=== PATIENT | female | born 1960 | race Caucasian/White ===

== ENCOUNTER 2019-10-22 20:00 | Emergency (ER) | payer MEDICARE, MEDICAID, SELFPAY ==
--- NOTE | ~2019-10-22 | XR_ITS ---
XR hand RT min 3V, XR wrist RT min 3V 10/22/2019 20:39 Indication: Diffuse right hand and wrist pain with swelling. Status post hand stuck in appliance. Procedure: 3 views right hand and 4 views right wrist Comparison: No prior studies for comparison. Findings: No acute fracture, subluxation or dislocation. No significant focal soft tissue abnormality . There is mild polyarticular osteoarthritis. No foreign bodies. No erosive changes. Impression: 1: No acute fracture. Reviewed, dictated and finalized at location A. LAC POLISHER Impression: 1: No acute fracture. Impression: 1: No acute fracture.
[2019-10-22 20:19] VITALS: BP 131/94; PULSE 97; RESP 20; TEMP 36.6; O2SAT 99
[2019-10-22] MEDS: KETOROLAC (*BKC) 60 MG/2 ML VIAL IM (20:34)
--- NOTE | 2019-10-22 20:44 | ED.UPPEXIN ---
HPI - Extremity Injury (Upper) General Chief Complaint: Extremity Injury, Upper Stated Complaint: hurt hand Source: patient Mode of arrival: ambulatory Limitations: no limitations History of Present Illness HPI narrative: 59 y/o Patient presents with injury to her right hand the ulnar aspect after she got it caught in a social worker aide causing some bruising and swelling to the ulnar side of her right hand with pain and tenderness in her 4th and 5th fingers with good range of motion strong brisk radial pulse with some mild tingling in her right hand has good range of motion although decreased secondary to pain and inflammation. complaint: injury to: right Onset (ago): hour(s) Other Extremity Injury: Right: hand and wrist Other injuries: none Handedness: right Place: home Severity: moderate Severity scale (1-10): 5 Relieving factors: cold therapy and immobilization Exacerbating factors: none, immobilization and movement of extremity Context: injury Associated symptoms: denies other symptoms Related Data Home Medications Medication Instructions Recorded Confirmed albuterol sulfate 2 puff INHALATION Q4-6H PRN 10/22/19 10/22/19 duloxetine 60 mg PO BID 10/22/19 10/22/19 Allergies Allergy/AdvReac Type Severity Reaction Status Date / Time codeine Allergy Mild NAUSEA AND Verified 10/22/19 20:29 VOMITTING Sulfa (Sulfonamide Allergy Mild Nausea Verified 10/22/19 20:29 Antibiotics) Sulfonamides Allergy Intermediate Unknown Uncoded 10/22/19 20:29 [facility] Past Medical History Medical History Anxiety Fibromyalgia HTN (hypertension) Social History Social History Smoking status: Never smoker Exam Const: General: no acute distress and alert Orientation/consciousness: patient oriented x3 HENMT: Head: normal to inspection Eyes: Conjunctivae: conjunctivae normal EOM: EOMs intact bilaterally Neck: Neck: normal visual inspection Chest: Chest palpation & inspection: normal inspection of the chest Resp: Effort & Inspection: normal respiratory effort Auscultation: clear to auscultation bilaterally Cardio: Rate: regular rate Rhythm: regular rhythm GI: GI Palp: Yes Soft to palpation Back/Spine/Pelvis: Back: no CVA tenderness Skin: General skin exam: normal color Rashes: no rashes Extrem: Other: Right hand with some bruising and swelling with mild decreased range of motion secondary to pain and inflammation has a good strong brisk radial pulse Course Vital Signs Vital signs: Vital Signs Temperature 36.6 C 10/22/19 20:19 Pulse Rate 97 10/22/19 20:19 Respiratory Rate 10/22/19 20:19 Blood Pressure 131/94 H 10/22/19 20:19 Pulse Oximetry 99 10/22/19 20:19 Temperature 36.6 C 10/22/19 20:19 Pulse Rate 97 10/22/19 20:19 Respiratory Rate 10/22/19 20:19 Blood Pressure 131/94 H 10/22/19 20:19 Pulse Oximetry 99 10/22/19 20:19 Critical Care Time Critical Care Time Critical Care Time: No Discharge Plan Discharge Clinical Impression: Sprain and strain of wrist Sprain of hand, right Qualifiers: Encounter type: initial encounter Qualified Code(s): S63.91XA - Sprain of unspecified part of right wrist and hand, initial encounter Contusion Qualifiers: Encounter type: initial encounter Contusion area: hand Laterality: right Qualified Code(s): S60.221A - Contusion of right hand, initial encounter Patient Disposition: Home, Self-Care Condition: Stable Instructions: Antibiotic Form Additional Instructions: take Motrin 600 mg twice daily with meals x1 week, can take prescribed medicine as needed, and follow-up with primary care physician if symptoms persist or worsen. Prescriptions: New tramadol [Ultram] 50 mg tablet 50 mg PO Q6H PRN (Reason: pain) Qty: 20 RF: 0 No Action albuterol sulfate 90 mcg/actuation HFA aerosol inhaler
[2019-10-22 21:01] VITALS: RESP 15
== END 2019-10-22 21:02 | disposition home or self-care (01) ==
PROVIDERS: Emergency Provider Emergency Medicine; PCP Family Medicine
DX: S63.91XA Sprain of unspecified part of right wrist and hand, initial encounter (principal); S60.221A Contusion of right hand, initial encounter; W22.8XXA Striking against or struck by other objects, initial encounter
CPT/HCPCS: 73110; 73130; 96372; 99283; J1885

== ENCOUNTER 2019-10-30 11:40 | Emergency (ER) | payer MEDICARE, MEDICAID, SELFPAY ==
[2019-10-30 11:40] VITALS: BP 134/84; PULSE 64; RESP 18; TEMP 36.2; O2SAT 97
--- NOTE | 2019-10-30 12:02 | ED.GENADULT ---
HPI - General Adult General Chief complaint: Unspecified Stated complaint: Needs to have a splint/cast put on History of Present Illness HPI narrative: Vanita was referred to the emergency department by her PCP for a splint placement. She a had an injury to her right wrist on 10/23. Radiographs at that time showed no fracture. However she had continued pain and bruising to her PCP was concern for fracture and center of with a script for an ulnar gutter placement. She has no concerns other than her wrist pain. She has had no new injury to the area. She reports good sensation and movement. MD complaint: Referred to ED by PCP for ulnar gutter splint Related Data Home Medications Medication Instructions Recorded Confirmed albuterol sulfate 2 puff INHALATION Q4-6H PRN 10/22/19 10/22/19 duloxetine 60 mg PO BID 10/22/19 10/22/19 Allergies Allergy/AdvReac Type Severity Reaction Status Date / Time codeine Allergy Mild NAUSEA AND Verified 10/22/19 20:29 VOMITTING Sulfa (Sulfonamide Allergy Mild Nausea Verified 10/22/19 20:29 Antibiotics) Sulfonamides Allergy Intermediate Unknown Uncoded 10/22/19 20:29 Review of Systems Constitutional: Constitutional: Denies chills and Denies fever(s) Eyes: Eyes: Denies change in vision ENT: Denies Normal hearing present, Denies vertigo and Denies dizziness Cardiovascular: Cardiovascular: Denies chest pain with activity, Denies syncope, Denies edema and Denies dyspnea on exertion Respiratory: Respiratory: Denies cough Gastrointestinal: Gastrointestinal: Denies abdominal pain, Denies diarrhea, Denies nausea and Denies vomiting Genitourinary: Genitourinary: Denies hematuria and Denies dysuria Musculoskeletal: Musculoskeletal: Denies deformity Neurologic: Denies behavioral changes, Denies confusion, Denies vertigo, Denies dizziness, Denies syncope and Denies loss of vision Psychiatric: Psychiatric: Denies anxiety, Denies behavioral changes, Denies confusion and Denies depression Endocrine: Endocrine: Reports no additional endocrine complaints Hematologic/Lymphatic: Hematologic/Lymphatic: Reports no additional hematologic/lymphatic complaints Allergic/Immunologic: Allergic/Immunologic: Reports no additional allergic/immunologic complaints [facility] Past Medical History Medical History Anxiety Fibromyalgia HTN (hypertension) Social History Social History Smoking status: Never smoker Exam Const: General: cooperative, healthy appearing, comfortable, no acute distress, well developed, alert, awake and Physically active; No confusion Orientation/consciousness: oriented to person, oriented to place, oriented to time and No confusion HENMT: Head: normal to inspection, normocephalic and atraumatic Ears: hearing grossly normal bilaterally and external ears normal General nose exam: Normal external nose present Resp: Effort & Inspection: normal respiratory effort, able to speak in complete sentences and no respiratory distress Cardio: Jugular venous distension: no JVD Rate: regular rate Rhythm: regular rhythm Neuro: General: oriented to person, oriented to place, oriented to time and No confusion Cranial nerves: Yes Equal, round and reactive pupils present and No Normal hearing present Other: Brown colored contusion on the dorsal side of her right wrist that was tender to palpation Extrem: Other: discoloration as above. Had full range of motion in her right wrist but was tender to palpation on the lateral side of her right wrist. Decreased strength secondary to have pain Psych: Mental Status: mental status grossly normal Course Course Emergency Course: Vanita was seen and evaluated. She was neurovascularly intact and radiographs in our system showed no fracture. She was placed in a in ulnar gutter splint by her PCP and her request and to follow-up with
--- NOTE | 2019-10-30 12:57 | PC.NURSE ---
r. R. SHORT ARM [facility] SPLINT APPLYED ORDERED.FINGERS PINK STATES FELL GOOD. TO HAVE FOLLOW UP WITH HER MD NEXT WEEK.
== END 2019-10-30 12:16 | disposition home or self-care (01) ==
PROVIDERS: Emergency Provider Family Medicine; PCP Family Medicine
DX: M25.531 Pain in right wrist (principal)
CPT/HCPCS: 29125; 99282

== ENCOUNTER 2019-11-08 08:16 | Outpatient (CLI) | payer MEDICARE, MEDICAID, SELFPAY ==
--- NOTE | ~2019-11-08 | XR_ITS ---
EXAMINATION: XR chest 2V DATE: 11/08/2019 08:30 INDICATION: Cough and lung pain. TECHNIQUE: Frontal and lateral views of the chest were obtained. COMPARISON: Chest 2 views 12/27/2018, chest CT 01/04/2017 FINDINGS: There are innumerable calcified nodules in the lungs and calcified hilar lymph nodes, consi stent with old granulomatous disease. No pleural effusion or pneumothorax. The heart size is normal. IMPRESSION: 1. No acute cardiopulmonary disease. Reviewed, dictated and finalized at location A. ER RUNNER
== END 2019-11-08 08:17 | disposition home or self-care (01) ==
LOC: CHSIMG 08:18
PROVIDERS: PCP Family Medicine; Visit Provider Family Medicine
DX: R05 Cough (principal)
CPT/HCPCS: 71046

== ENCOUNTER 2019-12-06 13:30 | Outpatient (CLI) | payer MEDICARE, SELFPAY ==
[2019-12-06 14:07] LABS: Influenza Control Valid (Valid)
== END 2019-12-06 13:31 | disposition home or self-care (01) ==
PROVIDERS: PCP Family Medicine; Visit Provider Family Medicine
DX: J06.9 Acute upper respiratory infection, unspecified (principal)
CPT/HCPCS: 87804

== ENCOUNTER 2020-02-07 00:34 | Emergency (ER) | payer MEDICARE, MEDICAID, SELFPAY ==
--- NOTE | ~2020-02-07 | CT_ITS ---
EXAMINATION: CT brain wo con DATE: 02/07/2020 05:57 INDICATION: Head injury. TECHNIQUE: Computed tomography (CT) of the head was performed without intravenous contrast. The mA wa s adjusted according to patient size. Iterative reconstruction technique was employed. The dose-lengt h product was 605.33 mGy-cm. COMPARISON: None FINDINGS: There is no intracranial hemorrhage, acute infarction, or abnormal intracranial mass lesion . The ventricles are normal in size. There are likely changes of left ocular lens replacement surgery . The paranasal sinuses are clear. The mastoid air cells are normal. IMPRESSION: 1. Normal brain. Reviewed, dictated and finalized at location A. IMPRESSION: 1. Normal brain.
--- NOTE | ~2020-02-07 | CT_ITS ---
EXAMINATION: CT cervical spine wo con DATE: 02/07/2020 05:58 INDICATION: Head injury. TECHNIQUE: Computed tomography (CT) of the cervical spine was performed without intravenous contrast. Automated exposure control and iterative reconstruction technique were employed. The dose-length pro duct was 605.33 mGy-cm. COMPARISON: CT cervical spine 06/15/2019 FINDINGS: Bone alignment is normal. Vertebral body heights are normal. There is mildly decreased disc height at C4-C5 and C5-C6. Calcified pulmonary nodules are consistent with old granulomatous disease . The following disc levels are specifically discussed: C2-C3: There is mild left uncovertebral joint osteoarthritis. There is mild right and severe left fac et joint osteoarthritis. There is mild left neural foraminal stenosis. There is no central canal sten osis. C3-C4: There is moderate right and mild left uncovertebral joint osteoarthritis. There is mild right and severe left facet joint osteoarthritis. There is mild bilateral neural foraminal stenosis. There is no central canal stenosis. C4-C5: There is severe bilateral uncovertebral joint osteoarthritis. There is moderate right and jossue re left facet joint osteoarthritis. There is mild bilateral neural foraminal stenosis. There is mild central canal stenosis. C5-C6: There is moderate bilateral uncovertebral joint osteoarthritis. There is mild bilateral facet joint osteoarthritis. There is mild bilateral neural foraminal stenosis. There is no central canal st enosis. C6-C7: There is no uncovertebral joint osteoarthritis. There is no facet joint osteoarthritis. There is no neural foraminal stenosis. There is no central canal stenosis. C7-T1: There is no uncovertebral joint osteoarthritis. There is mild bilateral facet joint osteoarthr itis. There is no neural foraminal stenosis. There is no central canal stenosis. IMPRESSION: 1. No fracture. 2. Mild cervical spondylosis. Reviewed, dictated and finalized at location A.
[2020-02-07 00:35] VITALS: BP 107/52; PULSE 65; RESP 20; TEMP 36.4; O2SAT 98
--- NOTE | 2020-02-07 00:42 | ED.WOUNDLAC ---
HPI - Wound/Laceration General Chief Complaint: Wound/Laceration Stated Complaint: Head injury Source: patient Mode of arrival: ambulatory Limitations: no limitations History of Present Illness HPI narrative: patient presents some after she fell out of bed and injured her occipital scalp causing a laceration, occurred approximately half an hour ago with some no blurry vision no headaches does have some neck discomfort, no nausea vomiting. Patient has past medical history of hypertension. No focal deficits has good range of motion in her neck although mildly tender. Onset (ago): hour(s) Location: scalp Place: home Context: accidental Associated symptoms: pain Related Data Home Medications Medication Instructions Recorded Confirmed albuterol sulfate 2 puff INHALATION Q4-6H PRN 10/22/19 10/22/19 duloxetine 60 mg PO BID 10/22/19 10/22/19 metoprolol tartrate 25 mg PO BID 02/07/20 02/07/20 omeprazole 40 mg PO DAILY 02/07/20 02/07/20 sumatriptan succinate 100 mg PO 02/07/20 Allergies Allergy/AdvReac Type Severity Reaction Status Date / Time codeine Allergy Mild NAUSEA AND Verified 10/22/19 20:29 VOMITTING Sulfa (Sulfonamide Allergy Mild Nausea Verified 10/22/19 20:29 Antibiotics) Sulfonamides Allergy Intermediate Unknown Uncoded 10/22/19 20:29 Review of Systems Review of Systems: All systems reviewed & are unremarkable except as noted in HPI and below PMFSH Past Medical History Medical History Anxiety Fibromyalgia HTN (hypertension) Social History Social History Smoking status: Never smoker Gender identity (if verbalized by the patient): Female Exam Const: General: no acute distress Orientation/consciousness: patient oriented x3 HENMT: Head: normal to inspection Eyes: Conjunctivae: conjunctivae normal Pupils: Equal, round and reactive pupils present EOM: EOMs intact bilaterally Neck: Neck: normal visual inspection and no lymphadenopathy Chest: Chest palpation & inspection: normal inspection of the chest Resp: Effort & Inspection: normal respiratory effort Cardio: Rate: regular rate Rhythm: regular rhythm GI: GI Palp: Yes Soft to palpation Skin: General skin exam: normal color Rashes: no rashes Neuro: General: patient oriented x3, moves all extremities, no meningeal signs and no focal motor deficits Extrem: General: normal to inspection Other: laceration to occipital area of her scalp some mild neck discomfort with palpation. Psych: Mental Status: mental status grossly normal Affect: normal affect Attitude: cooperative Thought content: Yes Normal thought content present Procedures Laceration Laceration 1: Date: 02/07/20 Time: 00:57 Site: scalp Size (cm): 3 Description: linear ====== Skin Level ====== Skin layer closed with: [email or web address] Number of sutures: 5 ====== Subcutaneous Layer ====== ====== Muscle Layer ====== ====== Tendon Layer ====== Critical Care Time Critical Care Time Critical Care Time: No Discharge Plan Discharge Clinical Impression: Laceration Prescriptions: No Action albuterol sulfate 90 mcg/actuation HFA aerosol inhaler 2 puff INHALATION Q4-6H PRN (Reason: Shortness Of Breath) RF: 0 duloxetine 60 mg capsule,delayed release(DR/EC) 60 mg PO BID RF: 0 sumatriptan succinate 100 mg tablet 100 mg PO PRN PRN (Reason: Headache) RF: 0 omeprazole 40 mg capsule,delayed release(DR/EC) 40 mg PO DAILY RF: 0 metoprolol tartrate 25 mg tablet 25 mg PO BID RF: 0 Follow-up/Referrals: Jaylon Garnett MD [Primary Care Provider] -
[2020-02-07 01:03] VITALS: BP 136/89; PULSE 82; RESP 20; TEMP 36.6; O2SAT 98
== END 2020-02-07 01:24 | disposition home or self-care (01) ==
PROVIDERS: Emergency Provider Emergency Medicine; PCP Family Medicine
DX: S01.01XA Laceration without foreign body of scalp, initial encounter (principal); I10 Essential (primary) hypertension; W06.XXXA Fall from bed, initial encounter
CPT/HCPCS: 12002; 70450; 72125; 99282; 99284

== ENCOUNTER 2020-03-19 10:09 | Outpatient (CLI) | payer MEDICARE, MEDICAID, SELFPAY ==
--- NOTE | ~2020-03-19 | XR_ITS ---
EXAMINATION: XR hand RT min 3V EXAM DATE: 03/19/2020 10:31 INDICATION: Pain in the joints of right hand. States injury 6 months ago, 4th finger pain. TECHNIQUE: Right hand frontal, lateral and oblique projections obtained and reviewed. Comparison is m bala to prior examination from 10/22/2019. FINDINGS: Right metacarpal bones are unremarkable. No periosteal reaction to suggest subacute fract ure. There are no acute fractures or dislocations identified. There is no subcutaneous gas. The sof t tissue is unremarkable. There are no radiopaque foreign bodies. There is mild polyarticular inte rphalangeal primary osteoarthritis. IMPRESSION: Mild polyarticular right interphalangeal osteoarthritis. Reviewed, dictated and finalized at location B.
== END 2020-03-19 10:10 | disposition home or self-care (01) ==
LOC: CHSIMG 10:11
PROVIDERS: PCP Family Medicine; Visit Provider Family Medicine
DX: M25.541 Pain in joints of right hand (principal)
CPT/HCPCS: 73130

== ENCOUNTER 2020-03-24 12:35 | Outpatient (CLI) | payer MEDICARE, MEDICAID, SELFPAY ==
--- NOTE | ~2020-03-24 | MM_ITS ---
EXAMINATION: MM screening [facility] BI w kim HISTORY: Screening mammogram TECHNIQUE: Craniocaudal and mediolateral oblique 3-D tomosynthesis images were obtained and synthetic 2-D images were generated. CAD analysis was submitted and interpreted. COMPARISON: Comparison to multiple prior studies sequentially, with oldest reviewed study dated 06/14. BREAST PARENCHYMAL COMPOSITION: There are scattered areas of fibroglandular density. FINDINGS: There is no evidence of suspicious mass, calcification, or architectural distortion to sugg est malignancy in either breast. There has been no suspicious interval change. IMPRESSION: 1. No mammographic evidence of malignancy. 2. Recommend routine screening mammography in one year. BI-RADS Category 1: Negative Reviewed, dictated and finalized at location A.
== END 2020-03-24 12:36 | disposition home or self-care (01) ==
LOC: CHSIMG 12:36
PROVIDERS: PCP Family Medicine; Visit Provider Family Medicine
DX: Z12.31 Encounter for screening mammogram for malignant neoplasm of breast (principal)
CPT/HCPCS: 77063; 77067

== ENCOUNTER 2020-03-26 12:10 | Outpatient (CLI) | payer MEDICARE, MEDICAID, SELFPAY ==
--- NOTE | ~2020-03-26 | DEXA_ITS ---
BMD(1) Young-Adult(2) Age-Matched(3) Region (g/cm2) T-score Z-score WHO Classification L1 1.081 -0.5 0.0 Normal L2 1.221 0.1 0.6 Normal L3 1.264 0.4 0.9 Normal L4 1.261 0.3 0.8 Normal L1-L4 1.211 0.1 0.6 Normal Trend: L1-L4 Change vs Change vs Measured Age BMD(1) Baseline Previous Date (years) (g/cm2) (%) (%) 03/26/2020 60.1 1.211 -4.4* -4.4* 11[age]25/2016 56.7 1.267 baseline - * - Indicates significant change based on 95% confidence interval. 1 - Statistically 68% of repeat scans fall within 1SD (+- 0.010 g/cm2 for AP Spine L1-L4) 2 - [place] (Combined NHANES (ages 20-30) / Sky[employer] (ages 20-40)) AP Spine Reference Population (v112) 3 - Matched for Age, Weight (females 25-100 kg), Ethnic 11 - World Health Organization - Definition of Osteoporosis and Osteopenia for Women: Normal = T-score at or above -1.0 SD; Osteopenia = T-score between -1.0 and -2.5 SD; Osteoporosis = T-score at or below -2.5 SD; (WHO definitions only apply when a young healthy Women reference database is used to determine T-scores.) Printed: 03/26/2020 1:01:48 PM (13.60)76:3.00:50.00:12.0 0.00:9.96 0.60x1.05 27.9:%Fat=52.1% 0.00:0.00 0.00:0.00 Filename: [id number] Scan Mode: Standard;bTendocan 37.0 [employer] [id number] BMD(1) Young-Adult(2,7) Age-Matched(3) Region (g/cm2) T-score Z-score WHO Classification Neck Left 1.194 1.1 1.9 Normal Right 1.029 -0.1 0.7 Normal Mean 1.112 0.5 1.3 Normal Difference 0.164 -1.2 -1.2 - Total Left 1.103 0.8 1.2 Normal Right 0.955 -0.4 0.0 Normal Mean 1.029 0.2 0.6 Normal Difference 0.149 -1.2 -1.2 - Hip [place] Length Comparison (mm) (Right = 101.4 mm) (Mean = 108.0 mm) (Left = 101.4 mm) Trend: Total Mean Change vs Change vs Measured Age BMD(1) Baseline Previous Date (years) (g/cm2) (%) (%) 03/26/2020 60.1 1.029 baseline - 1 - Statistically 68% of repeat scans fall within 1SD (+- 0.010 g/cm2 for DualFemur Total) 2 - [place] (Combined NHANES (ages 20-30) / [employer] (ages 20-40)) Femur Reference Population (v112) 3 - Matched for Age, Weight (females 25-100 kg), Ethnic 7 - DualFemur Total T-score difference is 1.2. Asymmetry is Significant. 11 - World Health Organization - Definition of Osteoporosis and Osteopenia for Women: Normal = T-score at or above -1.0 SD; Osteopenia = T-score between -1.0 and -2.5 SD; Osteoporosis = T-score at or below -2.5 SD; (WHO definitions only apply when a young healthy Women reference database is used to determine T-scores.) Printed: 03/26/2020 1:01:49 PM (13.60); Filename: [id number]; Right Femur; 20.7:%Fat=37.4%; Neck Angle (deg)= 56; Scan Mode: Standard 37.0 uGy; Left Femur; 21.8:%Fat=38.4%; Neck Angle (deg)= 62; Scan Mode: Standard 37.0 uGy [employer] [id number] Dear Marlene Calvert, Your patient Vanita Valladares completed a BMD test on 03/26/2020 using the [employer] DXA System (analysis version: 13.60) manufactured by [employer]. The following summarizes the results of our evaluation. PATIENT BIOGRAPHICAL: Name: Vanita Valladares Date: 1960 Height: 66.0 in.
== END 2020-03-26 12:11 | disposition home or self-care (01) ==
LOC: CHSIMG 12:12
PROVIDERS: PCP Family Medicine; Visit Provider Nurse Practitioner Family
DX: Z78.0 Asymptomatic menopausal state (principal)
CPT/HCPCS: 77080

== ENCOUNTER 2020-05-22 11:53 | Outpatient (CLI) | payer MEDICARE, SELFPAY ==
[2020-05-23 14:38] LABS: SARS-CoV-2 RNA PCR Negative
== END 2020-05-22 11:54 | disposition home or self-care (01) ==
LOC: CHSLAB 11:56
PROVIDERS: PCP Family Medicine; Visit Provider Family Medicine
DX: J00 Acute nasopharyngitis [common cold] (principal); Z20.828 Contact with and (suspected) exposure to other viral communicable diseases
CPT/HCPCS: 87635; C9803; U0003

== ENCOUNTER 2021-03-25 12:43 | Outpatient (CLI) | payer MEDICARE, MEDICAID, SELFPAY ==
--- NOTE | ~2021-03-25 | MM_ITS ---
EXAMINATION: MM screening [facility] BI w kim HISTORY: Screening TECHNIQUE: Craniocaudal and mediolateral oblique 3-D tomosynthesis images were obtained and synthetic 2-D images were generated. CAD analysis was submitted and interpreted. COMPARISON: Comparison to multiple prior studies sequentially, with oldest reviewed study dated 10/25. BREAST PARENCHYMAL COMPOSITION: There are scattered areas of fibroglandular density. FINDINGS: There are developing asymmetries in the right breast. The left breast is stable without jason dence for malignancy. IMPRESSION: 1. Developing right breast asymmetries. 2. Additional mammographic views and possible breast ultrasound are recommended. BI-RADS Category 0: Incomplete: Needs additional imaging evaluation. Reviewed, dictated and finalized at location A. IMPRESSION: 1. Developing right breast asymmetries. 2. Additional mammographic views and possible breast ultrasound are recommended . BI-RADS Category 0: Incomplete: Needs additional imaging evaluation.
== END 2021-03-25 12:44 | disposition home or self-care (01) ==
LOC: CHSIMG 12:47
PROVIDERS: PCP Family Medicine; Visit Provider Family Medicine
DX: Z12.31 Encounter for screening mammogram for malignant neoplasm of breast (principal)
CPT/HCPCS: 77063; 77067

== ENCOUNTER 2021-04-01 08:37 | Outpatient (CLI) | payer MEDICARE, MEDICAID, SELFPAY ==
--- NOTE | ~2021-04-01 | MMUS_ITS ---
CORRECTED REPORT order change 04/02/21 [facility] [place] EXAMINATION: MM diagnostic mammo unilat RT, US breast RT limited HISTORY: Right breast asymmetries on screening mammogram TECHNIQUE: Additional 3-D tomosynthesis images of the right breast were performed and synthetic 2-D images were generated. CAD analysis was submitted and interpreted. High resolution limited right breast ultrasound was performed. COMPARISON: Prior mammograms dating back to 10/25/2016 FINDINGS: MAMMOGRAPHIC FINDINGS: There is a 6 mm mass in the subareolar aspect of the slightly outer breast at the 9:00 location which appears to be stable when compared to prior mammograms. An asymmetry in the posterior third of the slightly inner breast on screening mammogram disperses with spot compression. ULTRASOUND: There is a 6 mm oval, circumscribed, parallel, hypoechoic mass with no posterior features or internal vascularity at the 9:00 location near the nipple. IMPRESSION: 1. Probably benign right breast mass. 2. Recommend 6 month follow-up right diagnostic mammogram and ultrasound. BI-RADS category 3, probably benign findings. Reviewed, dictated and finalized at location A. MTDD IMPRESSION: 1. Probably benign right breast mass. 2. Recommend 6 month follow-up right diagnostic mammogram and ultrasound. BI-RADS category 3, probably benign findings.
== END 2021-04-01 08:38 | disposition home or self-care (01) ==
PROVIDERS: PCP Family Medicine; Visit Provider Family Medicine
DX: R92.8 Other abnormal and inconclusive findings on diagnostic imaging of breast (principal)
CPT/HCPCS: 76642; 77061; 77065; G0279

== ENCOUNTER 2021-05-06 10:18 | Outpatient (CLI) | payer MEDICARE, MEDICAID, SELFPAY ==
--- NOTE | ~2021-05-06 | XR_ITS ---
EXAMINATION: XR elbow LT min 3V DATE: 05/06/2021 10:38 INDICATION: Left elbow pain TECHNIQUE: Anteroposterior, two oblique and lateral views of the left elbow were obtained. COMPARISON: 06/30/2006 FINDINGS: Alignment is normal. No fracture or joint effusion. Joint spaces are normal. Soft tissues a re unremarkable. IMPRESSION: 1. No acute osseous abnormality. Reviewed, dictated and finalized at location B.
== END 2021-05-06 10:19 | disposition home or self-care (01) ==
LOC: CHSLAB 10:20
PROVIDERS: PCP Family Medicine; Visit Provider Family Medicine
DX: M25.522 Pain in left elbow (principal)
CPT/HCPCS: 73080

== ENCOUNTER 2021-05-12 09:34 | Outpatient (CLI) | payer MEDICARE, MEDICAID, SELFPAY ==
--- NOTE | ~2021-05-12 | MR_ITS ---
EXAMINATION: MR elbow LT wo con DATE: 05/12/2021 12:17 INDICATION: Left arm pain TECHNIQUE: Magnetic resonance imaging (MRI) of the left elbow was performed without intravenous contr ast. Sequences included coronal, axial, and sagittal PD-weighted FS FSE and coronal, axial, and sagit leah PD-weighted FSE. COMPARISON: None FINDINGS: Osseous/other: Normal alignment. Normal marrow signal with no marrow edema, fracture, osteochondral lesion or abnor mal marrow replacing process. Minimal osteoarthritis at the left elbow with mild nonuniform joint spa ce narrowing along the ulnar side of the ulnotrochlear articulation. Tendons: Triceps and brachialis tendons are normal. Mild tendinopathy without discrete tear at the radial inse rtion of the distal biceps brachii tendon. Moderate tendinopathy at the lateral epicondylar origin of the common extensor tendon wad without discrete tear. Minimal tendinopathy of the medial epicondylar origin of the common flexor tendon wad. Ligaments: The medial and lateral collateral ligament complexes are normal. Cubital tunnel: Cubital tunnel is unremarkable with normal signal and caliber of the ulnar nerve. Fluid: Physiologic amount of fluid the elbow joint. IMPRESSION: 1. Lateral epicondylitis with moderate tendinopathy without discrete tear at the common extensor tend on wad. 2. Mild tendinopathy without discrete tear at the distal biceps brachii tendon and minimal tendinopat hy at the origin of the common flexor tendon wad. Reviewed, dictated and finalized at location A. IMPRESSION: 1. Lateral epicondylitis with moderate tendinopathy without discrete tear at th e common extensor tendon wad. 2. Mild tendinopathy without discrete tear at the distal biceps brachii tendon and minimal tendinopathy at the origin of the common flexor tendon wad.
== END 2021-05-12 09:35 | disposition home or self-care (01) ==
LOC: CHSIMG 09:35
PROVIDERS: PCP Family Medicine; Visit Provider Family Medicine
DX: M25.522 Pain in left elbow (principal)
CPT/HCPCS: 73221

== ENCOUNTER → 2021-06-12 16:10 | Emergency (ER) | payer MEDICARE, MEDICAID, SELFPAY | END | disposition left against medical advice (07) | LOC: CHSED 16:13 | PROVIDERS: Emergency Provider Emergency Medicine; PCP Family Medicine | DX: Z53.8 Procedure and treatment not carried out for other reasons (principal) | CPT/HCPCS: 99199 ==

== ENCOUNTER 2021-09-29 12:16 | Outpatient (CLI) | payer OTHER, SELFPAY ==
--- NOTE | ~2021-09-29 | XR_ITS ---
XR shoulder RT min 2V DATE: 09/29/2021 12:49 INDICATION: Right shoulder pain TECHNIQUE: 4 views COMPARISON: 11/30/2017 right shoulder FINDINGS: Extensive calcified granulomas are noted throughout the included lung rausch. Calcified rig ht hilar nodes are noted bilaterally. Diffuse osteopenia. The no fracture or dislocation, periosteal reaction or bone destruction. There is joint space target spurring of the right acromioclavicular joint. IMPRESSION: Osteopenia Degenerative change at the right acromioclavicular joint No fracture or dislocation Reviewed, dictated and finalized at location A. SURGEON/GENERAL DERMATOLOGIST
--- NOTE | ~2021-09-29 | XR_ITS ---
XR scapula RT DATE: 09/29/2021 12:51 INDICATION: Right shoulder pain TECHNIQUE: Neer and AP views COMPARISON: None FINDINGS: There is degenerative joint space narrowing and spurring at the right, clavicular joint. Diffuse osteopenia. No fracture or dislocation, periosteal reaction or bone destruction or abnormal soft tissue calcifica tion of the right shoulder is evident. Extensive old granulomatous disease of the lungs. IMPRESSION: Degenerative change at the right acromioclavicular joint Osteopenia No fracture or dislocation of right shoulder Reviewed, dictated and finalized at location A. SSMENT COUNSELOR
--- NOTE | ~2021-09-29 | XR_ITS ---
XR toe 1st RT min 2V DATE: 09/29/2021 12:50 INDICATION: Right toe pain TECHNIQUE: 4 views of right great toe COMPARISON: None FINDINGS: There is severe osteoarthritis at the first metatarsophalangeal joint including prominent j oint space narrowing and periarticular spurring. No fracture or dislocation, periosteal reaction or bone destruction of the right great toe is evident . 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 CTOR OF RECRUITING
== END 2021-09-29 12:17 | disposition home or self-care (01) ==
LOC: CHSIMG 12:21
PROVIDERS: PCP Family Medicine; Visit Provider Family Medicine
DX: M25.511 Pain in right shoulder (principal); M79.674 Pain in right toe(s)
CPT/HCPCS: 73010; 73030; 73660

== ENCOUNTER 2021-10-04 09:58 | Outpatient (CLI) | payer OTHER, SELFPAY ==
--- NOTE | ~2021-10-04 | MMUS_ITS ---
EXAMINATION: MM diagnostic irene RT w kim, US breast RT limited HISTORY: Follow-up right breast asymmetry TECHNIQUE: Additional 3-D tomosynthesis images of the right breast were performed and synthetic 2-D i mages were generated. CAD analysis was submitted and interpreted. High resolution Limited right breas t ultrasound was performed. COMPARISON: 04/01/2021 BREAST PARENCHYMAL COMPOSITION: Breast composed of scattered areas of fibroglandular density FINDINGS: MAMMOGRAPHIC FINDINGS: There are no new masses, calcifications or architectural distortion in the right breast to suggest ma lignancy. There is a stable subareolar mass measuring 6 mm, slightly outer aspect. No architectural d istortion ULTRASOUND: Limited right breast ultrasound: At 9:00, near the nipple there is a irregular shaped hypoechoic mass measuring 4 x 4 x 3 mm with posterior shadowing and antiparallel configuration. At 9:00 near the nip ple there is an oval hypoechoic mass measuring 4 x 3 x 2 mm, likely benign. IMPRESSION: 1. Irregular shaped hypoechoic right breast mass at 9:00 near the nipple measuring 4 mm maximum dimen michael. 2. Ultrasound-guided right breast biopsy recommended. BI-RADS category 4, suspicious findings. Reviewed, dictated and finalized at location A. RETE ANALYST IMPRESSION: 1. Irregular shaped hypoechoic right breast mass at 9:00 near the nipple measur ing 4 mm maximum dimension. 2. Ultrasound-guided right breast biopsy recommended. BI-RADS category 4, suspicious findings.
== END 2021-10-04 09:59 | disposition home or self-care (01) ==
LOC: CHSIMG 10:02
PROVIDERS: PCP Family Medicine; Visit Provider Family Medicine
DX: R92.8 Other abnormal and inconclusive findings on diagnostic imaging of breast (principal)
CPT/HCPCS: 76642; 77061; 77065; G0279

== ENCOUNTER 2021-10-08 08:23 | Outpatient (CLI) | payer OTHER, SELFPAY ==
[2021-10-08 08:27] VITALS: BMI 32.3
[2021-10-08 08:47] VITALS: BP 129/75; PULSE 64; RESP 16; TEMP 36.8; O2SAT 98
[2021-10-08] MEDS: ACETAMINOPHEN 325 MG TABLET 650 MG PO (08:50)
[2021-10-08] MEDS: FAMOTIDINE 20 MG TABLET PO (08:57)
[2021-10-08] MEDS: diphenhydrAMINE HCl CAP 25 MG CAPSULE PO (08:58)
--- NOTE | 2021-10-08 08:58 | PC.NURSE ---
Patient here for IV Bamianivimab/Etesevimab infusion due to positive for Covid and meeting high risk criteria. Education on medication given. No concerns voiced. Consent signed. PO pre meds and IV Bamianivimab/Etesevimab administered SEE NOV.
[2021-10-08 10:08] VITALS: BP 118/76; PULSE 60; RESP 14; TEMP 36.6; O2SAT 99
--- NOTE | 2021-10-08 10:09 | PC.NURSE ---
Tolerated infusion well. Safe exit of hospital.
== END 2021-10-08 08:24 | disposition home or self-care (01) ==
PROVIDERS: PCP Family Medicine; Visit Provider Family Medicine
DX: U07.1 COVID-19 (principal); I10 Essential (primary) hypertension; J44.9 Chronic obstructive pulmonary disease, unspecified; F89 Unspecified disorder of psychological development
CPT/HCPCS: A9270; M0245; Q0245

== ENCOUNTER 2021-11-10 12:46 | Outpatient (CLI) | payer OTHER, SELFPAY ==
--- NOTE | ~2021-11-10 | US_ITS ---
EXAMINATION: US breast cyst asp RT DATE: 11/10/2021 13:34 DRIVER INDICATION: Abnormal mass seen on recent examination. Biopsy requested. TECHNIQUE: Survey imaging of the right breast was performed. The cyst(s) at the 9:00 position was ta rgeted for aspiration. The procedure and its risk and benefits were discussed with the patient. Risk s included but were not limited to pain, bleeding and infection. The patient verbalized understandin g and provided written consent. A time-out was performed to document the patient's name, date of , and site of procedure. The m id outer aspect of the patient's right breast was prepped and draped in usual sterile fashion. 1% li docaine was used for local anesthesia. Utilizing ultrasound guidance, a 18-gauge needle was advanced into the lesion in the right breast. Following placement of the needle the cyst disappeared. No flui d could be aspirated with complete resolution of the mass of interest. The patient tolerated procedure without immediate complication. Sterile bandages were applied over t he aspiration site(s).] FINDINGS: Complete resolution of a cyst following puncture with 18-gauge needle. No evidence for rik gnancy. IMPRESSION: 1. Complete resolution of right breast cyst at the 9:00 position following needle placement. Routine yearly screening mammogram and regular clinical breast examination are recommended. BI-RADS CATEGORY 2 - BENIGN FINDINGS Reviewed, dictated and finalized at location D. ER IMPRESSION: 1. Complete resolution of right breast cyst at the 9:00 position following nee dle placement. Routine yearly screening mammogram and regular clinical breast examination are recommended. BI-RADS CATEGORY 2 - BENIGN FINDINGS
== END 2021-11-10 12:47 | disposition home or self-care (01) ==
LOC: CHSIMG 12:48
PROVIDERS: PCP Family Medicine; Visit Provider Family Medicine
DX: R92.8 Other abnormal and inconclusive findings on diagnostic imaging of breast (principal)
CPT/HCPCS: 19000

== ENCOUNTER 2022-01-27 07:35 | Outpatient (CLI) | payer OTHER, SELFPAY ==
--- NOTE | ~2022-01-27 | XR_ITS ---
EXAMINATION:XR_CERV2-3V_CR DATE: 01/27/2022 08:06 INDICATION: Right arm pain radiating into the neck and face TECHNIQUE: AP, lateral, lateral swimmers and odontoid views of the cervical spine are provided. COMPARISON: None FINDINGS: Alignment is normal. Odontoid is intact. Normal atlantoaxial interval. Vertebral body heights are no rmal. Disc spaces are normal. Multilevel mild right-sided and moderate left-sided cervical facet oste oarthritis. Prevertebral soft tissues are normal. IMPRESSION: 1. Multilevel mild right-sided and moderate left-sided cervical facet osteoarthritis. Reviewed, dictated and finalized at location A. IMPRESSION: 1. Multilevel mild right-sided and moderate left-sided cervical facet osteoarth ritis.
--- NOTE | ~2022-01-27 | XR_ITS ---
EXAMINATION: XR humerus RT INDICATION: Right arm pain TECHNIQUE: Two views of the right humerus are obtained. COMPARISON: None available FINDINGS: There is no fracture, dislocation, or subluxation. The bones, soft tissues, and joint space s are normal. IMPRESSION: 1. No acute osseous abnormality. Reviewed, dictated and finalized at location B.
--- NOTE | ~2022-01-27 | XR_ITS ---
EXAMINATION: XR shoulder RT min 2V INDICATION: Right shoulder pain TECHNIQUE: Four views of the right shoulder are submitted. COMPARISON: None FINDINGS: Normal alignment. No fracture. There is mild osteoarthritis of the glenohumeral and acromio clavicular joints. Soft tissues are unremarkable. Innumerable tiny calcified nodules are scattered th roughout the lungs, consistent with old granulomatous disease. IMPRESSION: 1. No acute osseous abnormality. Reviewed, dictated and finalized at location B.
== END 2022-01-27 07:36 | disposition home or self-care (01) ==
LOC: CHSIMG 07:37
PROVIDERS: PCP Family Medicine; Visit Provider Family Medicine
DX: M79.601 Pain in right arm (principal)
CPT/HCPCS: 72040; 73030; 73060

== ENCOUNTER 2022-07-05 09:37 | Outpatient (CLI) | payer MEDICARE, MEDICAID, SELFPAY ==
--- NOTE | ~2022-07-05 | MR_ITS ---
EXAMINATION: MR cervical spine wo con DATE: 07/05/2022 10:14 INDICATION: Cervical radiculopathy radiating down the right arm with weakness TECHNIQUE: Magnetic resonance imaging (MRI) of the cervical spine was performed without intravenous c ontrast. Sequences included sagittal T2-weighted FSE, sagittal T2-weighted FS FSE, sagittal T1-weight ed FSE, axial MERGE and axial T2-weighted FSE. COMPARISON: None FINDINGS: Bone alignment is normal. Vertebral body heights are normal. Bone marrow signal intensity is normal . Mild disc height loss at C4-C5 and C5-C6. Cord signal intensity is normal. Cervical soft tissues ar e unremarkable. The following disc levels are specifically discussed: C2-C3: The disc does not extend beyond the endplate margin. There is mild right and moderate left unc overtebral joint osteoarthritis. There is mild right and severe left facet joint osteoarthritis. Ther e is mild left neural foraminal stenosis. There is no central canal stenosis. C3-C4: The disc does not extend beyond the endplate margin. There is moderate bilateral uncovertebral joint osteoarthritis. There is mild right and severe left facet joint osteoarthritis. There is mild right and moderate left neural foraminal stenosis. There is no central canal stenosis. C4-C5: Disc is bulging. There is severe bilateral uncovertebral joint osteoarthritis. There is modera te right and severe left facet joint osteoarthritis. There is mild bilateral neural foraminal stenosi s. There is mild central canal stenosis with mild flattening of the ventral surface of the cord. C5-C6: Disc is bulging. There is moderate bilateral uncovertebral joint osteoarthritis. There is mild right and moderate left facet joint osteoarthritis. There is mild to moderate bilateral neural nicolas inal stenosis. There is mild central canal stenosis with mild flattening of the ventral surface of th e cord. C6-C7: The disc does not extend beyond the endplate margin. There is mild bilateral uncovertebral shahram nt osteoarthritis. There is mild bilateral facet joint osteoarthritis. There is no neural foraminal s tenosis. There is no central canal stenosis. C7-T1: The disc does not extend beyond the endplate margin. There is no uncovertebral joint osteoarth ritis. There is mild bilateral facet joint osteoarthritis. There is no neural foraminal stenosis. The re is no central canal stenosis. IMPRESSION: 1. Mild cervical spondylosis. Reviewed, dictated and finalized at location B.
== END 2022-07-05 09:38 | disposition home or self-care (01) ==
LOC: CHSIMG 09:39
PROVIDERS: PCP Family Medicine; Visit Provider Family Medicine
DX: M54.12 Radiculopathy, cervical region (principal)
CPT/HCPCS: 72141

== ENCOUNTER 2022-10-11 21:19 | Emergency (ER) | payer MEDICARE, MEDICAID, SELFPAY ==
--- NOTE | ~2022-10-11 | XR_ITS ---
EXAMINATION: XR chest 2V DATE: 10/11/2022 22:53 INDICATION: Cough and shortness of breath. TECHNIQUE: Frontal and lateral views of the chest were obtained. COMPARISON: chest two views 11/08/19, chest CT 01/04/2017 FINDINGS: Calcified pulmonary nodules and calcified hilar and mediastinal lymph nodes are consistent with old granulomatous disease. No pleural effusion or pneumothorax. The heart size is normal. IMPRESSION: 1. No acute cardiopulmonary disease. Reviewed, dictated and finalized at location A. ESS SAFETY MANAGEMENT ENGINEER
[2022-10-11 21:25] VITALS: BP 141/89; PULSE 94; RESP 16; TEMP 36.8; O2SAT 99
[2022-10-11 21:32] VITALS: O2SAT 100
--- NOTE | 2022-10-11 22:07 | ED.SOB ---
HPI - SOB/Dyspnea General Chief Complaint: Shortness of Breath/Dyspnea Stated Complaint: dizzy, shouder pain, trouble breathing Time Seen by Provider: 10/11/22 22:07 Source: patient and RN notes reviewed Mode of arrival: ambulatory Limitations: no limitations History of Present Illness MD elicited complaint: shortness of breath and cough Pertinent past history: COPD Onset (ago): day(s) (1) Context: recent illness Timing: constant Severity: moderate Exacerbating factors: exertion and coughing Relieving factors: nothing Known history of: COPD Associated symptoms: cough, wheezing and sputum production (clear) Treatment prior to arrival: none Related Data Home oxygen amount: none Home Medications Medication Instructions Recorded Confirmed albuterol sulfate 90 mcg/actuation 2 puff inhalation Q4-6H PRN 10/22/19 10/11/22 aerosol inhaler Shortness Of Breath duloxetine 60 mg capsule,delayed 60 mg PO BID 10/22/19 10/11/22 release metoprolol tartrate 25 mg tablet 25 mg PO BID 02/07/20 10/11/22 omeprazole 40 mg capsule,delayed 40 mg PO DAILY 02/07/20 10/11/22 release sumatriptan succinate 100 mg tablet 100 mg PO PRN PRN Headache 02/07/20 10/11/22 Allergies Allergy/AdvReac Type Severity Reaction Status Date / Time codeine Allergy Mild NAUSEA AND Verified 10/22/19 20:29 VOMITTING Sulfa (Sulfonamide Allergy Mild Nausea Verified 10/22/19 20:29 Antibiotics) Sulfonamides Allergy Intermediate Unknown Uncoded 10/22/19 20:29 Review of Systems Review of Systems: All systems reviewed & are unremarkable except as noted in HPI and below Constitutional: Constitutional: Denies fever(s) Cardiovascular: Cardiovascular: Denies chest pain Gastrointestinal: Gastrointestinal: Reports nausea and Denies vomiting Musculoskeletal: Musculoskeletal: Reports myalgias Neurologic: Reports headache(s) [facility] Past Medical History Medical History (Updated 10/12/22 @ 00:01 by Wei Wesley) Anxiety COPD (chronic obstructive pulmonary disease) (05/13/14) Depression (05/13/14) Fibromyalgia GERD (gastroesophageal reflux disease) (05/13/14) HTN (hypertension) Hyperlipidemia (06/09/14) Idiopathic peripheral autonomic neuropathy, unspecified (05/13/14) Social History Social History Smoking status: Never smoker Gender identity (if verbalized by the patient): Female Exam Const: General: healthy appearing, no acute distress and alert Nutritional Appearance: well nourished Orientation/consciousness: patient oriented x3 Limitations: no limitations HENMT: Head: normal to inspection Ears: external ears normal Face/Nose/Sinus: Normal external nose present Face and sinus: normal facial exam Mouth: Yes moist mucous membranes Eyes: Conjunctivae: conjunctivae normal Pupils: Equal, round and reactive pupils present EOM: EOMs intact bilaterally Neck: Neck: normal visual inspection Resp: Effort & Inspection: normal respiratory effort Auscultation: clear to auscultation bilaterally Cardio: Rate: regular rate Rhythm: regular rhythm GI: GI Palp: Yes Soft to palpation and No Tenderness to palpation present (GI) Auscultation: normal bowel sounds Back/Spine/Pelvis: Cervical Spine: cervical ROM normal Thoracic/Lumbar Spine: thoraco-lumbar ROM normal Skin: General skin exam: normal color Rashes: no rashes Neuro: General: patient oriented x3, moves all extremities, no focal motor deficits and CN's II-XI intact bilaterally Speech: normal speech Gait exam (Neuro): Normal gait present Extrem: General: normal to inspection and no clubbing, cyanosis or edema Psych: Mental Status: mental status grossly normal Affect: normal affect Attitude: cooperative Course Vital Signs Vital signs: Vital Signs Temperature 36.8 C 10/11/22 21:25 Pulse Rate 94 10/11/22 21:25 Respiratory Rate 16 10/11/22 21:25 Blood Pressure 141/89 H 10/11/22 21:25 Pulse Oximetry 99 0
[2022-10-11 22:14] LABS: Influenza A QL RT-PCR Negative (Negative); Influenza B QL RT-PCR Negative (Negative); RSV RNA, RT-PCR Negative (Negative); SARS-CoV-2 RNA PCR Negative (Negative)
[2022-10-11 22:49] LABS: Basophils Absolute Auto 0.08 K/mm3 (0.00-0.10); Basophils Percent Auto 0.8 % (0.0-1.0); Eosinophils Absolute Auto 0.13 K/mm3 (0.02-0.50); Eosinophils Percent Auto 1.3 % (1.0-6.0); Hematocrit 38.2 % (35.0-49.0); Hemoglobin 12.2 g/dL (12.0-15.0); Immature Granulocyte Absolute 0.03 K/mm3 (0.00-0.00); Immature Granulocyte Percent A 0.3 % (0.0-0.0); Lymphocytes Percent Auto 21.5 % (18.0-42.0); Mean Corpuscular HGB Conc 31.9 g/dL (32.0-36.0); Mean Corpuscular Hemoglobin 27.5 pg (27.0-31.0); Mean Corpuscular Volume 86.2 fL (78.0-102.0); Mean Platelet Volume 9.3 fl (9.2-11.8); Monocytes Percent Auto 8.8 % (2.0-11.0); Neutrophils Absolute Auto 6.9 K/mm3 (1.7-7.2); Neutrophils Percent Auto 67.3 % (50.0-70.0); Platelet Count Result 303 K/mm3 (150-420); Red Blood Count 4.43 M/mm3 (4.20-5.40); Red Cell Distribution Width 13.7 % (11.6-14.4); White Blood Count 10.2 K/mm3 (4.8-10.8)
[2022-10-11] MEDS: IPRATROPIUM 0.5 MG/ALBUTEROL SULFATE 2.5 MG AMPUL.NEB 3 ML INHALATION (22:51)
[2022-10-11 22:52] VITALS: PULSE 88; RESP 20; O2SAT 99
[2022-10-11 23:00] VITALS: PULSE 86; RESP 20
[2022-10-11 23:06] LABS: Lactic Acid Reflex 1.1 mmol/L (0.4-2.0)
[2022-10-11 23:10] LABS: Alanine Aminotransferase 16 U/L (14-59); Albumin Level 3.6 g/dL (3.4-5.0); Alkaline Phosphatase 127 U/L (46-116); Anion Gap 7 mmol/L (8-16); Aspartate Amino Transferase 12 U/L (15-37); Bilirubin,Total 0.6 mg/dL (0.00-1.00); Blood Urea Nitrogen 11 mg/dL (7-18); Calcium 8.7 mg/dL (8.5-10.1); Carbon Dioxide 27 mmol/L (21-32); Chloride 101 mmol/L (98-108); Estimated CRCL calculation 64 ml/min; Estimated Glomerular Filt Rate > 60; Glucose 102 mg/dL (70-99); Osmolality Calculated 279 mOsm/kg (285-295); Potassium 3.6 mmol/L (3.5-5.1); Sodium 135 mmol/L (136-145); Total Protein 7.5 g/dL (6.4-8.2)
[2022-10-11 23:16] LABS: NT Pro B Type Natriuretic Pept 107 pg/mL (0-125)
[2022-10-11 23:17] LABS: CRP 3.2 mg/dL (0.0-0.9)
[2022-10-11] MEDS: methylPREDNISolone SOD SUCC 125 MG VIAL IM (23:34)
[2022-10-11 23:38] VITALS: BP 131/81; PULSE 69; RESP 20; TEMP 36.7; O2SAT 100
--- NOTE | 2022-10-18 12:13 | PC.NURSE ---
FINAL BLOOD CULTURE RESULTS X2: NO GROWTH AFTER 5 DAYS. NO FURTHER ACTION NEEDED.
== END 2022-10-11 23:40 | disposition home or self-care (01) ==
PROVIDERS: Emergency Provider Emergency Medicine; PCP Family Medicine
DX: J44.1 Chronic obstructive pulmonary disease with (acute) exacerbation (principal); I10 Essential (primary) hypertension; Z20.822 Contact with and (suspected) exposure to COVID-19
CPT/HCPCS: 36415; 71046; 80053; 83605; 83735; 83880; 85025; 86140; 87040; 87637; 94640; 96372; 99283; J2930

== ENCOUNTER 2022-12-05 15:36 | Outpatient (CLI) | payer MEDICARE, MEDICAID, SELFPAY ==
--- NOTE | ~2022-12-05 | XR_ITS ---
EXAMINATION: XR chest 2V DATE: 12/05/2022 16:05 INDICATION: Shortness of breath, wheezing and 2 weeks of cough TECHNIQUE: PA and lateral views of the chest were obtained. COMPARISON: Chest radiograph dated 10/11/2022 FINDINGS: Again seen are numerous tiny calcified nodules in the bilateral lower lung zones along with calcified bilateral hilar and mediastinal lymph nodes consistent with old granulomatous disease. No other airs pace opacities, pulmonary edema, pleural effusion or pneumothorax. The cardiomediastinal silhouette i s normal. Mild thoracic spondylosis. IMPRESSION: 1. No acute cardiopulmonary disease. Reviewed, dictated and finalized at location B.
[2022-12-05 16:53] LABS: Strep Group A RT-PCR NOT DETECTED (Negative)
[2022-12-05 17:04] LABS: Influenza A QL RT-PCR Negative (Negative); Influenza B QL RT-PCR Negative (Negative); SARS-CoV-2 RNA PCR Negative (Negative)
== END 2022-12-05 15:37 | disposition home or self-care (01) ==
LOC: CHSLAB 15:37
PROVIDERS: PCP Family Medicine; Visit Provider Family Medicine
DX: J06.9 Acute upper respiratory infection, unspecified (principal); Z20.822 Contact with and (suspected) exposure to COVID-19
CPT/HCPCS: 71046; 87636; 87651

== ENCOUNTER 2023-04-28 09:32 | Outpatient (CLI) | payer MEDICARE, MEDICAID, SELFPAY ==
--- NOTE | ~2023-04-28 | XR_ITS ---
EXAMINATION: XR finger 1st LT min 2V DATE: 04/28/2023 09:56 INDICATION: Left thumb injury and pain. TECHNIQUE: 3 views of left thumb were obtained. COMPARISON: Left hand radiographs 08/30/2018 FINDINGS: Bone alignment is normal. No fracture. There is mild osteoarthritis of triscaphe joint, fir st carpometacarpal joint, first metatarsophalangeal joint, and first interphalangeal joint. IMPRESSION: 1. Polyarticular osteoarthritis. Reviewed, dictated and finalized at location B.
--- NOTE | ~2023-04-28 | XR_ITS ---
Left Hand Technique: PA, oblique, and lateral views were obtained. Clinical History: Pain Findings: No acute fracture or dislocation is seen. Osseous alignment is anatomic. There is moderate degenerative change at the fifth PIP joint. There is mild degenerative change of the second PIP and D IP joints. Remaining joint spaces are preserved. Soft tissues are unremarkable. Impression: Moderate degenerative change of the fifth PIP joint. Mild degenerative change of the second PIP and DIP joints. Reviewed, dictated and finalized at location M. Impression: Moderate degenerative change of the fifth PIP joint. Mild degenerative change of the second PIP and DIP joints.
--- NOTE | ~2023-04-28 | XR_ITS ---
Right Shoulder Technique: AP and scapular Y views were obtained. Clinical History: Pain Findings: No fracture or dislocation is seen. Osseous alignment is anatomic. The glenohumeral and acr omioclavicular joint spaces are preserved. There are probable innumerable presumed calcified granulom as in the visualized right lung. Impression: No osseous or articular reality. Innumerable presumed calcified granulomas in the visualized right lung. Reviewed, dictated and finalized at location . Impression: No osseous or articular reality. Innumerable presumed calcified granulomas in the visualized right lung.
== END 2023-04-28 09:33 | disposition home or self-care (01) ==
LOC: CHSIMG 09:34
PROVIDERS: PCP Family Medicine; Visit Provider Family Medicine
DX: M79.645 Pain in left finger(s) (principal); M25.511 Pain in right shoulder; M19.042 Primary osteoarthritis, left hand; R91.8 Other nonspecific abnormal finding of lung field
CPT/HCPCS: 73030; 73120; 73140

== ENCOUNTER 2023-05-30 10:07 | Outpatient (RCR) | payer MEDICARE, MEDICAID, SELFPAY ==
[2023-05-30 08:05] VITALS: BP_SYST 61
--- NOTE | 2023-05-30 10:02 | PTOPEVAL1 ---
Assessment and note entered by Yanci Pascal, PT Evaluation Information Assessment Status Evaluation Diagnosis R shoulder pain Onset 05/02/23 Subjective Information Vanita Valladares reports she was cleaning out a house and she was carrying a box through a door and she fell into the door with her right shoulder. As she fell, she felt a pop in her right shoulder on the back side. She also notes that she bent her left thumb all the way back to her left forearm. She notes the shoulder pain is getting worse and getting stiff. She went to her primary doctor on and had a x-ray performed that was negative for fractures. She is noting difficulty with washes dishes, sweeping, washing her hair, wiping herself with her right hand, and lifting dishes. She is right hand dominant. Reported Pain Level Pain Score 5: Self Report Assessment PT Clinical Summary Vanita Valladares presents with right shoulder pain following a fall on in early April 2023. She is having worsening pain and stiffness leading to difficulty reaching, pulling, and lifting. She has limitations with central office operator, bathing, grooming, and cooking. She objectively demonstrates tenderness at the right deltoid, teres minor, and posterior glenohumeral joint; decreased and painful right shoulder AROM; decreased right shoulder PROM; decreased right shoulder strength; and positive tests for impingement and adhesive capsulitis. She will benefit from skilled PT to address these limitations and improve her daily function. Plan of Care Interventions Electrical Stimulation,Hot Pack/Cold Pack,Manual Therapy,Neuro Re-education,Patient/Caregiver Educati,Therapeutic Activities,Therapeutic Exercise PT Services Indicated Yes Treatment Frequency and 2 times a week for 16 visits Duration These treatments will address the objective and functional deficits as defined above. The patient will be advanced safely and appropriately in order for the patient to progress towards his/her prior level of function. Additional exercises will be introduced and as well as a comprehensive home exercise program upon discharge, if needed, ?to ensure carryover of functional gains achieved in the clinic. This treatment plan has been reviewed and agreement upon by the patient.
--- NOTE | 2023-05-30 10:03 | OPREHPOC ---
Outpatient Therapy Plan of Care This is a Multidisciplinary Plan of Care that may contain components documented by all disciplines (PT, OT, and ST.) PT Problem 1 PT Problem #1 Knowledge Deficit PT Goal 1 Goal The patient will demonstrate independence in a home exercise program to continue after discharge from formal PT. Target Visit 16 PT Problem 2 PT Problem #2 Pain PT Goal 1 Goal The patient will report no greater than 3/10 right shoulder pain with return to previous level of activity. Target Visit 16 PT Problem 3 PT Problem #3 Impaired Range of Motion PT Goal 1 Goal The patient will demonstrate 130 degrees of right shoulder flexion and abduction AROM to improve overhead reaching ability. Target Visit 16 PT Problem 4 PT Problem #4 Impaired Strength PT Goal 1 Goal The patient will demonstrate 4-/5 or greater right shoulder strength in all planes to improve lifting ability. Target Visit 16 PT Problem 5 PT Problem #5 Impaired Functional Mobil PT Goal 1 Goal The patient will have 30% or less self perceived disability per the Quick DASH questionnaire. Target Visit 16
[2023-06-22 08:00] VITALS: BP_SYST 170
--- NOTE | 2023-06-22 09:08 | PTOPPROG ---
Assessment and note entered by Yanci Pascal, PT Evaluation Information Assessment Status Progress Diagnosis R shoulder pain Onset 05/02/23 Subjective Information Vanita Valladares reports her right shoulder is making progress but she still has pain and limitations. She notes she can move it more now and is able to wash her hair with her right arm but she does not lift items overhead with her right arm and she has weakness when attempting to open jars. She is unable to sleep on the right side due to pain and she is unable to don/doff a traditional bra due to inability to reach the clasp behind her back. Assessment PT Clinical Summary Vanita Valladares has completed 8 skilled PT visits for right shoulder pain. She is reporting improvements in right shoulder pain and mobility however, she is still have difficulty lifting household items with the right UE, reaching behind her back, and sleeping on the right side. She objectively demonstrates improved right shoulder active and passive ROM. She continues to have deficits in right shoulder AROM, PROM, strength, and posture as well as pain limiting her daily function. She will continue to benefit from skilled PT to further address these limitations and return her to her previous level of function. Plan of Care Interventions Electrical Stimulation,Hot Pack/Cold Pack,Manual Therapy,Neuro Re-education,Patient/Caregiver Educati,Therapeutic Activities,Therapeutic Exercise PT Services Indicated Yes Treatment Frequency and 2 times a week for 8 visits Duration These treatments will address the objective and functional deficits as defined above. The patient will be advanced safely and appropriately in order for the patient to progress towards his/her prior level of function. Additional exercises will be introduced and as well as a comprehensive home exercise program upon discharge, if needed, ?to ensure carryover of functional gains achieved in the clinic. This treatment plan has been reviewed and agreement upon by the patient.
--- NOTE | 2023-06-22 09:08 | OPREHPOC ---
Outpatient Therapy Plan of Care This is a Multidisciplinary Plan of Care that may contain components documented by all disciplines (PT, OT, and ST.) PT Problem 1 PT Problem #1 Knowledge Deficit PT Goal 1 Goal The patient will demonstrate independence in a home exercise program to continue after discharge from formal PT. Target Visit 16 Progress Partially Met Comment continue PT Problem 2 PT Problem #2 Pain PT Goal 1 Goal The patient will report no greater than 3/10 right shoulder pain with return to previous level of activity. Target Visit 16 Progress Not Met Comment continue PT Problem 3 PT Problem #3 Impaired Range of Motion PT Goal 1 Goal The patient will demonstrate 130 degrees of right shoulder flexion and abduction AROM to improve overhead reaching ability. Target Visit 16 Progress Met PT Goal 2 Goal The patient will demonstrate the ability to reach to 150 degrees into flexion while standing to improve overhead reaching. Target Visit 16 PT Problem 4 PT Problem #4 Impaired Strength PT Goal 1 Goal The patient will demonstrate 4-/5 or greater right shoulder strength in all planes to improve lifting ability. Target Visit 16 Progress Partially Met Comment continue PT Problem 5 PT Problem #5 Impaired Functional Mobil PT Goal 1 Goal The patient will have 30% or less self perceived disability per the Quick DASH questionnaire. Target Visit 16 Progress Not Met Comment continue OT Problem 1 OT Problem #1 Knowledge Deficit OT Goal 1 Goal The patient will demonstrate 100% knowledge of UE HEP to increase strength and decrease pain. Target Visit 10 OT Problem 2 OT Problem #2 Pain OT Goal 1 Goal The
--- NOTE | 2023-06-26 08:02 | BUOTOPEVAL ---
Assessment and note entered by Mary Harry, OT Evaluation Information Assessment Status Progress Diagnosis L hand pain Onset 4 months Subjective Information The patient stated that her thumb hurts the worse when she pulls laundry out of the dryer or does the dishes. Reported Pain Level Pain Score 4: Self Report Pain Score 8: Self Report Pain Score 4,7: Self Report Pain Score 3: Self Report Pain Score 7: Self Report Pain Score 4: Self Report Pain Score 6: Self Report Pain Score 8: Self Report Pain Score 5: Self Report Assessment OT Clinical Summary The patient is a 63 year old female who was referred to outpatient OT due to L hand pain following injury to thumb. 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 The patient now demonstrates moderately impaired recreational vehicle repairer/UE strength, severe pain at 10/10 and difficulty opening containers and lifting heavy objects for daily activities. The patient requires skilled OT to address these deficits and return to independence. Plan of Care Interventions Therapeutic Exercise,Manual Therapy,Neuro Re- education,Therapeutic Activities,Hot Pack/Cold Pack,Electrical Stimulation,Sensory Integrative Techn,Self-Care/Home Management,Prosthetic Training,Check Out for Orthotic/Pr,Ultrasound OT Services Indicated Yes Treatment Frequency and 2x/week for 10 visits. Duration These treatments will address the objective and functional deficits as defined above. The patient will be advanced safely and appropriately in order for the patient to progress towards his/her prior level of function. Additional exercises will be introduced and as well as a comprehensive home exercise program upon discharge, if needed, ?to ensure carryover of functional gains achieved in the clinic. This treatment plan has been reviewed and agreement upon by the patient.
[2023-07-13 08:30] VITALS: BP_SYST 170
--- NOTE | 2023-07-13 09:28 | OPREHPOC ---
Outpatient Therapy Plan of Care This is a Multidisciplinary Plan of Care that may contain components documented by all disciplines (PT, OT, and ST.) PT Problem 1 PT Problem #1 Knowledge Deficit PT Goal 1 Goal The patient will demonstrate independence in a home exercise program to continue after discharge from formal PT. Target Visit 16 Progress Met Comment . PT Problem 2 PT Problem #2 Pain PT Goal 1 Goal The patient will report no greater than 3/10 right shoulder pain with return to previous level of activity. Target Visit 16 Progress Not Met Comment . PT Problem 3 PT Problem #3 Impaired Range of Motion PT Goal 1 Goal The patient will demonstrate 130 degrees of right shoulder flexion and abduction AROM to improve overhead reaching ability. Target Visit 16 Progress Met PT Goal 2 Goal The patient will demonstrate the ability to reach to 150 degrees into flexion while standing to improve overhead reaching. Target Visit 16 Progress Met PT Problem 4 PT Problem #4 Impaired Strength PT Goal 1 Goal The patient will demonstrate 4+/5 or greater right shoulder strength in all planes to improve lifting ability. Target Visit 16 Progress Partially Met Comment . PT Problem 5 PT Problem #5 Impaired Functional Mobil PT Goal 1 Goal The patient will have 30% or less self perceived disability per the Quick DASH questionnaire. Target Visit 16 Progress Not Met Comment . OT Problem 1 OT Problem #1 Knowledge Deficit OT Goal 1 Goal The patient will demonstrate 100% knowledge of UE HEP to increase strength and decrease pain. Target Visit 10 OT Problem 2 OT Problem #2 Nya
--- NOTE | 2023-07-13 09:28 | PTOPPROG ---
Assessment and note entered by JT File, PT Evaluation Information Assessment Status Progress Diagnosis R shoulder pain Onset 05/02/23 Subjective Information patient reports she continues to have pain in the R shoulder. she reports the shoulder hurts all the time. she reports she has trouble with sleeping due to the pain in the R shoulder. she recently had an MRI and she reports it shows a full tear of the RTC in the R shoulder. she reports she has an evaluation with an ortho on monday of next week, and would like to hold therapy until she knows what they are going to do. Assessment PT Clinical Summary mrs. hooks presents to skilled PT for her 12th skilled therapy visit. she recently had an MRI of the R shoulder showing a full tear of the supraspinatus tendon. she would like to hold therapy until she has a chance to meet with the ortho. she will dollow up with him on monday of next week. she has made progress in shoulder rom and strength. due to her progression since starting therapy it is presumed patient will have injection to the R shoulder and return to therapy next week. however, we will hold until confirmation from her ortho. Plan of Care Interventions Electrical Stimulation,Hot Pack/Cold Pack,Manual Therapy,Neuro Re-education,Patient/Caregiver Educati,Therapeutic Activities,Therapeutic Exercise PT Services Indicated Yes Treatment Frequency and hold therapy for evaluation with ortho on monday. Duration plan to resume 2x weekly for 8 more visits following evaluation from ortho. These treatments will address the objective and functional deficits as defined above. The patient will be advanced safely and appropriately in order for the patient to progress towards his/her prior level of function. Additional exercises will be introduced and as well as a comprehensive home exercise program upon discharge, if needed, ?to ensure carryover of functional gains achieved in the clinic. This treatment plan has been reviewed and agreement upon by the patient.
--- NOTE | 2023-10-10 13:53 | PCPTNOTE ---
10/10/23: Pt was last seen for skilled PT on 07/13/23 when a reassessment was performed. She had right shoulder surgery and this case is discharged. -Yanci Pascal, PT
== END 2023-07-06 20:00 | disposition home or self-care (01) ==
LOC: CHSPT 10:07
PROVIDERS: PCP Family Medicine; Visit Provider Family Medicine
DX: M25.511 Pain in right shoulder (principal)
CPT/HCPCS: 97014; 97110; 97140; 97161; 97165; 97530; 97535; G0283

== ENCOUNTER 2023-07-08 06:48 | Outpatient (CLI) | payer MEDICARE, MEDICAID, SELFPAY ==
--- NOTE | ~2023-07-08 | MR_ITS ---
EXAMINATION: MR shoulder RT wo con DATE: 07/08/2023 08:26 INDICATION: Right shoulder pain post fall 2 months prior. TECHNIQUE: Magnetic resonance imaging (MRI) of the right shoulder was performed without intravenous c ontrast. Sequences included axial PD-weighted FS FSE, coronal oblique PD-weighted FS FSE, coronal obl ique T2-weighted FS FSE, sagittal PD-weighted FS FSE, and sagittal T1-weighted SE. COMPARISON: None. FINDINGS: Coracoacromial arch: The acromion undersurface is curved in morphology (type II). The coracoacromial ligament is normal. M oderate acromioclavicular osteoarthritis. Rotator cuff: Moderate 2 severe supraspinatus tendinopathy with small full-thickness tear along the superior facet footplate which measures 5 mm AP and 1 cm medial to lateral. Mild to moderate infraspinatus and mild subscapularis tendinopathy without tear. The teres minor tendon is normal. Normal rotator cuff muscle bulk and signal. Biceps tendon, glenoid labrum and glenohumeral cartilage: Long head of the biceps tendon is normal. Glenoid labrum is normal. Mild partial-thickness cartilage loss along the apex of the humeral head. Remaining cartilage appears relatively preserved. Fluid: Small glenohumeral joint effusion which extends through the full-thickness rotator cuff tear to commu nicate with additional small amount of fluid in the subacromial/subdeltoid bursa and the long head bi ceps tendon sheath. No loose osteochondral bodies. Bones: Normal marrow signal with no edema, fracture or abnormal marrow replacing process. IMPRESSION: 1. Small full-thickness tear of the distal supraspinatus tendon. 2. Mild right glenohumeral and moderate acromioclavicular osteoarthritis. Reviewed, dictated and finalized at location A.
== END 2023-07-08 06:49 | disposition home or self-care (01) ==
PROVIDERS: PCP Family Medicine; Visit Provider Family Medicine
DX: M25.511 Pain in right shoulder (principal); S46.811A Strain of other muscles, fascia and tendons at shoulder and upper arm level, right arm, initial encounter; M19.011 Primary osteoarthritis, right shoulder
CPT/HCPCS: 73221

== ENCOUNTER 2023-09-12 11:17 | Outpatient (CLI) | payer MEDICARE, MEDICAID, SELFPAY ==
--- NOTE | 2023-09-12 11:22 | ECG_ITS ---
Measurements Intervals [place] Rate: 66 P: 50 CO: 132 QRS: 63 QRSD: 103 T: 45 QT: 411 QTc: 433 Interpretive Statements SINUS RHYTHM NONSPECIFIC T-WAVE ABNORMALITY NO PREVIOUS ECG AVAILABLE FOR COMPARISON Electronically Signed On 09-12-2023 13:22:07 END WORKER by Polo Garcia M.D.
== END 2023-09-12 11:18 | disposition home or self-care (01) ==
LOC: CHSCARD 11:19
PROVIDERS: PCP Family Medicine; Visit Provider Anesthesiology
DX: Z01.810 Encounter for preprocedural cardiovascular examination (principal); I10 Essential (primary) hypertension; R94.31 Abnormal electrocardiogram [ECG] [EKG]
CPT/HCPCS: 93005

== ENCOUNTER 2023-09-13 00:26 | Day surgery (SDC) | payer MEDICARE, MEDICAID, SELFPAY ==
[2023-09-11 09:58] VITALS: BMI 29.8
--- NOTE | 2023-09-11 10:03 | PC.NURSE ---
Report to the Outpatient Waiting Room, entrance under the green pavilion located off [facility], at time 0600 on date 09/13/23. Planned Procedure Time: 0730. Time changes happen often and if your time is changed the preop area will call you the afternoon before. - You and your visitor will be asked to self-screen and do not enter if you have any COVID symptoms. - A mask is optional within the hospital at this time. Patients may have clear liquids (water, carbonated beverages, clear teas, apple juice) until 3 hours prior to surgery with a maximum of 20 ounces. - No food from midnight until time of surgery Take the following medications with a SIP of water the morning of surgery: DULOXETINE, METOPROLOL, INHALER IF NEEDED DO NOT STOP ANY OF YOUR OTHER PRESCRIPTION MEDICATIONS PRIOR TO SURGERY ?EXCEPT THE FOLLOWING Medications to discontinue per physician: N/A Date to take last dose: N/A Please no make-up, nail yakut, hairspray, perfume, deodorant, or body powder the day of surgery. No jewelry (including any body piercings) or valuables the day of surgery, leave them at home. Please take a shower or bath the night before, or the morning of, surgery with an antibacterial soap. Wear comfortable, loose fitting clothing. - Jewelry must be removed prior to entering the operating room. Rings and piercings that are not removed may be cut off. - The hospital will not accept responsibility for valuables. - Please leave all valuables, including medications, at home the day of surgery. If you are going home after surgery, a licensed driver utility worker must drive you home. - NO public transportation without another adult if you receive anesthesia. - We recommend that an adult stay with you for 24 hours following discharge. - We also recommend that you do not drive, make important decision, drink alcoholic beverages, or take any drugs that were not prescribed by your health care provider for at least 24 hours after your discharge time. Follow any additional instructions given to you from your surgeon. If you or anyone in your household have experienced Covid symptoms in the past week, please notify your surgeon or the nurse liaison at the phone number below for possible testing. Telephone instructions given to PT - JOAQUIN CONROY and asked if any additional questions and then verbalized understanding. Patient advised to call surgeon office or pre surgery nurse liaison [phone] if any additional questions.
[2023-09-13] VITALS (10 sets, daily range): BP systolic 110–135; BP diastolic 67–88; PULSE 61–91; RESP 16–23; TEMP 36.1–36.6; O2SAT 93–100
[2023-09-13] MEDS: CELECOXIB 200 MG CAPSULE PO (06:05)
[2023-09-13] MEDS: ACETAMINOPHEN 500 MG TABLET 1000 MG PO (06:05)
[2023-09-13] MEDS: LACTATED RINGERS 1,000 ML 30 ML IV CONT ×2 (06:25→09:35)
--- NOTE | 2023-09-13 07:05 | WPDANESEPPF ---
Anes - Initial Pre Proc Eval Procedure: Operation Date: 09/13/23 07:30 Proposed Procedures p Right Rotator Cuff Repair, Left Carpal Metacarpal Injection - Patricio Murray MD Date/Time: 09/13/23 07:05 Surgeon: Patricio Murray MD Pre Op Diagnosis: right rot cuff tear, left cmc djd Patient Data Age: 63 Gender: F Height: 1.68 m Weight: 88.1 kg Last Vital Signs Temp 36.6 C 09/13/23 06:13 Pulse 61 09/13/23 06:13 Resp 16 09/13/23 06:13 BP 124/68 09/13/23 06:13 Pulse Ox 100 09/13/23 06:13 O2 Del Method Room Air 09/13/23 06:13 Allergies Allergy/AdvReac Type Severity Reaction Status Date / Time codeine AdvReac Mild NAUSEA AND Verified 09/13/23 06:04 VOMITTING Sulfa (Sulfonamide AdvReac Mild Nausea Verified 09/13/23 06:04 Antibiotics) Home Medications Medication Instructions Recorded Confirmed Type albuterol sulfate 90 mcg/actuation 2 puff inhalation Q4-6H PRN 10/22/19 09/11/23 History aerosol inhaler Shortness Of Breath duloxetine 60 mg capsule,delayed 60 mg PO BID 10/22/19 09/11/23 History release metoprolol tartrate 25 mg tablet 25 mg PO BID 02/07/20 09/11/23 History omeprazole 40 mg capsule,delayed 40 mg PO DAILY 02/07/20 09/11/23 History release sumatriptan succinate 100 mg tablet 100 mg PO PRN PRN Headache 02/07/20 09/11/23 History chlorhexidine gluconate 4 % 1 applic topical DAILY #237 mL 08/25/23 09/11/23 Rx topical liquid (Hibiclens) clindamycin phosphate 1 % topical 1 applic topical DAILY #75 mL 08/25/23 09/11/23 Rx gel, once daily (Clindagel) Patient hx anesthesia problems: none Family hx anesthesia problems: none Results Review: All pre-operative results and documents have been reviewed as part of the pre-operative evaluation. [facility] Past Medical History Medical History Anxiety COPD (chronic obstructive pulmonary disease) (05/13/14) Depression (05/13/14) Fibromyalgia GERD (gastroesophageal reflux disease) (05/13/14) HTN (hypertension) Hyperlipidemia (06/09/14) Idiopathic peripheral autonomic neuropathy, unspecified (05/13/14) Surgical History Surgical History (Updated 09/13/23 @ 07:05 by Keith Lombardi MD) H/O breast biopsy Social History Social History Smoking status: Never smoker Alcohol intake: never Substance use: never Substance use type: does not use Living arrangements: alone Gender identity (if verbalized by the patient): Female Spiritual care concerns: No Anes - Eval Final PreProcedure Day of Procedure 09/13/23 07:05 Patient weight: obese Heart: regular rate and rhythm Lungs: clear to auscultation Airway: Mallampati scale class II Neurological: alert and oriented Last oral intake: >/= 8 hours ASA classification: III Emergent: no Anesthetic plan: proceed Anesthesia type and monitoring: general ETT and standard monitoring Results Review: All pre-operative results and documents have been reviewed as part of the pre-operative evaluation. Informed Consent: The patient's anesthetic plan and its attendant risks and benefits were discussed with the patient/family/POA. Questions were solicited and answers provided to the satisfaction of the patient/family/POA.
--- NOTE | 2023-09-13 07:16 | WPDHPUPDATE1 ---
History and Physical Update Update Date/Time: 09/13/23 07:16 History and Physical has been reviewed, including an updated exam of the patient. There are NO changes in the patient's condition. Risks, benefits, and alternatives have been discussed and questions answered. Patient agrees to proceed with procedure.
[2023-09-13] MEDS: ceFAZolin 2 GM/D5W 50 ML 2 GM/50 ML BAG IVPB (07:32)
--- NOTE | 2023-09-13 07:46 | WPDANESPNB ---
Anes - Peripheral Nerve Block Date/Time: 09/13/23 07:46 I have discussed with the patient/family/POA the placement of a peripheral nerve block for post-operative pain management, including associated risks, benefits, complications, and side effects. Alternative methods of post-operative analgesia were detailed. Questions were solicited and answers provided to the satisfaction of the patient/family/POA. Time-Out: A pre-procedural Time-Out was completed immediately before starting the procedure and confirmed: Patient Identification, Site, Procedure, Patient Position and the Availability of Requisite Equipment. Clinical Indications: Acute post-operative pain management requested by the operative surgeon. Nerve Block Insertion Note Anes-nerve block: interscalene right Patient position: supine Skin prep: chlorhexidine Needle: 22 gauge, stimulating, insulated echogenic needle. Needle length: 50 mm Technique: ultrasound Injectate: bupivacaine 0.5% with epi 5 mcg/ml (30) and dexamethasone (mg) (8) Observations: tolerated well Complications: none Procedure start time:: 719 Procedure end time:: 724
[2023-09-13] MEDS: methylPREDNISolone ACETATE 80 MG/ML VIAL IM (09:09)
[2023-09-13] MEDS: BUPivacaine HCL 0.5% PF 30 ML VIAL INFILTRATE (09:10)
--- NOTE | 2023-09-13 09:17 | W.PM.PROC2 ---
Procedure Note - Detailed Date of Procedure 09/13/23 Pre-op Diagnosis right rot cuff tear, left cmc djd Post-op Diagnosis Same Procedure Performed REPAIR RIGHT ROTATOR CUFF, LEFT 1ST [facility] INJECTION Surgeon Patricio Murray MD Anesthesia General Description of Procedure THE PATIENT WAS TAKEN TO THE OPERATING ROOM AND THEN INTUBATED AND PLACED IN THE BEACH CHAIR POSITION. THE RIGHT UPPER EXTREMITY WAS PREPPED AND DRAPED IN THE NORMAL STERILE FASHION. AN INCISION WAS MADE IN BETWEEN THE SANDY-LATERAL ACROMION AND THE AC JOINT. THE FASCIA WAS IDENTIFIED. NEXT A MINI OPEN INCISION WAS MADE THROUGH THE DELTOID MUSCLE EXPOSING THE SUBACROMIAL SPACE. A LIMITED ACROMIOPLASTY WAS PREFORMED. THE ROTATOR CUFF WAS IDENTIFIED. THERE WAS A FULL THICKNESS TEAR. IT MEASURED APPROXIMATELY 3 CM X 2 CM. THE BICEPS TENDON WAS STABLE AND INTACT. THE GREATER TUBEROSITY WAS DEBRIDED TO BLEEDING BONE. 3 ARTHREX 4.75 SUTURE ANCHORS WITH FIBER TAPE WERE PLACED IN TO GOOD BONE AND HAD VERY GOOD BITES. MATRASS TYPE REPAIRS WERE DONE TO THE ROTATOR CUFF AND THERE WAS GOOD APPROXIMATION TO THE GREATER TUBEROSITY. THE REPAIR WAS EXCELLENT. THERE WAS NO IMPINGEMENT ON THE REPAIR FROM THE ACROMION WITH RANGE OF MOTION. THE WOUND WAS IRRIGATED WITH COPIOUS AMOUNTS OF ANTIBIOTIC SOLUTION. THE DELTOID MUSCLE WAS REPAIRED WITH #2 FIBER WIRE AND 0 VICRYL SUTURE. THE SUBCUTANEOUS LAYER WAS APPROXIMATED WITH 2-0 VICRYL. THE SKIN WAS APPROXIMATED WITH 3-0 QUIL AND DERMABOND. STERILE DRESSING WAS APPLIED. NEXT THE LEFT 1ST CMC JOINT WAS IDENTIFIED AND PREPPED. 1 CC OF DEPO MEDROL 80 MG AND 1 CC OF MARCAINE 0.5% WAS INJECTED TO THE CMC JOINT. BANDAGE WAS PLACED. PATIENT WAS EXTUBATED. Estimated Blood Loss 20 Complications No immediate complications Condition Stable Disposition PACU
== END 2023-09-13 11:55 | disposition home or self-care (01) ==
PROVIDERS: PCP Family Medicine; Visit Provider Orthopaedic Surgery
PROC: (CPT 23420; principal; 2023-09-13 07:30)
DX: S46.011A Strain of muscle(s) and tendon(s) of the rotator cuff of right shoulder, initial encounter (principal); W22.09XA Striking against other stationary object, initial encounter; M18.12 Unilateral primary osteoarthritis of first carpometacarpal joint, left hand; G89.18 Other acute postprocedural pain; J44.9 Chronic obstructive pulmonary disease, unspecified; I10 Essential (primary) hypertension; E78.5 Hyperlipidemia, unspecified; K21.9 Gastro-esophageal reflux disease without esophagitis; G90.9 Disorder of the autonomic nervous system, unspecified; M79.7 Fibromyalgia; F41.9 Anxiety disorder, unspecified; F32.A Depression, unspecified; Z79.51 Long term (current) use of inhaled steroids; E66.9 Obesity, unspecified; Z68.31 Body mass index [BMI] 31.0-31.9, adult
CPT/HCPCS: 23410; 20600; 64415; A9270; C1713; J0330; J0690; J1040; J1100; J2250; J2405; J2704; J3010; J7120

== ENCOUNTER 2023-10-02 14:36 | Outpatient (RCR) | payer MEDICARE, MEDICAID, SELFPAY ==
[2023-10-02 14:52] VITALS: BP_SYST 121
--- NOTE | 2023-10-02 15:45 | OPREHPOC ---
Outpatient Therapy Plan of Care This is a Multidisciplinary Plan of Care that may contain components documented by all disciplines (PT, OT, and ST.) PT Problem 1 PT Problem #1 Knowledge Deficit PT Goal 1 Goal patient to demonstrate independence with HEP Target Visit 6 PT Problem 2 PT Problem #2 Pain PT Goal 1 Goal 1. Patient to report highest pain at 4/10 2. Patient to report ability to sleep with no disturbance due to R shoulder pain Target Visit 12 PT Problem 3 PT Problem #3 Impaired Range of Motion PT Goal 1 Goal 1. Patient to demonstrate 140 deg of active R shoulder flexion to reach into cabinets 2. Patient to demonstrate ability to reach to base of skull to return to doing her hair Target Visit 12 PT Problem 4 PT Problem #4 Impaired Strength PT Goal 1 Goal 1. Patient to demonstrate 4+/5 strength of the R shoulder to return to lifting for house hold tasks . 2. Patient to demonstrate ability to lift 3# overhead Target Visit 12 PT Problem 5 PT Problem #5 Impaired Functional Mobil PT Goal 1 Goal 1. Patient to improve QuickDash by 20% 2. Patient to report ability to dress with no assistance 3. Patient to return to house hold tasks at PLOF Target Visit 12
--- NOTE | 2023-10-02 15:45 | PTOPEVAL1 ---
Assessment and note entered by Debra Dinh DPT Evaluation Information Assessment Status Evaluation Diagnosis R shoulder pain Onset 09/13/23 Subjective Information Patient reports she has R RTC repair on 09/13/23. She reports she saw the MD on 09/26/23 and MD was happy with progress. She reports was instructed not to do any lifting. she reports difficulty with dressing, fixing her hair, sleeping and house hold tasks. She is not driving. She returns to MD in 2 month. She is passive ROM for 6 weeks. Reported Pain Level Pain Score 8: Self Report Assessment PT Clinical Summary Ms. Valladares is a 63 year old female who presents to PT with R shoulder pain s/p R RTC repair. Patient demonstrate decreased R shoulder AROM and PROM and decreased R shoulder strength impairing her ability to sleep, dress, fix her hair and complete house hold tasks. She would benefit from skilled PT to address impairments and return to PLOF. Plan of Care Interventions Electrical Stimulation,Hot Pack/Cold Pack,Manual Therapy,Neuro Re-education,Patient/Caregiver Educati,Therapeutic Activities,Therapeutic Exercise PT Services Indicated Yes Treatment Frequency and 2x weekly for 12 visits Duration These treatments will address the objective and functional deficits as defined above. The patient will be advanced safely and appropriately in order for the patient to progress towards his/her prior level of function. Additional exercises will be introduced and as well as a comprehensive home exercise program upon discharge, if needed, ?to ensure carryover of functional gains achieved in the clinic. This treatment plan has been reviewed and agreement upon by the patient.
--- NOTE | 2023-11-02 11:13 | OPREHPOC ---
Outpatient Therapy Plan of Care This is a Multidisciplinary Plan of Care that may contain components documented by all disciplines (PT, OT, and ST.) PT Problem 1 PT Problem #1 Knowledge Deficit PT Goal 1 Goal patient to demonstrate independence with HEP Target Visit 6 Progress Met PT Problem 2 PT Problem #2 Pain PT Goal 1 Goal 1. Patient to report highest pain at 4/10 2. Patient to report ability to sleep with no disturbance due to R shoulder pain Target Visit 18 Progress Not Met Comment continue PT Problem 3 PT Problem #3 Impaired Range of Motion PT Goal 1 Goal 1. Patient to demonstrate 140 deg of active R shoulder flexion to reach into cabinets 2. Patient to demonstrate ability to reach to base of skull to return to doing her hair Target Visit 18 Comment continue PT Problem 4 PT Problem #4 Impaired Strength PT Goal 1 Goal 1. Patient to demonstrate 4+/5 strength of the R shoulder to return to lifting for house hold tasks . 2. Patient to demonstrate ability to lift 3# overhead Target Visit 18 Comment continue PT Problem 5 PT Problem #5 Impaired Functional Mobil PT Goal 1 Goal 1. Patient to improve QuickDash by 20% 2. Patient to report ability to dress with no assistance 3. Patient to return to house hold tasks at PLOF Target Visit 18 Comment continue
--- NOTE | 2023-11-02 11:13 | PTOPPROG ---
Assessment and note entered by JT File, PT Evaluation Information Assessment Status Progress Diagnosis R shoulder pain Onset 09/13/23 Subjective Information patient reports she feels alright today. she reports mild pain in the R shoulder today. she reports she has noticed improvement in ROM of the R shoulder, but it is still weak. she reports she also has shaking in the R hand that started after surgery. Assessment PT Clinical Summary mrs. hooks presents to skilled PT for her 10th skilled therapy visit s/p R RTC repair. she is now just over 7 weeks out. she was is allowed to begin arom and strengthening as tolerated. she presents today with improved passive and active R shoulder rom. she was educated in aarom exercises of the R shoulder to further improve her rom and active lifting against gravity. she has met goal for HEP, and has made progress towards, but lacks achievement of all other goals. she would benefit from continued skilled PT to further progress rom, strength, and functional abilities to achieve all goals and return to her prior level functional activity performance/quality of life. Plan of Care Interventions Electrical Stimulation,Hot Pack/Cold Pack,Manual Therapy,Neuro Re-education,Patient/Caregiver Educati,Therapeutic Activities,Therapeutic Exercise PT Services Indicated Yes Treatment Frequency and continue skilled PT 2x weekly for 8 more visits Duration These treatments will address the objective and functional deficits as defined above. The patient will be advanced safely and appropriately in order for the patient to progress towards his/her prior level of function. Additional exercises will be introduced and as well as a comprehensive home exercise program upon discharge, if needed, ?to ensure carryover of functional gains achieved in the clinic. This treatment plan has been reviewed and agreement upon by the patient.
--- NOTE | 2023-11-30 15:16 | OPREHPOC ---
Outpatient Therapy Plan of Care This is a Multidisciplinary Plan of Care that may contain components documented by all disciplines (PT, OT, and ST.) PT Problem 1 PT Problem #1 Knowledge Deficit PT Goal 1 Goal patient to demonstrate independence with HEP Target Visit 6 Progress Met PT Problem 2 PT Problem #2 Pain PT Goal 1 Goal 1. Patient to report highest pain at 4/10 2. Patient to report ability to sleep with no disturbance due to R shoulder pain Target Visit 26 Progress Not Met Comment continue PT Problem 3 PT Problem #3 Impaired Range of Motion PT Goal 1 Goal 1. Patient to demonstrate 140 deg of active R shoulder flexion to reach into cabinets 2. Patient to demonstrate ability to reach to base of skull to return to doing her hair Target Visit 26 Comment continue PT Problem 4 PT Problem #4 Impaired Strength PT Goal 1 Goal 1. Patient to demonstrate 4+/5 strength of the R shoulder to return to lifting for house hold tasks . 2. Patient to demonstrate ability to lift 3# overhead Target Visit 26 Comment continue PT Problem 5 PT Problem #5 Impaired Functional Mobil PT Goal 1 Goal 1. Patient to improve QuickDash by 20% 2. Patient to report ability to dress with no assistance 3. Patient to return to house hold tasks at PLOF Target Visit 26 Comment continue
--- NOTE | 2023-11-30 15:16 | PTOPREEVAL ---
Assessment and note entered by Debra Lemos DPT Evaluation Information Assessment Status Re-evaluation Diagnosis R shoulder pain Onset 09/13/23 Subjective Information patient reports shoulder is improving and she is independent with HEP. she reports she still gets random bouts of pain that are signficant. she reports she is still having difficulty with any house hold chore that requires her to reach over head. she reports she has only driven 2 times. Reported Pain Level Pain Score 2: Self Report Assessment PT Clinical Summary ms. hooks presents to skilled PT for her 18th skilled therapy visit s/p R RTC repair. she demonstrates AROM of R shoulder flexion to 118deg, IR functional reach to the lower thoracic spine and ER functional reach to the base of the skull. she displays 3+/5 strength the R shoulder. she reports that she has been able to return to some house hold tasks but is having continued difficulty with any tasks that require her to reach over head including putting away dishes and folding laundry. she would benefit from continued skilled PT to address remaining impairments and return to PLOF. Plan of Care Interventions Electrical Stimulation,Hot Pack/Cold Pack,Manual Therapy,Neuro Re-education,Patient/Caregiver Educati,Therapeutic Activities,Therapeutic Exercise PT Services Indicated Yes Treatment Frequency and continue skilled PT 2x weekly for 8 more visits Duration These treatments will address the objective and functional deficits as defined above. The patient will be advanced safely and appropriately in order for the patient to progress towards his/her prior level of function. Additional exercises will be introduced and as well as a comprehensive home exercise program upon discharge, if needed, ?to ensure carryover of functional gains achieved in the clinic. This treatment plan has been reviewed and agreement upon by the patient.
== END 2023-12-28 09:07 | disposition still patient (30) ==
LOC: CHSPT 14:36
PROVIDERS: Visit Provider Orthopaedic Surgery
DX: M75.101 Unspecified rotator cuff tear or rupture of right shoulder, not specified as traumatic (principal); Z98.890 Other specified postprocedural states
CPT/HCPCS: 97014; 97110; 97150; 97161; G0283

== ENCOUNTER 2023-12-02 10:32 | Emergency (ER) | payer MEDICARE, MEDICAID, SELFPAY ==
[2023-12-02 10:32] VITALS: BP 115/84; PULSE 107; RESP 22; TEMP 38.1; O2SAT 97
[2023-12-02] MEDS: ACETAMINOPHEN 325 MG TABLET 650 MG PO (10:59)
[2023-12-02 11:18] LABS: SARS-CoV-2 RNA PCR Negative (Negative)
[2023-12-02 11:28] LABS: Influenza A QL RT-PCR Positive (Negative); Influenza B QL RT-PCR Negative (Negative); RSV RNA, RT-PCR Negative (Negative); Strep Group A RT-PCR NOT DETECTED (Negative)
--- NOTE | 2023-12-02 11:32 | ED.URI ---
HPI - URI/Sore Throat General Chief Complaint: Upper Respiratory Infection Stated Complaint: cough; fever Time Seen by Provider: 12/02/23 10:43 Source: patient Mode of arrival: ambulatory Limitations: no limitations History of Present Illness HPI Narrative: this is a 63-year-old female with a 2 day history of cough congestion body aches with some mild sore throat with fever up to 100.4 with some no shortness of breath no nausea vomiting no chest pain no abdominal pain. MD elicited complaint: fever, sore throat and nasal congestion Onset (ago): day(s) Related Data Home Medications Medication Instructions Recorded Confirmed albuterol sulfate 90 mcg/actuation 2 puff inhalation Q4-6H PRN 10/22/19 11/30/23 aerosol inhaler Shortness Of Breath duloxetine 60 mg capsule,delayed 60 mg PO BID 10/22/19 11/30/23 release metoprolol tartrate 25 mg tablet 25 mg PO BID 02/07/20 11/30/23 omeprazole 40 mg capsule,delayed 40 mg PO DAILY 02/07/20 11/30/23 release sumatriptan succinate 100 mg tablet 100 mg PO PRN PRN Headache 02/07/20 11/30/23 Allergies Allergy/AdvReac Type Severity Reaction Status Date / Time codeine AdvReac Mild NAUSEA AND Verified 09/26/23 09:07 VOMITTING Sulfa (Sulfonamide AdvReac Mild Nausea Verified 09/26/23 09:07 Antibiotics) Review of Systems Review of Systems: All systems reviewed & are unremarkable except as noted in HPI and below PMFSH Past Medical History Medical History Anxiety COPD (chronic obstructive pulmonary disease) (05/13/14) Depression (05/13/14) Fibromyalgia GERD (gastroesophageal reflux disease) (05/13/14) HTN (hypertension) Hyperlipidemia (06/09/14) Idiopathic peripheral autonomic neuropathy, unspecified (05/13/14) Surgical History Surgical History H/O breast biopsy Social History Social History Smoking status: Never smoker Alcohol intake: never Substance use: never Substance use type: does not use Living arrangements: alone Gender identity (if verbalized by the patient): Female Spiritual care concerns: No Exam Const: General: healthy appearing and no acute distress HENMT: Head: normal to inspection Chest: Chest palpation & inspection: normal inspection of the chest Resp: Effort & Inspection: normal respiratory effort Auscultation: clear to auscultation bilaterally Cardio: Rate: regular rate GI: GI Palp: Yes Soft to palpation Skin: General skin exam: normal color Rashes: no rashes Course Course Emergency Course: Patient had testing performed want COVID was negative as well as RSV, strep was negative, patient was positive for influenza and will send a prescription to the patient's pharmacy and patient did receive a dose of Tylenol. Vital Signs Vital signs: Vital Signs Temperature 38.1 C H 12/02/23 10:32 Pulse Rate 107 H 12/02/23 10:32 Respiratory Rate 22 H 12/02/23 10:32 Blood Pressure 115/84 12/02/23 10:32 Pulse Oximetry 97 12/02/23 10:32 Oxygen Delivery Room Air 12/02/23 10:32 Temperature 38.1 C H 12/02/23 10:32 Pulse Rate 107 H 12/02/23 10:32 Respiratory Rate 22 H 12/02/23 10:32 Blood Pressure 115/84 12/02/23 10:32 Pulse Oximetry 97 12/02/23 10:32 Oxygen Delivery Room Air 12/02/23 10:35 MDM - URI/Sore Throat Lab Data Labs: Lab Results 12/02/23 Range/Units 10:43 Influenza A (RT-PCR) Positive A (Negative) Influenza B (RT-PCR) Negative (Negative) RSV (RT-PCR) Negative (Negative) SARS-CoV-2 RNA (RT-PCR) Negative (Negative) Group A Strep (PCR) Not detected (Negative) Critical Care Time Critical Care Time Critical Care Time: No Discharge Plan Discharge Clinical Impression: Influenza Patient Disposition: Home, Self-Care Condition: Stable Instructions: Antibiotic For
[2023-12-02 11:45] VITALS: BP 107/78; PULSE 98; RESP 18; TEMP 37.4; O2SAT 94
== END 2023-12-02 11:45 | disposition home or self-care (01) ==
PROVIDERS: Emergency Provider Emergency Medicine; PCP Family Medicine
DX: J10.1 Influenza due to other identified influenza virus with other respiratory manifestations (principal); F41.9 Anxiety disorder, unspecified; F32.A Depression, unspecified; I10 Essential (primary) hypertension; E78.5 Hyperlipidemia, unspecified; J44.9 Chronic obstructive pulmonary disease, unspecified; Z79.899 Other long term (current) drug therapy; Z20.822 Contact with and (suspected) exposure to COVID-19
CPT/HCPCS: 87637; 87651; 99283; A9270

== ENCOUNTER 2024-01-02 09:09 | Outpatient (RCR) | payer MEDICARE, MEDICAID, SELFPAY ==
[2024-01-02 09:07] VITALS: BP_SYST 121
--- NOTE | 2024-01-02 10:25 | OPREHPOC ---
Outpatient Therapy Plan of Care This is a Multidisciplinary Plan of Care that may contain components documented by all disciplines (PT, OT, and ST.) PT Problem 1 PT Problem #1 Knowledge Deficit PT Goal 1 Goal patient to demonstrate independence with HEP Target Visit 6 Progress Met PT Problem 2 PT Problem #2 Pain PT Goal 1 Goal 1. Patient to report highest pain at 4/10 2. Patient to report ability to sleep with no disturbance due to R shoulder pain Target Visit 34 Progress Not Met Comment continue Comment continue PT Problem 3 PT Problem #3 Impaired Range of Motion PT Goal 1 Goal 1. Patient to demonstrate 140 deg of active R shoulder flexion to reach into cabinets 2. Patient to demonstrate ability to reach to base of skull to return to doing her hair Target Visit 34 Comment continue Comment continue PT Problem 4 PT Problem #4 Impaired Strength PT Goal 1 Goal 1. Patient to demonstrate 4+/5 strength of the R shoulder to return to lifting for house hold tasks . 2. Patient to demonstrate ability to lift 3# overhead Target Visit 34 Comment continue Comment continue PT Problem 5 PT Problem #5 Impaired Functional Mobil PT Goal 1 Goal 1. Patient to improve QuickDash by 20% 2. Patient to report ability to dress with no assistance 3. Patient to return to house hold tasks at PLOF Target Visit 34 Comment continue Comment continue
--- NOTE | 2024-01-02 10:25 | PTOPREEVAL ---
Assessment and note entered by Debra Lemos DPT Evaluation Information Assessment Status Re-evaluation Diagnosis R shoulder pain Onset 09/13/23 Subjective Information she reports pain is only an issue in the evening. she reports she has been able to lift a 1/2 gallon into the refrigerator but has dropped the 1 gallon. she reports she is doing her HEP at home. she reports she is able to complete house hold tasks but has difficulty with over head reaching. Reported Pain Level Pain Score 3: Self Report Pain Score 3: Self Report Assessment PT Clinical Summary Ms. Valladares has been seen for 26 visits of skilled PT for R shoulder pain and weakness following R RTC repair. She is progressing well at this time. She demonstrates 110 deg of R shoulder flexion and improving strength at this time. She has been able to complete most house hold tasks at this time but continues to have difficulty with reaching over head. She would benefit from continued skilled PT to address remaining impairments and return to PLOF. Plan of Care Interventions Therapeutic Exercise,Patient/Caregiver Educati, Manual Therapy,Neuro Re-education,Therapeutic Activities,Hot Pack/Cold Pack,Electrical Stimulation PT Services Indicated Yes Treatment Frequency and continue skilled PT 2x weekly for 8 more visits Duration These treatments will address the objective and functional deficits as defined above. The patient will be advanced safely and appropriately in order for the patient to progress towards his/her prior level of function. Additional exercises will be introduced and as well as a comprehensive home exercise program upon discharge, if needed, ?to ensure carryover of functional gains achieved in the clinic. This treatment plan has been reviewed and agreement upon by the patient.
--- NOTE | 2024-02-01 11:08 | OPREHPOC ---
Outpatient Therapy Plan of Care This is a Multidisciplinary Plan of Care that may contain components documented by all disciplines (PT, OT, and ST.) PT Problem 1 PT Problem #1 Knowledge Deficit PT Goal 1 Goal patient to demonstrate independence with HEP Target Visit 6 Progress Met PT Problem 2 PT Problem #2 Pain PT Goal 1 Goal 1. Patient to report highest pain at 4/10. met 2. Patient to report ability to sleep with no disturbance due to R shoulder pain. met Target Visit 34 Progress Met Comment . PT Problem 3 PT Problem #3 Impaired Range of Motion PT Goal 1 Goal 1. Patient to demonstrate 140 deg of active R shoulder flexion to reach into cabinets 2. Patient to demonstrate ability to reach to base of skull to return to doing her hair Target Visit 34 Comment continue PT Problem 4 PT Problem #4 Impaired Strength PT Goal 1 Goal 1. Patient to demonstrate 4+/5 strength of the R shoulder to return to lifting for house hold tasks . 2. Patient to demonstrate ability to lift 3# overhead Target Visit 34 Comment continue PT Problem 5 PT Problem #5 Impaired Functional Mobil PT Goal 1 Goal 1. Patient to improve QuickDash by 20% 2. Patient to report ability to dress with no assistance 3. Patient to return to house hold tasks at PLOF Target Visit 34 Comment continue
--- NOTE | 2024-02-01 11:09 | PTOPREEVAL ---
Assessment and note entered by JT File, PT Evaluation Information Assessment Status Re-evaluation Diagnosis R shoulder pain Onset 09/13/23 Subjective Information patient reports she has been away from PT for a few weeks due to having eye surgery. she reports the surgery has had complications, and she is struggling with her eye sight now. she reports she is now able to continue skilled PT and focus on the the rehab of her R shoulder. she reports she still has weakness in the R arm. she reports she has been using a 1lb and 3lb weight for exercises at home. she reports she still has trouble lifting a gallon of milk into the refrigerator. she reports she also has a green exercise band at home for HEP Reported Pain Level Pain Score 0: Self Report Additional Pain Score Comments pain has been no more than 2/10 at worst in over a week. Assessment PT Clinical Summary mrs. hooks presents to skilled PT after being gone for a few weeks due to having an eye surgery. she now returns to continue skilled PT to improve her R shoulder strength and functional activity performance. she no longer has pain in the R shoulder, but is limited in functional lifting ability and strength of the R shoulder. she continues to have unmet goals in these areas. patient would benefit from continued skilled PT to improve her remaining objective/functional deficits to achieve her remaining goals for skilled PT, and return to all activities without limitations. Plan of Care Interventions Therapeutic Exercise,Patient/Caregiver Educati, Manual Therapy,Neuro Re-education,Therapeutic Activities,Hot Pack/Cold Pack,Electrical Stimulation PT Services Indicated Yes Treatment Frequency and continue skilled PT 2x weekly for 5 remaining Duration visits from her last re-evaluation. These treatments will address the objective and functional deficits as defined above. The patient will be advanced safely and appropriately in order for the patient to progress towards his/her prior level of function. Additional exercises will be introduced and as well as a comprehensive home exercise program upon discharge, if needed, ?to ensure carryover of functional gains achieved in the clinic. This treatment plan has been reviewed and agreement upon by the patient.
== END 2024-02-21 20:00 | disposition home or self-care (01) ==
LOC: CHSPT 09:09
PROVIDERS: Visit Provider Orthopaedic Surgery
DX: M75.101 Unspecified rotator cuff tear or rupture of right shoulder, not specified as traumatic (principal); Z98.890 Other specified postprocedural states
CPT/HCPCS: 97110; 97140; 97530

== ENCOUNTER 2024-05-08 12:12 | Outpatient (CLI) | payer MEDICARE, MEDICAID, SELFPAY ==
--- NOTE | ~2024-05-08 | MM_ITS ---
EXAMINATION: MM screening [facility] BI w kim HISTORY: Screening TECHNIQUE: Craniocaudal and mediolateral oblique 3-D tomosynthesis images were obtained and synthetic 2-D images were generated. CAD analysis was submitted and interpreted. COMPARISON: Comparison to multiple prior studies sequentially, with oldest reviewed study dated 12/18. BREAST PARENCHYMAL COMPOSITION: There are scattered areas of fibroglandular density. FINDINGS: There is no evidence of suspicious mass, calcification, or architectural distortion to sugg est malignancy in either breast. There has been no suspicious interval change. IMPRESSION: 1. No mammographic evidence of malignancy. 2. Recommend routine screening mammography in one year. BI-RADS Category 1: Negative Reviewed, dictated and finalized at location B.
--- NOTE | ~2024-05-08 | DEXA_ITS ---
Bone Density Report Name: MO CONROY Age: 64 Sex: Female Ethnicity: White Date of : 1960 Indication: postmenopausal; screening for osteoporosis; Referring Provider: Jaylon Garnett Study: Bone densitometry was performed. Exam Date: May 08, 2024 Accession number: [id number] Bone Density: Region BMD T-score Z-score Classification AP Spine(L1-L4) 1.052 0.0 1.8 Normal Femoral Neck (Left) 0.838 -0.1 1.4 Normal Total Hip (Left) 0.910 -0.3 0.9 Normal Femoral Neck (Right) 0.813 -0.3 1.1 Normal Total Hip (Right) 0.856 -0.7 0.5 Normal Femoral Neck Mean 0.825 -0.2 1.3 Normal Total Hip Mean 0.883 -0.5 0.7 Normal World Health Organization criteria for BMD impression classify patients as: Normal (T-score at or above -1.0), Osteopenia (T-score between -1.0 and -2.5), or Osteoporosis (T-score at or below -2.5). 10-year Fracture Risk: FRAX not reported because: All T-scores for Spine Total, Hip Total, Femoral Neck at or above -1.0 Previous Exams: Region Exam Age BMD T-score BMD Change BMD Change Date g/cm2 vs Baseline vs Previous AP Spine (L1-L4) 05/08/2024 64 1.052 0.0 -0.022 (-2.0%) -0.022 (-2.0%) 03/26/2020 60 1.073 0.2 Total Hip(Left) 05/08/2024 64 0.910 -0.3 -0.124 (-12.0% -0.124 (-12.0% 03/26/2020 60 1.034 0.8 Total Hip(Right) 05/08/2024 64 0.856 -0.7 -0.034 (-3.8%) -0.034 (-3.8%) 03/26/2020 60 0.890 -0.4 *Denotes significance at 95% confidence level, LSC for AP Spine = 0.022 g/cm2, LSC for Total Hip = 0.027 g/cm2 # Denotes dissimilar scan types or analysis methods Clinical Information Provided by Patient: Patient maximum height was 66 Menopause Age: 45 No regular weight bearing exercise Onset of menses at age 16 Number of children 2 Impression: The patient has normal bone mass. No significant bone loss was observed. Discussion: BONE DENSITY IS ABOVE THE MINIMUM DESIRABLE LEVEL AT ALL SKELETAL SITES TESTED. This patient?s bone mineral density is above the minimum desirable level (T-score -1.0 or better) at all sites measured. The patient should follow a healthful lifestyle (good nutrition with adequate calcium and vitamin D, and appropriate weight-bearing exercise). Follow-Up: Consider repeating this study in 5 years or sooner if there is some new clinical indication. Reported by: Dr. Leighton Child on 05/08/2024 12:44:00 PM.
== END 2024-05-08 12:13 | disposition home or self-care (01) ==
LOC: CHSIMG 12:13
PROVIDERS: PCP Family Medicine; Visit Provider Family Medicine
DX: Z12.31 Encounter for screening mammogram for malignant neoplasm of breast (principal); Z78.0 Asymptomatic menopausal state
CPT/HCPCS: 77063; 77067; 77080

== ENCOUNTER 2024-08-05 15:05 | Emergency (ER) | payer MEDICAID, MEDICARE, SELFPAY ==
[2024-08-05] VITALS (8 sets, daily range): BP systolic 134–149; BP diastolic 81–95; PULSE 73–90; RESP 15–24; TEMP 36.3; O2SAT 95–100
--- NOTE | ~2024-08-05 | CT_ITS ---
EXAMINATION: CT brain wo con DATE: 08/05/2024 15:32 INDICATION: Headache. TECHNIQUE: Computed tomography (CT) of the head was performed without intravenous contrast. The mA wa s adjusted according to patient size. Iterative reconstruction technique was employed. The dose-lengt h product was 681.00 mGy-cm. COMPARISON: Head CT 02/07/2020 FINDINGS: There is no intracranial hemorrhage, acute infarction, or abnormal intracranial mass lesion . The ventricles are normal in size. The paranasal sinuses are clear. There are likely changes of ocu lar lens replacement surgeries. There is anteroposterior elongation of the ocular globes. The mastoid air cells are normal. IMPRESSION: 1. Normal brain. Reviewed, dictated and finalized at location A. MATIC LOG CUT OFF SAWYER IMPRESSION: 1. Normal brain.
--- NOTE | 2024-08-05 15:15 | ED_ITS ---
HPI - Headache General Chief Complaint: Headache Stated Complaint: MIGRAINE Time Seen by Provider: 08/05/24 15:08 History of Present Illness HPI Narrative: Pt presents with gradual onset ZARCO starting 3 days ago and getting progressively worse. Pt says it feels like her typical migraines but has some differences. It is worse than usual and she has the shakes which she attributes to the pain. Pt was sent over from PCP office for evaluation and CT. Pt is nauseated but not vomiting. Pt denies fever or neck pain or one sided weakness or dizziness or visual changes other than the photophobia associated with the ZARCO. Related Data Home Medications Medication Instructions Recorded Confirmed duloxetine 60 mg capsule,delayed 60 mg PO BID 10/22/19 08/05/24 release metoprolol tartrate 25 mg tablet 25 mg PO BID 02/07/20 08/05/24 omeprazole 40 mg capsule,delayed 40 mg PO DAILY 02/07/20 08/05/24 release sumatriptan succinate 100 mg tablet 100 mg PO PRN PRN Headache 02/07/20 08/05/24 lisinopril 10 mg tablet 10 mg PO DAILY 08/05/24 08/05/24 nortriptyline 25 mg capsule 25 mg PO DAILY 08/05/24 08/05/24 Allergies Allergy/AdvReac Type Severity Reaction Status Date / Time codeine AdvReac Mild NAUSEA AND Verified 08/05/24 15:08 VOMITTING Sulfa (Sulfonamide AdvReac Mild Nausea Verified 08/05/24 15:08 Antibiotics) Review of Systems Review of Systems: All systems reviewed & are unremarkable except as noted in HPI and below Neurologic: Reports headache(s) PMFSH Past Medical History Medical History Anxiety COPD (chronic obstructive pulmonary disease) (05/13/14) Depression (05/13/14) Fibromyalgia GERD (gastroesophageal reflux disease) (05/13/14) HTN (hypertension) Hyperlipidemia (06/09/14) Idiopathic peripheral autonomic neuropathy, unspecified (05/13/14) Surgical History Surgical History H/O breast biopsy Social History Social History Smoking status: Never smoker Alcohol intake: never Substance use: never Substance use type: does not use Living arrangements: alone Gender identity (if verbalized by the patient): Female Spiritual care concerns: No Exam Const: General: healthy appearing and no acute distress Nutritional Appearance: well nourished Orientation/consciousness: patient oriented x3 Limitations: no limitations HENMT: Head: normal to inspection Face and sinus: normal facial exam Eyes: Conjunctivae: conjunctivae normal Pupils: Equal, round and reactive p upils present EOM: EOMs intact bilaterally Direct Ophthalmoscopy: photophobia Neck: Neck: normal visual inspection, no lymphadenopathy and no meningeal signs Resp: Effort & Inspection: normal respiratory effort Auscultation: clear to auscultation bilaterally Cardio: Rate: regular rate GI: GI Palp: Yes Soft to palpation and No Tenderness to palpation present (GI) Auscultation: normal bowel sounds Skin: General skin exam: normal color Rashes: no rashes Wounds: no wo unds Neuro: General: patient oriented x3, moves all extremities, no meningeal signs, no focal motor deficits and CN's II-XI intact bilaterally Cranial nerves: Yes Nystagmus not present Speech: normal speech Extrem: General: normal to inspection and no clubbing, cyanosis or edema Psych: Mental Status: mental status grossly normal Affect: Anxious affect present Course Vital Signs Vital signs: Vital Signs Oxygen Delivery Room Air 08/05/24 15:05 Temperature 97.3 F L 08/05/24 15:13 Pulse Rate 90 08/05/24 15:53 Respiratory Rate 24 H 08/05/24 15:13 Blood Pressure 147/85 H 08/05/24 15:13 Pulse Oximetry 98 08/05/24 15:13 Oxygen Delivery Room Air 08/05/24 15:13 MDM - Headache MDM Narrative Medical decision making narrative: Pt sent from PCP office with migraine ZARCO for [address] head and give IV fluids and meds for ZARCO. CT fine. bigeminy noted on monitor, ekg confirms bi geminy rate [address] changes or t wave changes. will give kcl for slight low k of 3.3. Pt converted out of bigeminy. Pt feels much better after meds. wants to go home and sleep it off. Differential Diagnosis Differential diagnosis: Likely migraine, tension headache, subarachnoid hemorrhage and headache (partial DDx) Lab Data 08/05/24 15:42 08/05/24 15:42 Labs: Lab Results 08/05/24 Range/Units 15:42 WBC 13.0 H (4.8-10.8) K/mm3 RBC 4.95 (4.20-5.40) M/mm3 Hgb 14.6 (12.0-15.0) g/dL Hct 42.3 (35.0-49.0) % MCV 85.5 (78.0-102.0) fL MCH 29.5 (27.0-31.0) pg MCHC 34.5 (32-36) g/dL RDW 13.2 (11.6-14.4) % Plt Count 385 (150-420) K/mm3 MPV 9.1 L (9.2-11.8) fl Immature Gran % (Auto) 0.3 H (0.0-0.0) % Neut % (Auto) 55.3 (50.0-70.0) % Lymph % (Auto) 36.2 (18.0-42.0) % Mills % (Auto) 6.2 (2.0-11.0) % Eos % (Auto) 1.2 (1.0-6.0) % Baso % (Auto) 0.8 (0.0-1.0) % Lymph # (Auto) 4.70 H (1.10-4.50) K/mm3 Mills # (Auto) 0.81 (0.10-0.90) K/mm3 Eos # (Auto) 0.15 (0.02-0.50) K/mm3 Baso # (Auto) 0.11 H (0.00-0.10) K/mm3 Abs Immat Gran (auto) 0.04 H (0.00-0.00) K/mm3 Absolute Neuts (auto) 7.17 (1.70-7.20) K/mm3 Absolute Nucleated RBC 0.00 (0.00-0.00) K/mm3 Nucleated RBC % 0.0 (0-0.0) % PT 10.3 (9.50-12.1) Seconds INR 0.9 APTT 25.5 (23.9-30.70) Sec Sodium 142 (136-145) mmol/L Potassium 3.3 L (3.5-5.1) mmol/L Chloride 103 (98-108) mmol/L Carbon Dioxide 24 (21-32) mmol/L Anion Gap 15 H (4-12) mmol/L BUN 15 (7-18) mg/dL Creatinine 1.03 H (0.55-1.02) mg/dL Estim Creat Clear Calc 53 ml/min Estimated GFR 54 L (59 - ) Glucose 101 H (70-99) mg/dL Calculated Osmolality 294 (285-295) mOsm/kg Calcium 9.9 (8.5-10.1) mg/dL Total Bilirubin 0.7 (0.00-1.00) mg/dL AST 22 (15-37) U/L ALT 26 (14-59) U/L Alkaline Phosphatase 148 H (46-116) U/L Total Protein 8.1 (6.4-8.2) g/dL Albumin 3.9 (3.4-5.0) g/dL Discharge Plan Discharge Clinical Impression: Migraine Patient Disposition: Home, Self-Care Condition: Improved Instructions: Antibiotic Form, Migraine Headache (ED) Prescriptions: No Action duloxetine 60 mg capsule,delayed release(DR/EC) 60 mg PO BID sumatriptan succinate 100 mg tablet 100 mg PO PRN PRN (Reason: Headache) omeprazole 40 mg capsule,delayed release(DR/EC) 40 mg PO DAILY metoprolol tartrate 25 mg tablet 25 mg PO BID nortriptyline 25 mg capsule 25 mg PO DAILY lisinopril 10 mg tablet 10 mg PO DAILY Follow-up/Referrals: Jaylon Garnett MD [Primary Care Provider] -
[2024-08-05] MEDS: PROCHLORPERAZINE EDISYLATE 10 MG/2 ML VIAL IV PUSH (15:35)
[2024-08-05] MEDS: methylPREDNISolone SOD SUCC 125 MG VIAL IV PUSH (15:36)
[2024-08-05] MEDS: diphenhydrAMINE HCl INJ 50 MG/ML VIAL IV PUSH (15:37)
[2024-08-05] MEDS: HYDROmorphone HCL INJ (*CRX) 2 MG/ML VIAL 0.5 MG IV PUSH (15:38)
[2024-08-05] MEDS: SODIUM CHLORIDE 0.9% IV 1,000 ML 999 ML IV CONT (15:39)
[2024-08-05 15:46] LABS: Basophils Absolute Auto 0.11 K/mm3 (0.00-0.10); Basophils Percent Auto 0.8 % (0.0-1.0); Eosinophils Absolute Auto 0.15 K/mm3 (0.02-0.50); Eosinophils Percent Auto 1.2 % (1.0-6.0); Hematocrit 42.3 % (35.0-49.0); Hemoglobin 14.6 g/dL (12.0-15.0); Immature Granulocyte Absolute 0.04 K/mm3 (0.00-0.00); Immature Granulocyte Percent A 0.3 % (0.0-0.0); Lymphocytes Percent Auto 36.2 % (18.0-42.0); Mean Corpuscular HGB Conc 34.5 g/dL (32-36); Mean Corpuscular Hemoglobin 29.5 pg (27.0-31.0); Mean Corpuscular Volume 85.5 fL (78.0-102.0); Mean Platelet Volume 9.1 fl (9.2-11.8); Monocytes Absolute Auto 0.81 K/mm3 (0.10-0.90); Monocytes Percent Auto 6.2 % (2.0-11.0); Neutrophils Absolute Auto 7.17 K/mm3 (1.70-7.20); Neutrophils Percent Auto 55.3 % (50.0-70.0); Platelet Count Result 385 K/mm3 (150-420); Red Blood Count 4.95 M/mm3 (4.20-5.40); Red Cell Distribution Width 13.2 % (11.6-14.4)
--- NOTE | 2024-08-05 15:53 | ECG_ITS ---
Test Date: 2024-08-05 16:02:01 Measurements Intervals Leroy Rate: 82 P: 52 LA: 151 QRS: 43 QRSD: 92 T: 32 QT: 352 QTc: 413 Interpretive Statements SINUS RHYTHM WITH FREQUENT VENTRICULAR PREMATURE COMPLEXES IN A BIGEMINAL PATTERN MINIMAL Q WAVES- HIGH LATERAL LEADS NONSPECIFIC ST & T-WAVE ABNORMALITY- DIFFUSE LEADS BASELINE ARTIFACT- AVR ABNORMAL ECG No previous ECG available for comparison Electronically Signed On 08-05-2024 18:23:23 MANAGER ENROLLMENT by Durga Preston D.O.
--- NOTE | 2024-08-05 15:57 | PC.NURSE ---
PT IS RESTING ON STRETCHER WITH WARM BLANKET, IVF INFUSING ORDERED WITHOUT DIFFICULTY. SPOKE WITH [facility] WHO IS TO BE NOTIFIED FOR TRANSPORT HOME, IF PT IS DISCHARGED. PT DENIES ANY NEEDS OR COMPLAINTS. WILL CONTINUE TO MONITOR. LIGHTS ARE OFF.
[2024-08-05 16:00] LABS: INR 0.9; Partial Thromboplastin Time 25.5 Sec (23.9-30.70); Prothrombin Time 10.3 Seconds (9.50-12.1)
[2024-08-05 16:05] LABS: Alanine Aminotransferase 26 U/L (14-59); Albumin Level 3.9 g/dL (3.4-5.0); Alkaline Phosphatase 148 U/L (46-116); Anion Gap 15 mmol/L (4-12); Aspartate Amino Transferase 22 U/L (15-37); Bilirubin,Total 0.7 mg/dL (0.00-1.00); Blood Urea Nitrogen 15 mg/dL (7-18); Calcium 9.9 mg/dL (8.5-10.1); Carbon Dioxide 24 mmol/L (21-32); Chloride 103 mmol/L (98-108); Estimated CRCL calculation 53 ml/min; Estimated Glomerular Filt Rate 54; Glucose 101 mg/dL (70-99); Osmolality Calculated 294 mOsm/kg (285-295); Potassium 3.3 mmol/L (3.5-5.1); Sodium 142 mmol/L (136-145); Total Protein 8.1 g/dL (6.4-8.2)
[2024-08-05] MEDS: POTASSIUM CHLORIDE 20 MEQ ER TABLET PO (16:22)
--- NOTE | 2024-08-05 16:30 | PC.NURSE ---
PT IS SLEEPING WITHOUT DISTRESS. WAKES TO VERBAL STIMULI. PT REPORTS PAIN HAS IMPROVED AND SHE IS READY TO GO HOME. SHE CALLS [facility] TO TRANSPORT. PT DENIES ANY NEEDS OR COMPLAINTS.
== END 2024-08-05 16:55 | disposition home or self-care (01) ==
PROVIDERS: Emergency Provider Emergency Medicine; PCP Family Medicine
DX: G43.909 Migraine, unspecified, not intractable, without status migrainosus (principal); I10 Essential (primary) hypertension; E78.5 Hyperlipidemia, unspecified; J44.9 Chronic obstructive pulmonary disease, unspecified; Z79.899 Other long term (current) drug therapy
CPT/HCPCS: 36415; 70450; 80053; 85025; 85610; 85730; 93005; 96361; 96374; 96375; 99284; A9270; J0780; J1171; J1200; J2919; J7030

== ENCOUNTER 2025-01-17 09:59 | Outpatient (CLI) | payer MEDICARE, MEDICAID, SELFPAY ==
--- NOTE | ~2025-01-17 | XR_ITS ---
Clinical Indication: Chest pain, cough PA and lateral views of the chest: Comparison: 12/05/2022 Findings: The lungs are clear, without evidence of focal consolidation or pleural effusion. Cardiome diastinal silhouette is within normal limits. Bones and soft tissues are unremarkable. Impression: Normal chest. Reviewed, dictated and finalized at location . Impression: Normal chest.
--- OUTSIDE RECORDS SUMMARY | 2025-01-17 10:16 | XMS_ITS | Clinical Summary ---
Author Organization [facility] Address [address] [place] [address] Phone Care Team Providers Care Roller Leveler Name Role Phone NO FELIX, GARY Primary Care Provider [phone] Reason for Visit and Chief Complaint The Chief Complaint is: Referred by Dr. Pleitez. ~Right shoulder and arm Problems Includes: Problems addressed during this encounter and other active Problems Current Visit Onset Date Resolved Date Provider Helen n Status Chronic Obstructive Pulmonary Disease Unknown EDITH Sequeira [place] [employer]URING SHIFT SUPERVISOR-FPA, ENGINE OILER-BC Active Last Documented On 2 11:11AM ; [facility] Hyperlipidemia Unknown EDITH Sequeira [place] [employer] SHIFT SUPERVISOR-F PA, ENGINE OILER-BC Active Last Documented On 2 11:10AM ; [facility] Essential Hypertension Unknown EDITH Sequeira [place] MANUFACTURING SHIFT SUPERVISOR-FPA, ENGINE OILER-BC Active Last Documented On 2 11:10AM ; [facility] Myalgia and Myositis Unknown EDITH Sequeira [place] MANUFA[employer]URING SHIFT SUPERVISOR-FPA, ENGINE OILER-BC Active Last Documented On 2 11:11AM ; [facility] Plan of Treatment Education and Decision Aids were provided during visit for: Lifestyle education Last Documented On 2 12:45PM ; [facility] Assessments Includes: Assessments from this encounter Findings - [M25.511 - Pain in right shoulder] Arthralgia of right shoulder region - Last Documented On 08/04/2022 12:46PM ; [facility] - [M75.41 - Impingement syndrome of right shoulder] Impingement of right shoulder - Last Documented On 08/04/2022 12:46PM ; [facility] - [M47.892 - Other spondylosis, cervical region] Cervical spondylosis - Last Documented On 08/04/2022 12:46PM ; [facility] - [M54.2 - Cervicalgia] Cervicalgia - Last Documented On 08/04/2022 12:46PM ; [facility] - [G89.4 - Chronic pain syndrome] Chronic pain syndrome - Last Documented On 08/04/2022 12:46PM ; [facility] Instructions Includes: Instructions from this encounter Education and Decision Aids were provided during visit for: Lifestyle education Last Documented On 12:45PM ; [facility] Medical Equipment - Implanted Devices Includes: Current Devices No Medical Equipment Recorded Medications Includes: Medications discussed during this encounter and other current Medications New / Renewed during this visit MARTINA PALMER on 08/04/2022 Meloxicam 7.5 MG Oral Tablet Provider: MARTINA MARTINES 30 day supply: 30 tablet, 1 refills Diagnosis: Pain in right shoulder One tablet daily with a meal Pharmacy: [id number], [address] - Last Documented On 3 11:14AM By EDITH MACK ; [facility] Current Medications (continue as prescribed) Gabapentin 300 MG Oral Capsule 12/01/2022 Provider: MARTINA MARTINES Diagnosis: Other spondylosi s, cervical region One capsule three times a day Last Documented On 3 10:39AM By EDITH MACK ; [facility] Meloxicam 7.5 MG Oral Tablet 12/01/2022 Provider: MARTINA MARTINES Diagnosis: Pain in right sh oulder One tablet daily with a meal Last Documented On 3 10:39AM By EDITH MACK ; [facility] Daily Multivitamin Oral Capsule 08/04/2022 Provider: Diagnosis: Last Documented On 2 11:39AM By EDITH MACK ; [facility] DULoxetine HCl 60 MG Oral Ca psule Delayed Release Particles 08/04/2022 Provider: GARY SARABIA MD Diagnosis: Last Documented On 11:39AM By EDITH MACK ; [facility] Metoprolol Tartrate 25 MG Oral Tablet 07/02/2022 Pro vider: GARY SARABIA MD Diagnosis: Last Documented On 11:39AM By EDITH MACK ; [facility] Lisinopril 10 MG Oral Tablet 06/27/2022 Provider: GARY SARABIA MD Diagnosis: Last Documented On 11:39AM By EDITH MACK ; [facility] SUMAtriptan Succinate 100 MG Oral Tablet 06/20/2022 Provider: GARY SARABIA MD Diagnosis: As needed for migraine. Last Documented On 11:39AM By EDITH MACK ; [facility] Omeprazole 40 MG Oral Capsule Delayed Release 06/17/20 Provider: GARY SARABIA MD Diagnosis: Last Documented On 11:39AM By EDITH MAKC ; [facility] Medications Administered Includes: Administered Medications from this encounter No Administered Medications Recorded Vital Signs Includes: Vital Signs from this encounter Vital Name 08/04/2022 10:57A Blood Pressure Sitting L 120/70 BP Cuff Size Regular Pulse Rate-Sitting (bpm) 66 Temp-Temporal 96.9 Height (in) 65 Weight (lb) 198 Body Mass Index 32.9 Body Surface Area 2 Pain Level 4 Oxygen Saturation (%) 97 Last Documented: On 08/04/2022 10:59A M ; [facility] Results Includes: Results discussed during this encounter No Results Recorded For Specified Dates History of Present Illness Includes: History of Present Illness from this encounter HPI PHQ-9 Score: 4 Date:08/04/2022PI Score: Date:MiDAS Score: Date:SOAPP-R Score: 10 MODERATE Date:08/04/2022ain Location: RIGHT ARM AND SHOULDERQuality: ACHING, THROBBING, PRESSURE, SHARP, STABBING NUMB, PIN/NEEDLES, BURNING. Radiation: NONESeverity: Timing: CONTINUOUSAssociated Sx: WEAKNESSAggravating Factors:;LYING, IN/OUT OF CAR, STAIRS, Alleviating Factors:LYINGPast Tx: XRAY, MRI Mayte CONROY is a 62 year old female. - Allergy list reviewed - Problem list reviewed - Medication reconciliation performed - Medication list reviewed - Primary Care Provider: Dr Pleitez - Prescription Drug Monitoring Program website checked. N/A - Last dose of medication? - No vertigo Discussion: Patent referred for cervical radiculopathy. She presents today complaining of right shoulder pain worsening for the last 8 months that goes down the arm at times and sometimes across the clavicle and up into R side of neck and face. Pain is worse with lifting the arm or turning a door knob. She has tried taking Tyelnol, Ibuprofen, muscle rubs, and Lidocaine patches with little relief. She did PT on the shoulder 2 years or so ago but felt like it made things worse. She sometimes gets numbness and tingling to the fingers of the R hand with burning in the middle finger at times. She feels like her R arm is not as strong as it should be. With exam the shoulder seems to be the biggest area of concern but she certainly can and likely does have a radicular component that made need treated. I explained this to the patient today in detail and we discussed shoulder injection with steroid, starting daily NSAID, and PT. She is agreeable to this plan. She denies history of renal insufficiency, GI bleed, stomach ulcer, or significant GERD. May need to consider EMG/NCV and/or shoulder MRI. Imaging: All relevant imaging available was personally reviewed with the patient today with the following tests and results noted: MRI Cervical Spine 07/05/22 Spondylosis, most severe at C2-3, C3-4, C4-5. Mild stenosis at C4-5 and C5-6. R Shoulder X-ray 01/27/2022 Mild osteoarthritis Social History Description Last Updated Tobacco non-user 08/04/2022 Last Documented On 2 12:46PM ; [facility] Smoking Status Unknown Procedures and Surgical History Includes: Procedures from this encounter Procedures Code Diagnosis Performing Provider Service L ocation Service Date plan of care reviewed and agreed to Last Documented On 2 12:45PM ; [facility] plan of care reviewed and agreed to by t he patient Last Documented On 12:45PM ; [facility] use of tobacco assessment performed 1000F Last Documented On 10:44AM ; [facility] patient screened for future fall risk: documentation of any fall with injury in past year 1100F Last Documented On 10:47AM ; [facility] review of medications documented 1160F Last Documented On 10:44AM ; [facility] screening for adult depression: impressi on and score four Last Documented On 10:47AM ; [facility] standardized depression screening: posit valdez for symptoms Last Documented On 10:47AM ; [facility] encouragement to exercise Last Documented On 12:45PM ; [facility] Right Shoulder The procedure was described in detail to the patient. Risks explained included possible infection, bleeding, or allergic reaction to medication. The patient has also had an explanation of the side effects of corticosteroid. Allergies confirmed. The patient has had an opportunity to have all questions answwered today. The patient wishes to proceed and has signed a procedure specific consent form. ~DESCRIPTIONS OF PROCEDURE: The patient was place in a seated position with the affected arm bent at 45 degrees at the elbow and supported with a pillow. Posterior border of the acromial process identified and marked with a sterile marker. Area cleansed with Betasept using aseptic technique. Ethyl chloride used for local anesthetic. Following this, a 21 gauge, 2-inch standard needle was advanced into the appropriate space. After negative aspiration for blood, a 5ml solution containing 40mg Triamcinolone mixed with 0.5% Bupivacaine was injected. The needle was withdrawn intact. Sterile bandage was applied. The patient appeared to tolerate the procedure well. No immediate complications. [place] some imediate relief even w/ ROM. ~ [id number] Last Documented On 12:06PM ; [facility] Reviewed & agreed to staff entries. Last Documented On 10:44AM ; [facility] Clinical summary provided to patient Last Documented On 10:44AM ; [facility] Medical History Includes: Medical History addressed during this encounter Description Last Updated Has a fear of falling. 08/04/2022 Last Documented On 11/10/202 2 12:46PM ; [facility] Has had a fall in the last 12 months. Last Documented On 2 12:46PM ; [facility] Family History Includes: Family History addressed during this encounter Description Last Updated Daughter's history of cancer 08/04/2022 Last Documented On 2 12:46PM ; [facility] Fraternal history of cancer 08/04/2022 Last Documented On 2 12:46PM ; [facility] Fraternal history of epilepsy and recurr ent seizures 08/04/2022 Last Documented On 2 12:46PM ; [facility] Fraternal history of hepatic disorders 1 10/04/2021 Last Documented On 2 12:46PM ; [facility] Fraternal history of systemic hypertensi on 08/04/2022 Last Documented On 2 12:46PM ; [facility] Paternal history of cancer 08/04/2022 Last Documented On 2 12:46PM ; [facility] Paternal history of hepatic disorders Last Documented On 2 12:46PM ; [facility] Paternal history of systemic hypertensio n 08/04/2022 Last Documented On 2 12:46PM ; [facility] Sororal history of cancer 08/04/2022 Last Documented On 2 12:46PM ; [facility] Review of Systems Includes: Review of Systems from this encounter Systemic: No systemic symptoms other then noted and no recent weight loss. Head: No head symptoms other then noted. Headache. Neck: No neck pain. Eyes: Eye symptoms. Otolaryngeal: No otolaryngeal symptoms other than noted. Cardiovascular: No cardiovascular symptoms other than noted. Pulmonary: No pulmonary symptoms other than noted. Gastrointestinal: No difficulty chewing and no dysphagia. Genitourinary: No genitourinary symptoms other than noted. Endocrine: No endocrine symptoms other than noted. Hematologic: No easy bleeding and no tendency for easy bruising. Musculoskeletal: No musculoskeletal symptoms other than noted. Muscle aches, pain localized to one or more joints, and joint stiffness localized to one or more joints. Neurological: No neurological symptoms other than noted and no fainting passing out with needles or medical procedures. Psychological: Anxiety and depression. No sleep apnea. Skin: No skin symptoms other than noted. Mental Status Includes: Mental Status from this encounter Description Anxiety Functional Status Includes: Functional Status from this encounter No Functional Status Recorded Physical Exam Includes: Physical Exam from this encounter Allergies Includes: Active Allergies Substance Type Reaction Onset Date Resolved Date Statu s Sulfa Antibiotics Allergy 08/04/2022 A ctive Last Documented On 3 9:38AM ; [facility] Encounters Encounter Provider Location Date Check-In Time Check-Out Time Diagnosis PAIN MANAGEMENT NEW CONSULT EDITH COLEMAN MANUFACTURING SHIFT SUPERVISOR-FPA, ENGINE OILER-BC [facility] ON 08/04/20 22 10:40AM 12:47PM Cervical Spondylosis,Ch ronic Pain Syndrome,Cervi calgia,Shoulde r Impingement Right,Arthralg ia - Shoulder Region Right Insurance Includes: Active Insurance Policies Plan Name Member ID Group # Subscriber Relationship Effect valdez Dates 1 - [facility]/MEDICARE ADV/[employer]ARP [id number] [place] 2 - MEDICAID [facility] [id number] [place] Clinical Notes Includes: Clinical Notes from this encounter No Clinical Notes Recorded
--- OUTSIDE RECORDS SUMMARY | 2025-01-17 10:16 | XMS_ITS ---
Care Plan - [facility] Created on: January 17, 2025 [place]Y : 1960 Sex: Female Author Organization [facility] Address [address] [place] [address] Phone Care Team Providers Care Html Web Developer Name Role Phone NO FELIX, GARY Primary Care Provider [phone]
--- OUTSIDE RECORDS SUMMARY | 2025-01-17 10:16 | XMS_ITS | Clinical Summary ---
Author Organization [facility] Address [address] [place] [address] Phone Care Team Providers Care Watch Repair Person Name Role Phone GARY SARABIA MD Primary Care Provider [phone] Reason for Visit and Chief Complaint The Chief Complaint is: Follow up after C6-7 interlaminar epidural 10/26/2022 ~ Patient unable to explain but says there is good releif Problems Includes: Problems addressed during this encounter and other active Problems All Visits Onset Date Resolved Date Provider Condition S tatus Chronic Obstructive Pulmonary Disease Unknown EDITH G [place] [employer] SPECIALIST-FPA, SPECIAL EDUCATION SECRETARY-BC Active Last Documented On 2 11:11AM ; [facility] Hyperlipidemia Unknown EDITH G [place] [employer] SPECIALIST-F PA, SPECIAL EDUCATION SECRETARY-BC Active Last Documented On 2 11:10AM ; [facility] Essential Hypertension Unknown EDITH G [place] [employer]IC[employer]UM AND INSTRUCTION SPECIALIST-FPA, SPECIAL EDUCATION SECRETARY-BC Active Last Documented On 2 11:10AM ; [facility] Myalgia and Myositis Unknown EDITH G [place] [employer] INSTRUCTION SPECIALIST-FPA, SPECIAL EDUCATION SECRETARY-BC Active Last Documented On 2 11:11AM ; [facility] Plan of Treatment Referrals To [facility] - [address] [place] [address] - Other spondylosis, cervical region Note: consent for rightward C6-7 inter-laminar epidural steroid injection under fluoroscopy Last Documented On 4 1:56PM ; [facility] Education and Decision Aids were provided during visit for: Lifestyle education Last Documented On 3 9:33AM ; [facility] Assessments Includes: Assessments from this encounter Findings - [M25.511 - Pain in right shoulder] Arthralgia of right shoulder region - Last Documented On 12/01/2022 10:30AM ; [facility] - [M75.41 - Impingement syndrome of right shoulder] Impingement of right shoulder - Last Documented On 12/01/2022 10:30AM ; [facility] - [M47.892 - Other spondylosis, cervical region] Cervical spondylosis - Last Documented On 12/01/2022 10:30AM ; [facility] - [M54.2 - Cervicalgia] Cervicalgia - Last Documented On 12/01/2022 10:30AM ; [facility] - [G89.4 - Chronic pain syndrome] Chronic pain syndrome - Last Documented On 12/01/2022 10:30AM ; [facility] Instructions Includes: Instructions from this encounter Education and Decision Aids were provided during visit for: Lifestyle education Last Documented On 3 9:33AM ; [facility] Medical Equipment - Implanted Devices Includes: Current Devices No Medical Equipment Recorded Medications Includes: Medications discussed during this encounter and other current Medications New / Renewed during this visit MARTINA PALMER on 12/01/2022 Gabapentin 300 MG Oral Capsule Provider: MARTINA MARTINES 30 day supply: 90 capsule, 1 refills Diagnosis: Other spondylosis, cervical region One capsule three times a day Pharmacy: [id number] [address] - Last Documented On 3 10:39AM By EDITH MACK ; [facility] Meloxicam 7.5 MG Oral Tablet Provider: MARTINA MARTINES 30 day supply: 30 tablet, 1 refills Diagnosis: Pain in right shoulder One tablet daily with a meal Pharmacy: [id number] [address] - Last Documented On 3 10:39AM By EDITH MACK ; [facility] Current Medications (continue as prescribed) Daily Multivitamin Oral Capsule 08/04/2022 Provider: Diagnosis: Last Documented On 2 11:39AM By EDITH MACK ; [facility] DULoxetine HCl 60 MG Oral Ca psule Delayed Release Particles 08/04/2022 Provider: GARY SARABIA MD Diagnosis: Last Documented On 2 11:39AM By EDITH MACK ; [facility] Metoprolol Tartrate 25 MG Oral Tablet 07/02/2022 Pro vider: GARY SARABIA MD Diagnosis: Last Documented On 2 11:39AM By EDITH MACK ; [facility] Lisinopril 10 MG Oral Tablet 06/27/2022 Provider: GARY SARABIA MD Diagnosis: Last Documented On 2 11:39AM By EDITH MCAK ; [facility] SUMAtriptan Succinate 100 MG Oral Tablet 06/20/2022 Provider: GARY SARABIA MD Diagnosis: As needed for migraine. Last Documented On 2 11:39AM By EDITH MACK ; [facility] Omeprazole 40 MG Oral Capsule Delayed Release 06/17/20 Provider: GARY SARABIA MD Diagnosis: Last Documented On 2 11:39AM By EDITH MACK ; [facility] Medications Administered Includes: Administered Medications from this encounter No Administered Medications Recorded Vital Signs Includes: Vital Signs from this encounter Vital Name 12/01/2022 09:38A Blood Pressure Sitting L 126/84 BP Cuff Size Regular Pulse Rate-Sitting (bpm) 86 Temp-Temporal 96.8 Height (in) 65 Weight (lb) 201 Body Mass Index 33.4 Body Surface Area 2 Pain Level 4 Oxygen Saturation (%) 97 Last Documented: On 12/01/2022 9:40AM ; [facility] Results Includes: Results discussed during this encounter No Results Recorded For Specified Dates History of Present Illness Includes: History of Present Illness from this encounter HPI PHQ-9 Score: 4 Date:10/06/2022PI Score: Date:/MiDAS Score: DateSOAPP-R Score: 3 LOW Date:1/12/2023Pain Location: RIGHT ARM AND SHOULDERQuality: ACHING, THROBBING, [...] Last dose of medication? - No vertigo - Last drug screen appropriate N/A Discussion: Patient reports improvement in her neck, upper arm, and clavicle region after C6-7 ILESI. She states for 1 week she was able to sleep on her right side with out the burning and aching but that wore off after about a week and she now has to sleep on the left side again. She still has bad days with lifting or carrying things/increased activity but overall better. She states her overall function has improved most days. She has difficulty describing percentage of pain relief but based on her not being able to sleep on her right side and her activity increasing pain I would repeat epidural. The medication we have her on continues to help quite a bit. I would recommend repeating the cervical epidural injection to see if she can get a more prolonged increased benefit and improved function. She continues a HEP therapy guided program. PRIOR VISIT: Routine two month follow-up. The patient has been doing a home exercise therapy guided program for the last two months. She does these exercises most days of the week. She used the printed handout of exercises that she learned previously in physical therapy. She feels like the medication we prescribed has saved her . It has helped a lot with her pain. At her initial visit we gave her a right shoulder steroid injection. She was very pleased with her results. She states this nearly resolved all of her symptoms. However, she continues to have some discomfort in the right anterior clavicle area and the right upper arm. She states in the last week this has been more bothersome to her and it was pretty severe four days ago. We discussed cervical epidural steroid injection today, risk/benefit was discussed. Patient would like to proceed. She will continue her home exercise program. FIRST VISIT: Patent referred for cervical radiculopathy. She presents [...] Updated Tobacco non-user 08/04/2022 Last Documented On 3 9:33AM ; [facility] Smoking Status Unknown Procedures and Surgical History Includes: Procedures from this encounter Procedures Code Diagnosis Performing Provider Service L ocation Service Date plan of care reviewed and agreed to Last Documented On 3 9:33AM ; [facility] plan of care reviewed and agreed to by t he patient Last Documented On 3 9:33AM ; [facility] use of tobacco assessment performed 1000F Last Documented On 3 9:33AM ; [facility] patient screened for future fall risk: documentation of any fall with injury in past year 1100F Last Documented On 3 9:33AM ; [facility] review of medications documented 1160F Last Documented On 3 9:33AM ; [facility] screening for adult depression: impressi on and score four Last Documented On 3 9:33AM ; [facility] encouragement to exercise Last Documented On 3 9:33AM ; [facility] Reviewed & agreed to staff entries. Last Documented On 3 9:33AM ; [facility] Clinical summary provided to patient Last Documented On 3 9:33AM ; [facility] Medical History Includes: Medical History addressed during this encounter Description Last Updated Has a fear of falling. 12/01/2022 Last Documented On 3 10:30AM ; [facility] Has had a fall in the last 12 months. Last Documented On 3 10:30AM ; [facility] Family History Includes: Family History addressed during this encounter Description Last Updated Daughter's history of cancer 08/04/2022 Last Documented On 3 9:33AM ; [facility] Fraternal history of cancer 08/04/2022 Last Documented On 3 9:33AM ; [facility] Fraternal history of epilepsy and recurr ent seizures 08/04/2022 Last Documented On 3 9:33AM ; [facility] Fraternal history of hepatic disorders 1 10/04/2021 Last Documented On 3 9:33AM ; [facility] Fraternal history of systemic hypertensi on 08/04/2022 Last Documented On 3 9:33AM ; [facility] Paternal history of cancer 08/04/2022 Last Documented On 3 9:33AM ; [facility] Paternal history of hepatic disorders Last Documented On 3 9:33AM ; [facility] Paternal history of systemic hypertensio n 08/04/2022 Last Documented On 3 9:33AM ; [facility] Sororal history of cancer 08/04/2022 Last Documented On 3 9:33AM ; [facility] Review of Systems Includes: Review of Systems [...] ctive Last Documented On 3 9:38AM ; [facility] Encounters Encounter Provider Location Date Check-In Time Check-Out Time Diagnosis PAIN MANAGEMENT FOLLOW UP EDITH SEARS, MARTINA [facility] ON 12/02/19 23 9:32AM 10:25AM Cervical Spondylosis,Ch ronic Pain Syndrome,Cervi calgia,Shoulde r Impingement Right,Arthralg ia - Shoulder Region Right Insurance Includes: Active Insurance Policies Plan Name Member ID Group # Subscriber Relationship Effect valdez Dates 1 - [facility]/MEDICARE ADV/[employer] [id number] [place] 2 - MEDICAID [facility] [id number] [place] Clinical Notes Includes: Clinical Notes from this encounter * Progress note Date Encounter Last Documented by 12/01/2022 PAIN MANAGEMENT FOLLOW UP Last d ocumented on 12/01/2022; 10:30 AM, EDITH SEARS, MARTINA; [facility] Active Problems & Conditions - Chronic Obstructive Pulmonary Disease - Essential Hypertension - Hyperlipidemia - Myalgia and Myositis Chief Complaint The Chief Complaint is: Follow up after C6-7 interlaminar epidural 10/26/2022 Patient unable to explain but says there is good releif. History of Present Illness PHQ-9 Score: 4 Date:10/06/2022 BPI Score: Date:/ MiDAS Score: Date SOAPP-R Score: 3 LOW Date:10/06/2022 Pain Location: RIGHT ARM AND SHOULDER Quality: ACHING, THROBBING, PRESSURE, SHARP, STABBING NUMB, PIN/NEEDLES, BURNING. Radiation: NONE Severity: Timing: CONTINUOUS Associated Sx: WEAKNESS Aggravating Factors:;LYING, IN/OUT OF CAR, STAIRS, Alleviating Factors:LYING Past Tx: XRAY, MRI Mayte CONROY is a 62 year old female. - Allergy list reviewed - Problem list reviewed - Medication reconciliation performed - Medication list reviewed - Primary Care Provider: Dr Pleitez - Prescription Drug Monitoring Program website checked. N/A - Last dose of medication? - No vertigo - Last drug screen appropriate N/A Discussion: Patient reports improvement in her neck, upper arm, and clavicle region after C6-7 ILESI. She states for 1 week she was able to sleep on her right side with out the burning and aching but that wore off after about a week and she now has to sleep on the left side again. She still has bad days with lifting or carrying things/increased activity but overall better. She states her overall function has improved most days. She has difficulty describing percentage of pain relief but based on her not being able to sleep on her right side and her activity increasing pain I would repeat epidural. The medication we have her on continues to help quite a bit. I would recommend repeating the cervical epidural injection to see if she can get a more prolonged increased benefit and improved function. She continues a HEP therapy guided program. PRIOR VISIT: Routine two month follow-up. The patient has been doing a home exercise therapy guided program for the last two months. She does these exercises most days of the week. She used the printed handout of exercises that she learned previously in physical therapy. She feels like the medication we prescribed has saved her . It has helped a lot with her pain. At her initial visit we gave her a right shoulder steroid injection. She was very pleased with her results. She states this nearly resolved all of her symptoms. However, she continues to have some discomfort in the right anterior clavicle area and the right upper arm. She states in the last week this has been more bothersome to her and it was pretty severe four days ago. We discussed cervical epidural steroid injection today, risk/benefit was discussed. Patient would like to proceed. She will continue her home exercise program. FIRST VISIT: Patent referred for cervical radiculopathy. She presents [...] C5-6. R Shoulder X-ray 01/27/2022 Mild osteoarthritis Current Medication - Daily Multivitamin Oral Capsule 1 capsule daily 0 days, 0 refills - DULoxetine HCl 60 MG Oral Capsule Delayed Release Particles One tablet twice a day 90 days, 0 refills - Gabapentin 300 MG Oral Capsule One tablet three times a day One capsule three times a day, 30 days, 1 refills - Lisinopril 10 MG Oral Tablet One tablet twice a day 30 days, 0 refills - Meloxicam 7.5 MG Oral Tablet One tablet daily with a meal, 30 days, 1 refills - Metoprolol Tartrate 25 MG Oral Tablet One tablet twice a day 30 days, 0 refills - Omeprazole 40 MG Oral Capsule Delayed Release One tablet daily 90 days, 0 refills - SUMAtriptan Succinate 100 MG Oral Tablet As needed for migraine., 23 days, 0 refills Past Medical/Surgical History Reported: Physical Trauma: Has had a fall in the last 12 months. Has a fear of falling. Social History Tobacco use: Tobacco non-user. Allergies - Sulfa Antibiotics Family History Paternal: Systemic hypertension Hepatic disorders Cancer Fraternal: Systemic hypertension Hepatic disorders Epilepsy and recurrent seizures Cancer Sororal: Cancer Daughter's: Cancer Review Of Systems Systemic: No systemic symptoms other then noted [...] Skin: No skin symptoms other than noted. Physical Findings - Vitals taken 12/01/2022 09:38 am BP-Sitting L 126/84 mmHg BP Cuff Size Regular Pulse Rate-Sitting 86 bpm Temp-Temporal 96.8 F Height 65 in Weight 201 lbs Body Mass Index 33.4 kg/m2 Body Surface Area 2 m2 Pain Level 4 Pain Level Note Thoracic and Lumbar Oxygen Saturation 97 % Constitutional: Well developed. Well nourished. No acute distress. HEENT: NC/AT. Anicteric. Clear Conjunctiva. PERRLA. MM's pink/moist. No discharge via nares. No discharge via EAC. Neck supple. No thyromegally. No palpable masses. No lymphadenopathy in cervical chain bilaterally. CVS: RRR. No murmurs. No peripheral edema. Peripheral pulses palpable in all extremities. Pulmonary: CTA bilaterally. No wheezes. No rales. No crackles. No rubs. Normal chest expansion. Spine/MSK: Decreased ROM cervical spine especially with extension and left lateral rotation. Non tender cervical spine. Mild kyphosis with shoulders and head rolled forward. She holds her right arm in a very guarded 90 degree angle. Negative facet loading and Spurling's of the cervical spine. She has decreased ROM to R shoulder with tenderness over the AC area. She has significantly increased pain and difficulty with raising arm above the head and with abduction beyond the level of the shoulder. Gait: Not antalgic. No steppage gait. No Trendelenburg gait. No circumspected gait pattern. Heel walk normal. Toe walk normal. Tandem gait normal. Neuro: Awake. Alert. Oriented x3. DTR's intact in all extremities. DTR's equal in all extremities. No sensory deficit. No motor deficit. Psych: No apparent distress. Mood normal. Affect normal. No pain behaviors. Skin: Normal. [place], warm, dry. Assessment - [M25.511 - Pain in right shoulder] Arthralgia of right shoulder region - [M75.41 - Impingement syndrome of right shoulder] Impingement of right shoulder - [M47.892 - Other spondylosis, cervical region] Cervical spondylosis - [M54.2 - Cervicalgia] Cervicalgia - [G89.4 - Chronic pain syndrome] Chronic pain syndrome Therapy - Reviewed & agreed to staff entries. - Encouragement to exercise. - Clinical summary provided to patient. - Plan of care reviewed and agreed to by the patient. Counseling/Education - Lifestyle education Discussed Continue current medications. Schedule for C6-7 ILESI under fluoroscopy. FU after procedure. Risks, benefits and alternatives (including doing nothing) were discussed with the patient who agreed to proceed with interventional treatment despite risk and agreement that potential benefits outweighs the chance of significant harm. Plan StartCited - Other spondylosis, cervical region Referral: Pain Management Instructions: consent for rightward C6-7 inter-laminar epidural steroid injection under fluoroscopy Gabapentin 300 MG capsule One capsule three times a day, 30 days, 1 refills EndCited StartCited - Pain in right shoulder Meloxicam 7.5 MG tablet One tablet daily with a meal, 30 days, 1 refills EndCited Practice Management Use of tobacco assessment performed and patient screened for future fall risk documentation of any fall with injury in past year Review of medications documented; Screening for adult depression: impression and score four; [02801] New outpatient, medically appropriate H&P, moderate level decision making, 45-59 minutes. A total of 15 minutes were spent on this patient's evaluation, as above, with greater than 50% of this time spent in direct [id number] counseling and coordination of care. Results of this interaction were communicated directly to the patient's referring and/or primary care provider. All imaging studies and test results discussed in the above document were personally reviewed and evaluated by the performing provider. For all patients on acute or chronic opioids, ongoing need for opioid analgesia is assessed at each visit with consideration of discontinuation or wean to lowest effective dose when possible and appropriate. Contents of this document have been edited for correctness, but may be subject to typographical or art consultant errors. Verify all diagnoses, medications, dosages, and patient instructions with patient and/or the originator of this document. Health Reminders - Assess Blood Pressure satisfied 12/01/2022. - Assess BMI satisfied 12/01/2022. - Assess Tobacco Use satisfied 12/01/2022. - Depression Screening satisfied 12/01/2022. - Follow Up Plan BMI Management satisfied 12/01/2022.
--- OUTSIDE RECORDS SUMMARY | 2025-01-17 10:16 | XMS_ITS | Clinical Summary ---
Author Organization [facility] Address [address] [place] [address] Phone Care Team Providers Care Bander And Cellophaner Machine Helper Name Role Phone GARY SARABIA MD Primary Care Provider [phone] Reason for Visit and Chief Complaint The Chief Complaint is: 2 month follow up Problems Includes: Problems addressed during this encounter and other active Problems All Visits Onset Date Resolved Date Provider Condition S tatus Chronic Obstructive Pulmonary Disease Unknown EDITH G [place] CROWN ASSEMBLY MACHINE OPERATOR-FPA, TOOL STRAIGHTENER-BC Active Last Documented On 2 11:11AM ; [facility] Hyperlipidemia Unknown EDITH G [place] CROWN ASSEMBLY MACHINE OPERATOR-F PA, TOOL STRAIGHTENER-BC Active Last Documented On 2 11:10AM ; [facility] Essential Hypertension Unknown EDITH G KUL P CROWN ASSEMBLY MACHINE OPERATOR-FPA, TOOL STRAIGHTENER-BC Active Last Documented On 2 11:10AM ; [facility] Myalgia and Myositis Unknown EDITH G [place] CROWN ASSEMBLY MACHINE OPERATOR-FPA, TOOL STRAIGHTENER-BC Active Last Documented On 2 11:11AM ; [facility] Plan of Treatment Referrals To [facility] - [address] [place] [address] - Other spondylosis, cervical region Note: consent for Rightward C6-7 Inter-laminar epidural steroid injection under fluoroscopy Last Documented On 3 9:14AM ; [facility] Education and Decision Aids were provided during visit for: Lifestyle education Last Documented On 3 10:47AM ; [facility] Assessments Includes: Assessments from this encounter Findings - [M25.511 - Pain in right shoulder] Arthralgia of right shoulder region - Last Documented On 10/06/2022 11:15AM ; [facility] - [M75.41 - Impingement syndrome of right shoulder] Impingement of right shoulder - Last Documented On 10/06/2022 11:15AM ; [facility] - [M47.892 - Other spondylosis, cervical region] Cervical spondylosis - Last Documented On 10/06/2022 11:15AM ; [facility] - [M54.2 - Cervicalgia] Cervicalgia - Last Documented On 10/06/2022 11:15AM ; [facility] - [G89.4 - Chronic pain syndrome] Chronic pain syndrome - Last Documented On 10/06/2022 11:15AM ; [facility] Instructions Includes: Instructions from this encounter Education and Decision Aids were provided during visit for: Lifestyle education Last Documented On 3 10:47AM ; [facility] Medical Equipment - Implanted Devices Includes: Current Devices No Medical Equipment Recorded Medications Includes: Medications discussed during this encounter and other current Medications New / Renewed during this visit MARTINA PALMER on 10/06/2022 Gabapentin 300 MG Oral Capsule Provider: MARTINA MARTINES 30 day supply: 90 capsule, 1 refills Diagnosis: Other spondylosis, cervical region One tablet three times a day One capsule three times a day Pharmacy: [facility]/pharmacy #[id number] [address] - Last Documented On 3 10:27AM By EDITH MACK ; [facility] Meloxicam 7.5 MG Oral Tablet Provider: MARTINA MARTINES 30 day supply: 30 tablet, 1 refills Diagnosis: Pain in right shoulder One tablet daily with a meal Pharmacy: [facility]/pharmacy #[id number] [address] - Last Documented On 3 10:27AM By EDITH MACK ; [facility] Current Medications (continue as prescribed) Gabapentin 300 MG Oral Capsule 12/01/2022 Provider: MARTINA MARTINES Diagnosis: Other spondylosi s, cervical region One capsule three times a day Last Documented On 3 10:39AM By EDITH MACK ; [facility] Meloxicam 7.5 MG Oral Tablet 12/01/2022 Provider: MARTINA MARTINES Diagnosis: Pain in right sh oulder One tablet daily with a meal Last Documented On 3 10:39AM By EDITH MCAK ; [facility] Daily Multivitamin Oral Capsule 08/04/2022 Provider: Diagnosis: Last Documented On 2 11:39AM By EDITH MACK ; [facility] DULoxetine HCl 60 MG Oral Ca psule Delayed Release Particles 08/04/2022 Provider: GARY SARABIA MD Diagnosis: Last Documented On 2 11:39AM By EDITH MACK ; [facility] Metoprolol Tartrate 25 MG Oral Tablet 07/02/2022 Pro vider: GARY SARABIA MD Diagnosis: Last Documented On 2 11:39AM By EDITH MACK ; [facility] Lisinopril 10 MG Oral Tablet 06/27/2022 Provider: GARY SARABIA MD Diagnosis: Last Documented On 2 11:39AM By EDITH MACK ; [facility] SUMAtriptan Succinate 100 MG Oral Tablet 06/20/2022 Provider: GARY SARABIA MD Diagnosis: As needed for migraine. Last Documented On 2 11:39AM By EDITH MACK ; [facility] Omeprazole 40 MG Oral Capsule Delayed Release 06/17/20 Provider: GARY SARABIA MD Diagnosis: Last Documented On 2 11:39AM By EDITH MACK ; [facility] Medications Administered Includes: Administered Medications from this encounter No Administered Medications Recorded Vital Signs Includes: Vital Signs from this encounter Vital Name 10/06/2022 10:53A Blood Pressure Sitting R 126/72 BP Cuff Size Regular Pulse Rate-Sitting (bpm) 64 Temp-Temporal 96.5 Height (in) 65 Weight (lb) 199 Body Mass Index 33.1 Body Surface Area 2 Pain Level 8 Oxygen Saturation (%) 98 Last Documented: On 10/06/2022 10:55A M ; [facility] Results Includes: Results discussed during this encounter No Results Recorded For Specified Dates History of Present Illness Includes: History of Present Illness from this encounter HPI PHQ-9 Score: 4 Date:10/06/2022PI Score: Date:/MiDAS Score: DateSOAPP-R Score: 3 LOW Date:10/06/2022ain Location: RIGHT ARM AND SHOULDERQuality: ACHING, THROBBING, [...] - Last drug screen appropriate N/A Discussion: Routine two month follow-up. The patient has [...] Tobacco non-user 08/04/2022 Last Documented On 3 10:47AM ; [facility] Smoking Status Unknown Procedures and Surgical History Includes: Procedures from this encounter Procedures Code Diagnosis Performing Provider Service L ocation Service Date plan of care reviewed and agreed to Last Documented On 3 10:47AM ; [facility] plan of care reviewed and agreed to by tee cobos patient Last Documented On 3 10:47AM ; [facility] use of tobacco assessment performed 1000F Last Documented On 3 10:47AM ; [facility] patient screened for future fall risk: documentation of any fall with injury in past year 1100F Last Documented On 3 10:47AM ; [facility] review of medications documented 1160F Last Documented On 3 10:47AM ; [facility] screening for adult depression: impressi on and score four Last Documented On 3 10:59AM ; [facility] encouragement to exercise Last Documented On 3 10:47AM ; [facility] Reviewed & agreed to staff entries. Last Documented On 3 10:47AM ; [facility] Clinical summary provided to patient Last Documented On 3 10:47AM ; [facility] Medical History Includes: Medical History addressed during this encounter Description Last Updated Has a fear of falling. 12/01/2022 Last Documented On 3 10:47AM ; [facility] Has had a fall in the last 12 months. Last Documented On 3 10:47AM ; [facility] Family History Includes: Family History addressed during this encounter Description Last Updated Daughter's history of cancer 08/04/2022 Last Documented On 3 10:47AM ; [facility] Fraternal history of cancer 08/04/2022 Last Documented On 3 10:47AM ; [facility] Fraternal history of epilepsy and recurr ent seizures 08/04/2022 Last Documented On 3 10:47AM ; [facility] Fraternal history of hepatic disorders 1 10/04/2021 Last Documented On 3 10:47AM ; [facility] Fraternal history of systemic hypertensi on 08/04/2022 Last Documented On 3 10:47AM ; [facility] Paternal history of cancer 08/04/2022 Last Documented On 3 10:47AM ; [facility] Paternal history of hepatic disorders Last Documented On 3 10:47AM ; [facility] Paternal history of systemic hypertensio n 08/04/2022 Last Documented On 3 10:47AM ; [facility] Sororal history of cancer 08/04/2022 Last Documented On 3 10:47AM ; [facility] Review of Systems Includes: Review of Systems [...] ctive Last Documented On 3 9:38AM ; [facility] Encounters Encounter Provider Location Date Check-In Time Check-Out Time Diagnosis PAIN MANAGEMENT FOLLOW UP EDITH COLEMAN CROWN ASSEMBLY MACHINE OPERATOR-FPA, TOOL STRAIGHTENER-BC [facility] [place] 10/06/19 23 10:45AM 11:15AM Cervical Spondylosis,Ch ronic Pain Syndrome,Cervi calgia,Shoulde r Impingement Right,Arthralg ia - Shoulder Region Right Insurance Includes: Active Insurance Policies Plan Name Member ID Group # Subscriber Relationship Effect valdez Dates 1 - [facility]/MEDICARE ADV/[employer] [id number] [place] 2 - MEDICAID [place] [facility] [id number] [place] Clinical Notes Includes: Clinical Notes from this encounter No Clinical Notes Recorded
--- OUTSIDE RECORDS SUMMARY | 2025-01-17 10:16 | XMS_ITS | Clinical Summary ---
Author Organization [facility] Address [facility] [place] [address] Care Team Providers Care Outpatient Psychiatrist Name Role Phone Unavailable Primary Care Provider Unavailabl e Social History Tobacco Use Types Packs/Day Years Used Date Smoking Tobacco: Never Assessed Comments Unknown Sex and Gender Information Value Date Recorded Sex Assigned at Not on file Legal Sex Female 7:12 PM CDT Gender Identity Not on file Sexual Orientation Not on file Last Filed Vital Signs Vital Sign Reading Time Taken Comments Blood Pressure 118/64 01/24/2017 10:38 AM CDT Pulse 66 01/24/2017 10:38 AM CDT Temperature - - Respiratory Rate - - Oxygen Saturation - - Inhaled Oxygen Concentration - - Weight 88 kg (194 lb) 01/24/2017 10:38 AM CDT Height 167.6 cm (5' 6 ) 01/24/2017 10:38 AM CDT Body Mass Index 31.31 01/24/2017 10:38 AM CDT Plan of Treatment Health Maintenance Due Date Last Done Comments Cervical Cancer Screening Pa p Smear (Age 30 to 64) Every 3 Years 1960 Colorectal Cancer Screening Colonoscopy (10 Years) 1960 Annual Physical 02/11/1963 Hepatitis C 02/11/1978 DTaP, Tdap and Td Vaccines ( 1 - Tdap) 02/11/1979 Cervical Cancer Screening Pa p with HPV Testing (Age 30 to 64) Every 5 Years 02/11/1990 Cervical Cancer Screening with HPV 02/11/1990 Mammogram Screening 2000 Zoster Vaccines (1 of 2) 02/11/2010 Pneumococcal Vaccine: 50+ Ye ars (2 of 2 - PCV) 07/14/2017 07/14/2016 COVID-19 Vaccine (2023-2 5 season) 2024 RSV Immunization or 60+ Years (1 - 1-dose 75+ series) 02/11/2035 Meningococcal B Vaccine Aged Out No l onger eligible based on patient's age to complete this topic Meningococcal Vaccine Aged Out No wesley guanaco eligible based on patient's age to complete this topic RSV Immunizations Under 20 Months Aged Out No longer eligible based on patient's age to complete this topic
--- OUTSIDE RECORDS SUMMARY | 2025-01-17 10:16 | XMS_ITS | Clinical Summary ---
Author Organization [facility] Address [address] [place] [address] Care Team Providers Care Sales Floor Manager Name Role Phone Jaylon Garnett MD Primary Care Provider [phone] Source Comments [facility],non-owned Affiliates and Associated Physician Practices is amultiple site organization consisting of ambulatory clinics and hospital sitesin [place], [place], [place] and [place]. This disclosure is being madepursuant to the Care Everywhere program and may not contain all information available regarding this patient. Last updated 18.[facility] Allergies No known active allergies Medications * Be aware that medications may not be up to date on this document. Alwaysverify current medications with the patient. meloxicam (MOBIC) 15 MG tablet Take 1 tablet by mouth once daily 30 tablet 03/09/2018 Active Active Problems Problem Noted Date Diagnosed Date Tendinopathy of right rotator cuff 03/09/2018 Arthritis of right acromioclavicular joint 03/09 Social History Tobacco Use Types Packs/Day Years Used Date Smoking Tobacco: Never Smokeless Tobacco: Never Alcohol Use Standard Drinks/Week Comments No 0 (1 standard drink = 0.6 oz pur e alcohol) Comments Unknown Sex and Gender Information Value Date Recorded Sex Assigned at Not on file Legal Sex Female 11:50 AM CDT Gender Identity Not on file Sexual Orientation Not on file Last Filed Vital Signs Vital Sign Reading Time Taken Comments Blood Pressure 115/72 03/09/2018 1:43 PM CDT Pulse - - Temperature - - Respiratory Rate - - Oxygen Saturation - - Inhaled Oxygen Concentration - - Weight 79.4 kg (175 lb) 03/09/2018 1:43 PM CDT Height 170.2 cm (5' 7 ) 03/09/2018 1:43 PM CDT Body Mass Index 27.41 03/09/2018 1:43 PM CDT Plan of Treatment Health Maintenance Due Date Last Done Comments COLOGUARD (AGES 45-75) - COL ON CA SCREENING 1960 COLON MONITORING 1960 COLONOSCOPY - COLON CA SCREENING 1960 CT COLONOGRAPHY - COLON CA SCREENING 1960 Colorectal Cancer Screening 1960 FIT - COLON CA SCREENING 1960 FLEX SIG - COLON CA SCREENING 1960 LIPID TESTING 1960 MAMMOGRAM 1960 HIV SCREENING 02/11/1975 HEPATITIS C SCREENING 02/07/1978 DTAP/TDAP/TD VACCINES (1 - Tdap) 02/11/1979 PNEUMOCOCCAL VACCINE 50+ (1 of 1 - PCV) 02/11/2010 ZOSTER VACCINE (1 of 2) 02/11/2010 SCREENING FOR DIABETES 03/09/2018 COVID-19 VACCINE ( - 2023-2 5 season) 2024 DEPRESSION SCREENING 09/25/2024 INFLUENZA VACCINE (Season Ended) 2025 Respiratory Syncytial Virus (RSV) Vaccine Pt: or over 60 yrs (1 - 1-dose 75+ series) 02/11/2035 HEPATITIS B VACCINE Aged Out No longe r eligible based on patient's age to complete this topic HIB VACCINE Aged Out No longer eligi ble based on patient's age to complete this topic HPV VACCINE Aged Out No longer eligi ble based on patient's age to complete this topic MENINGOCOCCAL (Group B) VACC INE SHARED DECISION-MAKING Aged Out No longer eligibl e based on patient's age to complete this topic MENINGOCOCCAL GROUPS A/C/Y/W VACCINE Aged Out No longer eligible b ased on patient's age to complete this topic Insurance MEDICARE MEDICAID - OUT OF STATE MEDICARE MEDICAID - [place] Care Teams Sales Floor Manager Relationship Specialty Start Date End Date Jaylon Garnett MD [address] [place] [id number] PCP - General Family Medicine 02/27/18
--- OUTSIDE RECORDS SUMMARY | 2025-01-17 10:16 | XMS_ITS ---
Author Organization [facility] Address [address] [place] [address] Phone Care Team Providers Care Rivet Tester Name Role Phone GARY SARABIA MD Primary Care Provider [phone] Problems Includes: Active, inactive, and resolved Problems All Visits Onset Date Resolved Date Provider Condition S tatus Chronic Obstructive Pulmonary Disease Unknown EDITH G [place] INCIDENT RESPONSE ENGINEER-FPA, SOCIAL SERVICE AGENCY DIRECTOR-BC Active Last Documented On 2 11:11AM ; [facility] Hyperlipidemia Unknown EDITH G [place] INCIDENT RESPONSE ENGINEER-F PA, SOCIAL SERVICE AGENCY DIRECTOR-BC Active Last Documented On 2 11:10AM ; [facility] Essential Hypertension Unknown EDITH G KUL P INCIDENT RESPONSE ENGINEER-FPA, SOCIAL SERVICE AGENCY DIRECTOR-BC Active Last Documented On 2 11:10AM ; [facility] Myalgia and Myositis Unknown EDITH G [place] INCIDENT RESPONSE ENGINEER-FPA, SOCIAL SERVICE AGENCY DIRECTOR-BC Active Last Documented On 2 11:11AM ; [facility] Plan of Treatment Referrals To Diagnosis Pain Management [address] [address] - Other spondylosis, cervical region Note: consent for Rightward C6-7 Inter-laminar epidural steroid injection under fluoroscopy Last Documented On 3 9:14AM ; [facility] Pain Management [facility] [address] [place] [address] - Other spondylosis, cervical region Note: consent for rightward C6-7 inter-laminar epidural steroid injection under fluoroscopy Last Documented On 4 1:56PM ; [facility] Education and Decision Aids were provided during visit for: Lifestyle education Last Documented On 3 9:33AM ; [facility] Lifestyle education Last Documented On 3 10:47AM ; [facility] Lifestyle education Last Documented On 2 12:45PM ; [facility] Assessments Includes: Assessments for all patient encounters Findings Encounter Date Arthralgia of right shoulder region PAIN MANAGEMENT FOLLOW UP with EDITH Hua [place] INCIDENT RESPONSE ENGINEER-FPA, SOCIAL SERVICE AGENCY DIRECTOR-BC 12/01/2022 Last Documented On 3 10:30AM ; [facility] Cervical spondylosis PAIN MANAGEMENT FOL LOW UP with EDITH G [place] INCIDENT RESPONSE ENGINEER-FPA, SOCIAL SERVICE AGENCY DIRECTOR-BC 12/01/2022 Last Documented On 3 10:30AM ; [facility] Cervicalgia PAIN MANAGEMENT FOLLOW UP with Kathryn MARQUEZSA Sequeira [place] INCIDENT RESPONSE ENGINEER-FPA, SOCIAL SERVICE AGENCY DIRECTOR-BC 12/01/2022 Last Documented On 3 10:30AM ; [facility] Chronic pain syndrome PAIN MANAGEMENT FO LLOW UP with EDITH Hua [place] INCIDENT RESPONSE ENGINEER-FPA, SOCIAL SERVICE AGENCY DIRECTOR-BC 12/01/2022 Last Documented On 3 10:30AM ; [facility] Impingement of right shoulder PAIN MANAG EMENT FOLLOW UP with EDITH Hua [place] INCIDENT RESPONSE ENGINEER-FPA, SOCIAL SERVICE AGENCY DIRECTOR-BC 12/01/2022 Last Documented On 3 10:30AM ; [facility] Arthralgia of right shoulder region PAIN MANAGEMENT FOLLOW UP with EDITH G [place] INCIDENT RESPONSE ENGINEER-FPA, SOCIAL SERVICE AGENCY DIRECTOR-BC 10/06/2022 Last Documented On 3 11:15AM ; [facility] Cervical spondylosis PAIN MANAGEMENT FOL LOW UP with EDITH Hua [place] INCIDENT RESPONSE ENGINEER-FPA, SOCIAL SERVICE AGENCY DIRECTOR-BC 10/06/2022 Last Documented On 3 11:15AM ; [facility] Cervicalgia PAIN MANAGEMENT FOLLOW UP with Kathryn ALLISON Hua [place] INCIDENT RESPONSE ENGINEER-FPA, SOCIAL SERVICE AGENCY DIRECTOR-BC 10/06/2022 Last Documented On 3 11:15AM ; [facility] Chronic pain syndrome PAIN MANAGEMENT FO LLOW UP with EDITH Hua [place] INCIDENT RESPONSE ENGINEER-FPA, SOCIAL SERVICE AGENCY DIRECTOR-BC 10/06/2022 Last Documented On 3 11:15AM ; [facility] Impingement of right shoulder PAIN MANAG EMENT FOLLOW UP with EDITH Hua [place] INCIDENT RESPONSE ENGINEER-FPA, SOCIAL SERVICE AGENCY DIRECTOR-BC 10/06/2022 Last Documented On 3 11:15AM ; [facility] Arthralgia of right shoulder region PAIN MANAGEMENT NEW CONSULT with EDITH Hua [place] INCIDENT RESPONSE ENGINEER-FPA, SOCIAL SERVICE AGENCY DIRECTOR-BC 08/04/2022 Last Documented On 2 12:46PM ; [facility] Cervical spondylosis PAIN MANAGEMENT NEW CONSULT with EDITH COLEMAN INCIDENT RESPONSE ENGINEER-FPA, SOCIAL SERVICE AGENCY DIRECTOR-BC 08/04/2022 Last Documented On 2 12:46PM ; [facility] Cervicalgia PAIN MANAGEMENT NEW CONSULT with EDITH COLEMAN INCIDENT RESPONSE ENGINEER-FPA, SOCIAL SERVICE AGENCY DIRECTOR-BC 08/04/2022 Last Documented On 2 12:46PM ; [facility] Chronic pain syndrome PAIN MANAGEMENT NE W CONSULT with EDITH COLEMAN INCIDENT RESPONSE ENGINEER-FPA, SOCIAL SERVICE AGENCY DIRECTOR-BC 08/04/2022 Last Documented On 2 12:46PM ; [facility] Impingement of right shoulder PAIN MANAG EMENT NEW CONSULT with EDITH Hua [place] INCIDENT RESPONSE ENGINEER-FPA, SOCIAL SERVICE AGENCY DIRECTOR-BC 08/04/2022 Last Documented On 2 12:46PM ; [facility] Instructions Includes: Instructions for all patient encounters Education and Decision Aids were provided during visit for: Lifestyle education Last Documented On 3 9:33AM ; [facility] Lifestyle education Last Documented On 3 10:47AM ; [facility] Lifestyle education Last Documented On 2 12:45PM ; [facility] Medical Equipment - Implanted Devices Includes: Current and historical Devices No Medical Equipment Recorded Medications Includes: Current and historical Medications Current Medications (continue as prescribed) Gabapentin 300 MG Oral Capsule 12/01/2022 Provider: MARTINA MARTINES Diagnosis: Other spondylosi s, cervical region One capsule three times a day Last Documented On 3 10:39AM By EDITH MACK ; [facility] Meloxicam 7.5 MG Oral Tablet 12/01/2022 Provider: MARTINA MARTINES Diagnosis: Pain in right sh oulder One tablet daily with a meal Last Documented On 3 10:39AM By EDITH MACK ; [facility] Daily Multivitamin Oral Capsule 08/04/2022 Provider: Diagnosis: Last Documented On 2 11:39AM By EDITH MACK ; [facility] DULoxetine HCl 60 MG Oral Ca psule Delayed Release Particles 08/04/2022 Provider: GARY SARABIA MD Diagnosis: Last Documented On 2 11:39AM By EDITH MACK ; [facility] Metoprolol Tartrate 25 MG Oral Tablet 07/02/2022 Pro vider: GARY SARABIA MD Diagnosis: Last Documented On 2 11:39AM By EDITH MACK ; [facility] Lisinopril 10 MG Oral Tablet 06/27/2022 Provider: GARY SARABIA MD Diagnosis: Last Documented On 2 11:39AM By EDITH MACK ; [facility] SUMAtriptan Succinate 100 MG Oral Tablet 06/20/2022 Provider: GARY SARABIA MD Diagnosis: As needed for migraine. Last Documented On 2 11:39AM By EDITH MACK ; [facility] Omeprazole 40 MG Oral Capsule Delayed Release 06/17/20 Provider: GARY SARABIA MD Diagnosis: Last Documented On 2 11:39AM By EDITH MACK ; [facility] Past Medications on file Gabapentin 300 MG Oral Capsule 10/06/2022 - 12/01/2022 Provider: MARTINA PALMER Diagnosis: Other spondylosi s, cervical region One tablet three times a day One capsule three times a day Last Documented On 3 10:27AM By EDITH MACK ; [facility] Meloxicam 7.5 MG Oral Tablet 10/06/2022 - 12/01/2022 Provider: KELLIE PALMER-BC Diagnosis: Pain in right shoulder One tablet daily with a meal Last Documented On 3 10:27AM By EDITH MACK ; [facility] Meloxicam 7.5 MG Oral Tablet 08/04/2022 - 10/06/2022 Provider: EDITH COLEMAN APRN-IGOR JEROMEP-BC Diagnosis: Pain in right shoulder One tablet daily with a meal Last Documented On 3 11:14AM By EDITH MACK ; [facility] Gabapentin 300 MG Oral Capsule 07/28/2022 - 10/06/2022 Provider: GARY SARABIA MD Diagnosis: Last Documented On 3 11:14AM By EDITH COLEMAN SOCIAL SERVICE AGENCY DIRECTORROBBI ; [facility] Medications Administered Includes: Administered Medications in patient's chart No Administered Medications Recorded Results Includes: Results from 01/18/2024 through 01/17/2025 No Results Recorded For Specified Dates History of Present Illness History of Present Illness not supported for this document type No History of Present Illness Recorded Social History Description Last Updated Tobacco non-user 08/04/2022 Last Documented On 2 12:46PM ; [facility] Smoking Status Unknown Medical History Includes: Medical History in patient's chart Description Last Updated Has a fear of falling. 12/01/2022 Last Documented On 3 10:30AM ; [facility] Has had a fall in the last 12 months. Last Documented On 3 10:30AM ; [facility] Family History Includes: Family History in patient's chart Description Last Updated Daughter's history of cancer 08/04/2022 Last Documented On 2 12:46PM ; [facility] Fraternal history of cancer 08/04/2022 Last Documented On 2 12:46PM ; [facility] Fraternal history of epilepsy and recurr ent seizures 08/04/2022 Last Documented On 2 12:46PM ; [facility] Fraternal history of hepatic disorders 1 10/04/2021 Last Documented On 2 12:46PM ; [facility] Fraternal history of systemic hypertensi on 08/04/2022 Last Documented On 2 12:46PM ; [facility] Paternal history of cancer 08/04/2022 Last Documented On 2 12:46PM ; [facility] Paternal history of hepatic disorders Last Documented On 2 12:46PM ; [facility] Paternal history of systemic hypertensio n 08/04/2022 Last Documented On 2 12:46PM ; [facility] Sororal history of cancer 08/04/2022 Last Documented On 2 12:46PM ; [facility] Review of Systems Review of Systems not supported for this document type No Review of Systems Recorded Mental Status Description Anxiety Functional Status No Functional Status Recorded Physical Exam Physical Exam not supported for this document type No Physical Exam Recorded Allergies Includes: Active, inactive, and resolved Allergies Substance Type Reaction Onset Date Resolved Date Statu s Sulfa Antibiotics Allergy 08/04/2022 A ctive Last Documented On 3 9:38AM ; [facility] Insurance Includes: Active Insurance Policies Plan Name Member ID Group # Subscriber Relationship Effect valdez Dates 1 - [facility]/MEDICARE ADV/[employer] [id number] [place] 2 - MEDICAID [place] [facility] [id number] [place] Clinical Notes Includes: Signed Clinical Notes starting from 10/14/2022 No Clinical Notes Recorded
== END 2025-01-17 10:00 | disposition home or self-care (01) ==
LOC: CHSIMG 10:01
PROVIDERS: PCP Family Medicine; Visit Provider Family Medicine
DX: R05.1 Acute cough (principal)
CPT/HCPCS: 71046

== ENCOUNTER 2025-03-13 07:13 | Outpatient (CLI) | payer MEDICARE, MEDICAID, SELFPAY ==
--- NOTE | ~2025-03-13 | MR_ITS ---
EXAMINATION: MR brain/brain stem wo con DATE: 03/13/2025 08:15 INDICATION: Left-sided headache. Abnormal visual rausch. TECHNIQUE: Magnetic resonance imaging (MRI) of the brain and brainstem was performed without intraven ous contrast. Sequences included sagittal and axial T1-weighted SE, axial diffusion-weighted FS SE, a xial T2*-weighted GRE, axial T2-weighted FLAIR, and axial T2-weighted FSE. Apparent diffusion coeffic ient (ADC) maps were created. COMPARISON: Brain MR dated 03/03/2018 FINDINGS: There are no areas of restricted diffusion to suggest acute infarction. No intracranial hemorrhage or abnormal intracranial mass lesion. There are a few small scattered foci of nonspecific increased T2- weighted signal intensity in the cerebral white matter, predominantly involving the deep and perivent ricular white matter. There are no intraparenchymal signal abnormalities seen on the other pulse sequ ences. The ventricles are symmetric and normal in size. There are no abnormal extra-axial fluid colle ctions. Flow voids are seen in the cerebral arteries on the T2-weighted sequences consistent with the ir expected patency. Changes of bilateral intraocular lens replacement. Visualized orbits and soft t issues are unremarkable. IMPRESSION: 1. Normal for age brain MR with a few scattered small foci of cerebral white matter T2 hyperintensity , likely sequela of chronic small vessel ischemic disease. Reviewed, dictated and finalized at location A. IMPRESSION: 1. Normal for age brain MR with a few scattered small foci of cerebral white ma tter T2 hyperintensity, likely sequela of chronic small vessel ischemic disease .
--- OUTSIDE RECORDS SUMMARY | 2025-03-13 07:17 | XMS_ITS | Clinical Summary ---
Author Organization [facility] Address [address] [place] [address] Care Team Providers Care Barber Or Beauty Shop Manager Name Role Phone Jaylon Garnett MD Primary Care Provider [phone] Source Comments [facility],non-owned Affiliates and Associated Physician Practices is amultiple site organization consisting of ambulatory clinics and hospital sitesin [place], [place], [place] and [place]. This disclosure is being madepursuant to the Care Everywhere program and may not contain all information available regarding this patient. Last updated 18.[facility] Allergies No known active allergies Medications * [...] 1:43 PM CDT Height 170.2 cm (5' 7) 03/09/2018 1:43 PM CDT Body Mass Index 27.41 03/09/2018 1:43 PM CDT Plan of Treatment Health Maintenance Due Date Last Done Comments BONE DENSITY TESTING 1960 COLOGUARD (AGES 45-75) - COL ON CA [...] 02/11/2010 SCREENING FOR DIABETES 03/09/2018 COVID-19 VACCINE (1 - 2023-2 5 season) 2024 DEPRESSION SCREENING [...] OUT OF STATE MEDIC[place] [address] Care Teams Barber Or Beauty Shop Manager Relationship Specialty Start Date End Date Jaylon Garnett MD [address] [place] [address] PCP - General Family Medicine 02/27/18
--- OUTSIDE RECORDS SUMMARY | 2025-03-13 07:17 | XMS_ITS | Clinical Summary ---
Author Organization [facility] Address [facility] [place] [address] Care Team Providers Care Winery Cellar Hand Name Role Phone Unavailable Primary Care Provider [...] 10:38 AM CDT Height 167.6 cm (5' 6) 01/24/2017 10:38 AM CDT Body Mass Index 31.31 01/24/2017 10:38 AM CDT Plan of Treatment Health Maintenance Due Date Last Done Comments Colorectal Cancer Screening Colonoscopy (10 Years) 1960 Hepatitis C 02/11/1978 DTaP, Tdap and Td Vaccines ( 1 - Tdap) 02/11/1979 Mammogram Screening 2000 Zoster Vaccines (1 of 2) 02/11/2010 Pneumococcal Vaccine: 50+ Ye ars (2 of 2 - PCV) 07/14/2017 07/14/2016 COVID-19 Vaccine ( - 2023-2 5 season) 2024 Dexa Scan (General) 02/11/2025 RSV Immunization or 60+ Years (1 - [...]
== END 2025-03-13 07:14 | disposition home or self-care (01) ==
LOC: CHSIMG 07:14
PROVIDERS: PCP Family Medicine; Visit Provider Family Medicine
DX: R51.9 Headache, unspecified (principal); H53.40 Unspecified visual field defects
CPT/HCPCS: 70551

== ENCOUNTER 2025-07-09 14:22 | Outpatient (CLI) | payer MEDICARE, MEDICAID, SELFPAY ==
--- NOTE | ~2025-07-09 | XR_ITS ---
XR abdomen obstructive series HISTORY: Abdominal Pain. COMPARISON: NONE FINDINGS: AP, upright and lateral views of the abdomen were obtained. The bowel gas pattern is unremarkable. Retained stool throughout the colon suggestive of constipation. No free air or air fluid levels are noted. There is no evidence of obstruction. IMPRESSION: Nonobstructive bowel gas pattern. Constipation. Reviewed, dictated and finalized at location S.
[2025-07-09 14:35] LABS: Hematocrit 38.8 % (35.0-42.0); Hemoglobin 12.7 g/dL (11.7-13.8); Immature Granulocyte Percent A 0.3 % (0.0-0.0); Lymphocytes Absolute Auto 3.14 K/mm3 (1.10-4.50); Mean Corpuscular HGB Conc 32.7 g/dL (32-36); Mean Corpuscular Hemoglobin 28.5 pg (27.0-31.0); Mean Corpuscular Volume 87.0 fL (78.0-102.0); Nucleated Red Blood Cells Absolute Auto 0.00 K/mm3 (0.00-0.00); Nucleated Red Blood Cells Perc 0.0 % (0-0.0); Platelet Count Result 320 K/mm3 (150-420); Red Blood Count 4.46 M/mm3 (4.20-5.40); White Blood Count 9.0 K/mm3 (4.8-10.8)
[2025-07-09 14:37] LABS: Add Urine Microscopic? YES; Appearance Urine Clear (Clear); Glucose Urine UA Negative (Negative); Leukocyte Esterase Ur Negative LEU/UL (Negative); Nitrate Urine Negative (Negative); Specific Grav Ur >= 1.030 (1.010-1.020)
[2025-07-09 14:59] LABS: Alanine Aminotransferase 22 U/L (6-35); Albumin Level 4.4 g/dL (3.5-5.1); Alkaline Phosphatase 105 U/L (38-126); Amylase 68 U/L (30-110); Anion Gap 9 mmol/L (4-12); Aspartate Amino Transferase 29 U/L (14-36); Bilirubin,Total 0.9 mg/dL (0.2-1.3); Blood Urea Nitrogen 14 mg/dL (7-17); Calcium 10.0 mg/dL (8.4-10.2); Carbon Dioxide 26 mmol/L (22-30); Chloride 108 mmol/L (98-107); Estimated Glomerular Filt Rate > 60; Glucose 95 mg/dL (65-110); Lipase 121 U/L (23-300); Osmolality Calculated 296 mOsm/kg (285-295); Potassium 4.0 mmol/L (3.4-5.0); Sodium 143 mmol/L (137-145); Total Protein 7.8 g/dL (6.3-8.2)
--- OUTSIDE RECORDS SUMMARY | 2025-07-09 16:40 | XMS_ITS | Patient Health Record ---
Author Organization [facility] Address [address] [place], [place] [address] Care Team Providers Care Alley Cleaner Name Role Phone SHALONDA BEAVERS Unavailable [phone] Jaylon Garnett Unavailable Unavailable Reason For Referral No Information Plan Of Treatment No Information Insurance Providers Payer Name Payer Address Payer Phone Subscriber Number Group Number Insured Name Patient Relationship to Insured Coverage Start Date Coverage End Date Medicare Part B [facility] [address] [place] [phone] [id number] [place] Self - patient is the insured
--- OUTSIDE RECORDS SUMMARY | 2025-07-09 16:40 | XMS_ITS | Clinical Summary ---
Author Organization [facility] Address [address] [facility] [place] [address] Care Team Providers Care Managed Care Liaison Name Role Phone Jaylon Garnett MD Primary Care Provider [phone] Source Comments [facility],non-owned Affiliates and Associated Physician Practices is amultiple site organization consisting of ambulatory clinics and hospital sitesin [place], [place], [place] and [place]. This disclosure is being madepursuant to the Care Everywhere program and may not contain all information available regarding this patient. Last updated 18.[facility] Allergies No known active allergies Medications * [...] of 2) 02/11/2010 SCREENING FOR DIABETES 03/09/2018 DEPRESSION SCREENING 09/25/2024 COVID-19 VACCINE (1 - 2023-2 5 season) 2025 INFLUENZA VACCINE (#1) 2025 Respiratory Syncytial Virus (RSV) Vaccine Pt: [...] OUT OF STATE MEDICARE [place] [address] Care Teams Managed Care Liaison Relationship Specialty Start Date End Date Jaylon Garnett MD [address] [place] [address] PCP - General Family Medicine 02/27/18
--- OUTSIDE RECORDS SUMMARY | 2025-07-09 16:40 | XMS_ITS | Clinical Summary ---
Author Organization [facility] Address [facility] [place] [address] Care Team Providers Care Speech Correction Assistant Name Role Phone Unavailable Primary Care Provider [...] (2 of 2 - PCV) 07/14/2017 07/14/2016 Dexa Scan (General) 02/11/2025 COVID-19 Vaccine (1 - 2023-2 5 season) 2025 Influenza Adult (#1) 2025 07/07/2016 RSV Immunization or 60+ Years (1 - [...]
== END 2025-07-09 14:23 | disposition home or self-care (01) ==
LOC: CHSLAB 14:23
PROVIDERS: PCP Family Medicine; Visit Provider Family Medicine
DX: R10.11 Right upper quadrant pain (principal); K80.50 Calculus of bile duct without cholangitis or cholecystitis without obstruction
CPT/HCPCS: 36415; 74019; 80053; 81001; 82150; 83690; 85025

== ENCOUNTER 2025-07-11 07:10 | Outpatient (CLI) | payer MEDICARE, MEDICAID, SELFPAY ==
--- NOTE | ~2025-07-11 | US_ITS ---
ULTRASOUND ABDOMEN LIMITED (RIGHT UPPER QUADRANT) Clinical History: RUQ PAIN Comparison: None Technique: Right upper quadrant sonography Findings: Liver: Normal size. Echogenic. No intrahepatic biliary ductal dilatation. Normal hepatopedal flow main portal vein. Common Duct: Normal caliber. 4 mm. Gallbladder: No stones. No wall thickening. No pericholecystic fluid. Pancreas: Obscured by bowel gas. IMPRESSION: 1. No acute findings. Reviewed, dictated and finalized at location R. IMPRESSION: 1. No acute findings.
--- OUTSIDE RECORDS SUMMARY | 2025-07-11 07:15 | XMS_ITS | Clinical Summary ---
Author Organization [facility] Address [address] [facility] [place] [address] Care Team Providers Care Quality Checker Name Role Phone Jaylon Garnett MD Primary Care Provider [phone] Source Comments [facility],non-owned Affiliates and Associated Physician Practices is amultiple site organization consisting of ambulatory clinics and hospital sitesin [place], [place], [place] and [place]. This disclosure is being madepursuant to the Care Everywhere program and may not contain all information available regarding this patient. Last updated 18.[facility] Allergies No known active allergies Medications * [...] STATE MEDICARE MEDICAID - [place] Care Teams Quality Checker Relationship Specialty Start Date End Date Jaylon Garnett MD [address] [place] [address] PCP - General Family Medicine 02/27/18
--- OUTSIDE RECORDS SUMMARY | 2025-07-11 07:15 | XMS_ITS | Clinical Summary ---
Author Organization [facility] Address [facility] [place] [address] Care Team Providers Care Crm Manager Name Role Phone Unavailable Primary Care Provider [...]
== END 2025-07-11 07:11 | disposition home or self-care (01) ==
LOC: CHSIMG 07:13
PROVIDERS: PCP Family Medicine; Visit Provider Family Medicine
DX: R10.11 Right upper quadrant pain (principal)
CPT/HCPCS: 76705

== ENCOUNTER 2025-07-21 10:12 | Outpatient (CLI) | payer MEDICARE, MEDICAID, SELFPAY ==
--- NOTE | ~2025-07-21 | NM_ITS ---
EXAMINATION: NM_HEPATWP_NM DATE: 07/21/2025 12:37 INDICATION: Right upper quadrant abdominal pain. COMPARISON: Ultrasound 07/11/2025 TECHNIQUE: 5.8 mCi Tc-99m mebrofenin (Choletec) was administered intravenously. Scintigraphic images of the abdomen were obtained for one hour. Then, 1.7 mcg sincalide (Kinevac) IV was administered, and imaging was continued for 30 minutes. FINDINGS: There is normal clearance of radiotracer from the blood pool. There is homogeneous tracer uptake by the liver. Activity progresses to the bowel and gallbladder. Gallbladder ejection fraction (GBEF) was 20%. Note that most patients with gallbladder dysfunction have GBEF < 35%, which overlaps with the broad normal range of 10-90%. IMPRESSION: 1. Gallbladder ejection fraction in the lower range of normal. Note that this value overlaps with the range of values that may be seen with gallbladder dysfunction and/or chronic cholecystitis if there is appropriate clinical correlation. Reviewed, dictated and finalized at location E. IMPRESSION: 1. Gallbladder ejection fraction in the lower range of normal. Note that this value overlaps with the range of values that may be seen with gallbladder dysfu nction and/or chronic cholecystitis if there is appropriate clinical correlatio nWinston
--- OUTSIDE RECORDS SUMMARY | 2025-07-21 11:33 | XMS_ITS | Patient Health Record ---
Author Organization [facility] Address [address] [place], [place] [id number] Care Team Providers Care Ramp Manager Name Role Phone SHALONDA BEAVERS Unavailable [phone] Jaylon Garnett Unavailable Unavailable Reason For Referral No Information Social History Social History Additional Details Category Social Info Options Details Migrated Social History Migrated Social History History of tobacco use : , Smoking Status : Never smoked Plan Of Treatment No Information Insurance Providers Payer Name Payer Address Payer Phone Subscriber Number Group Number Insured Name Patient Relationship to Insured Coverage Start Date Coverage End Date Medicare Part B [place] [address] [facility] [place] [phone] [id number] [place] Self - patient is the insured
--- OUTSIDE RECORDS SUMMARY | 2025-07-21 11:33 | XMS_ITS | Clinical Summary ---
Author Organization [facility] Address [address] [place] [address] Care Team Providers Care Pocket Marker Name Role Phone Jaylon Garnett MD Primary Care Provider [phone] Source Comments [facility],non-owned Affiliates and Associated Physician Practices is amultiple site organization consisting of ambulatory clinics and hospital sitesin [place], [place], [place] and [place]. This disclosure is being madepursuant to the Care Everywhere program and may not contain all information available regarding this patient. Last updated 18.[facility] Allergies No known active allergies Medications * [...] STATE MEDICARE MEDICAID - [place] Care Teams Pocket Marker Relationship Specialty Start Date End Date Jaylon Garnett MD [address] [place] [address] PCP - General Family Medicine 02/27/18
--- OUTSIDE RECORDS SUMMARY | 2025-07-21 11:33 | XMS_ITS | Clinical Summary ---
Author Organization [facility] Address [facility] [place] [address] Care Team Providers Care Boiler Operator Name Role Phone Unavailable Primary Care Provider [...] Scan (General) 02/11/2025 COVID-19 Vaccine (1 - 2024-2 6 season) 2025 Influenza Adult (#1) 2025 07/07/2016 RSV Immunization or 60+ Years (1 - 1-dose 75+ series) 02/11/2035 Hepatitis A Vaccines Aged Out No long er eligible based on patient's age to complete this topic Meningococcal B Vaccine Aged Out No l onger eligible based on patient's age to complete this topic Meningococcal Vaccine Aged Out No wesley guanaco eligible based on patient's age to complete this topic RSV Immunizations Under 20 Months Aged Out No longer eligible based on patient's age to complete this topic
== END 2025-07-21 10:13 | disposition home or self-care (01) ==
LOC: CHSIMG 10:14
PROVIDERS: PCP Family Medicine; Visit Provider Family Medicine
DX: R10.11 Right upper quadrant pain (principal)
CPT/HCPCS: 78227; A9537; J2805

== ENCOUNTER 2025-07-22 11:15 | Outpatient (CLI) | payer MEDICARE, MEDICAID, SELFPAY ==
--- NOTE | ~2025-07-22 | XR_ITS ---
XR thoracic spine 3V Indication: Dorsalgia Comparison: None Findings: Minimal loss of vertebral height, no fracture or subluxation. Moderate loss of disc height throughout. Soft tissues unremarkable Impression: No acute abnormality. Reviewed, dictated and finalized at location P. Impression: No acute abnormality.
--- NOTE | ~2025-07-22 | XR_ITS ---
XR lumbar spine 2-3V Indication: Dorsalgia Comparison: None Findings: Minimal loss of vertebral height, no acute fracture or subluxation. Moderate loss of disc height T12-L1, L1-2 and L5-S1. Soft tissues unremarkable Impression: No acute abnormality. Reviewed, dictated and finalized at location P. Impression: No acute abnormality.
--- OUTSIDE RECORDS SUMMARY | 2025-07-22 13:21 | XMS_ITS | Patient Health Record ---
Author Organization [facility] Address [address] [place], [place] [id number] Care Team Providers Care Production Support Manager Name Role Phone SHALONDA BEAVERS Unavailable [phone] Jaylon Garnett Unavailable Unavailable Reason For Referral [...] Date Coverage End Date Medicare Part B [place] [address] [place] [address] [id number] [place] Self - patient is the insured
--- OUTSIDE RECORDS SUMMARY | 2025-07-22 13:21 | XMS_ITS | Clinical Summary ---
Author Organization [facility] Address [facility] [place] [address] Care Team Providers Care Plastics Plater Name Role Phone Unavailable Primary Care Provider [...]
--- OUTSIDE RECORDS SUMMARY | 2025-07-22 13:21 | XMS_ITS | Clinical Summary ---
Author Organization [facility] [employer] Address [address] [place] [address] Care Team Providers Care Marketing Admin Name Role Phone Jaylon Garnett MD Primary Care Provider [phone] [phone] Source Comments [facility] [employer],non-owned Affiliates and Associated Physician Practices is amultiple site organization consisting of ambulatory clinics and hospital sitesin [place], [place], [place] and [place]. This disclosure is being madepursuant to the Care Everywhere program and may not contain all information available regarding this patient. Last updated 18.[facility] Allergies No known active allergies Medications * [...] STATE MEDICARE MEDICAID [place] Care Teams Marketing Admin Relationship Specialty Start Date End Date Jayoln Garnett MD [address] [place] [address] PCP - General Family Medicine 02/27/18
== END 2025-07-22 11:16 | disposition home or self-care (01) ==
LOC: CHSIMG 11:18
PROVIDERS: PCP Family Medicine; Visit Provider Family Medicine
DX: M54.9 Dorsalgia, unspecified (principal)
CPT/HCPCS: 72072; 72100

== ENCOUNTER 2025-07-23 17:10 | Outpatient (CLI) | payer MEDICARE, MEDICAID, SELFPAY ==
--- OUTSIDE RECORDS SUMMARY | 2025-07-23 18:04 | XMS_ITS | Patient Health Record ---
Author Organization [facility] Address [address] [place], [place] [id number] Care Team Providers Care Paving Crew Foreman Name Role Phone SHALONDA BEAVERS Unavailable [phone] Jaylon Garnett Unavailable Unavailable Reason For Referral [...] Medicare Part B [place] [address] [facility] [facility] [place] [address] [id number] [place] Self - patient is the insured
--- OUTSIDE RECORDS SUMMARY | 2025-07-23 18:04 | XMS_ITS | Clinical Summary ---
Author Organization [facility] Address [facility] [place] [address] Care Team Providers Care Shift Production Associate Name Role Phone Unavailable Primary Care Provider [...]
--- OUTSIDE RECORDS SUMMARY | 2025-07-23 18:04 | XMS_ITS | Clinical Summary ---
Author Organization [facility] [employer] Address [address] [place] [address] Care Team Providers Care Hide Worker Name Role Phone Jaylon Garnett MD Primary Care Provider [phone] Source Comments [facility] [employer],non-owned Affiliates and Associated Physician Practices is amultiple site organization consisting of ambulatory clinics and hospital sitesin [place], [place], [place] and [place]. This disclosure is being madepursuant to the Care Everywhere program and may not contain all information available regarding this patient. Last updated 18.[facility] [employer] Allergies No known active allergies Medications * [...] STATE MEDICARE MEDICAID [place] Care Teams Hide Worker Relationship Specialty Start Date End Date Jaylon Garnett MD [address] [place] [address] PCP - General Family Medicine 02/27/18
[2025-07-23 18:08] LABS: Toxigenic C. Diff NEGATIVE (NEGATIVE)
== END 2025-07-23 17:11 | disposition home or self-care (01) ==
LOC: CHSLAB 17:14
PROVIDERS: PCP Family Medicine; Visit Provider Family Medicine
DX: R19.7 Diarrhea, unspecified (principal)
CPT/HCPCS: 82272; 87045; 87046; 87427; 87493

== ENCOUNTER 2025-08-07 15:11 | Outpatient (CLI) | payer MEDICARE, MEDICAID, SELFPAY ==
--- NOTE | ~2025-08-07 | MR_ITS ---
EXAMINATION: MR thoracic spine wo/w con DATE: 08/07/2025 16:29 INDICATION: Back pain TECHNIQUE: Magnetic resonance imaging (MRI) of the thoracic spine was performed with intravenous contrast. Sagittal localizer T1-weighted FSE of the cervical spine was obtained. Thoracic spine sequences included sagittal T2-weighted FSE, sagittal T1-weighted FSE, sagittal T2-weighted FS FSE, and axial T2-weighted FSE. COMPARISON: Plain films from July 22, 2025 FINDINGS: Degenerative changes present throughout the thoracic spine involving disc spaces and posterior elements. No discrete medullary cord lesions or gross myelopathic changes. No spinal canal stenosis or discrete disc protrusion. No acute or aggressive bony or soft tissue process seen. On postcontrast series, no abnormal enhancing lesions or pathology identified. IMPRESSION: 1. Multilevel degenerative changes involving disc spaces and posterior elements. No spinal canal stenosis or discrete disc protrusion. 2. Normal appearance of the thoracic spinal cord. Reviewed, dictated and finalized at location A. NTO DEVELOPER IMPRESSION: 1. Multilevel degenerative changes involving disc spaces and posterior elements . No spinal canal stenosis or discrete disc protrusion. 2. Normal appearance of the thoracic spinal cord.
--- OUTSIDE RECORDS SUMMARY | 2025-08-07 15:14 | XMS_ITS | Patient Health Record ---
Author Organization [facility] Address [address] [place], [place] [id number] Care Team Providers Care Screen Examiner Name Role Phone SHALONDA BEAVERS Unavailable [phone] Jaylon Garnett Unavailable Unavailable Reason For Referral [...] Part B [place] [address] [place] [facility] [place] [address] [id number] [place] Self - patient is the insured
--- OUTSIDE RECORDS SUMMARY | 2025-08-07 15:14 | XMS_ITS | Clinical Summary ---
Author Organization [facility] [employer] Address [address] [place] [address] Care Team Providers Care Guard Museum Name Role Phone Jaylon Garnett MD Primary Care Provider [phone] Source Comments [facility] [employer],non-owned Affiliates and Associated Physician Practices is amultiple site organization consisting of ambulatory clinics and hospital sitesin [place], [place], [place] and [place]. This disclosure is being madepursuant to the Care Everywhere program and may not contain all information available regarding this patient. Last updated 18.[facility] [employer] Allergies No known active allergies Medications * [...] STATE MEDICARE [place]ID [place] Care Teams Guard Museum Relationship Specialty Start Date End Date Jaylon Garnett MD [address] [place] [address] PCP - General Family Medicine 02/27/18
--- OUTSIDE RECORDS SUMMARY | 2025-08-07 15:14 | XMS_ITS | Clinical Summary ---
Author Organization [facility] Address [address] [facility] [place] [address] Care Team Providers Care Milk Deliverer Name Role Phone Unavailable Primary Care Provider [...]
--- NOTE | 2025-08-07 15:17 | ECG_ITS ---
Test Date: 2025-08-07 15:27:06 Measurements Intervals [place] Rate: 66 P: 51 AR: 141 QRS: 37 QRSD: 105 T: 34 QT: 372 QTc: 391 Interpretive Statements SINUS RHYTHM WITH SINUS ARRHYTHMIA NONSPECIFIC ST & T-WAVE ABNORMALITY Compared to ECG 08/05/2024 16:02:01 T-wave abnormality now present Ventricular premature complex(es) no longer present Electronically Signed On 08-08-2025 13:30:25 POSTAL INSPECTOR by Jaden Hendricks M.D.
== END 2025-08-07 15:12 | disposition home or self-care (01) ==
PROVIDERS: PCP Family Medicine; Visit Provider Family Medicine
DX: I10 Essential (primary) hypertension (principal); E78.5 Hyperlipidemia, unspecified; M54.9 Dorsalgia, unspecified; R94.31 Abnormal electrocardiogram [ECG] [EKG]; I49.8 Other specified cardiac arrhythmias
CPT/HCPCS: 72157; 93005; A9577

== ENCOUNTER 2025-08-15 01:55 | Day surgery (SDC) | payer MEDICARE, MEDICAID, SELFPAY ==
[2025-08-07 12:25] VITALS: BMI 31.1
--- NOTE | 2025-08-07 12:37 | PC.NURSE ---
[facility] has started construction of its new state of the art ER which will open Spring 2026. With this, we anticipate parking may be a challenge for some our surgical patients and families. Parking spaces are limited but are available for all Surgical, obstetrics, and ER patients sharing this lot. If you arrive and find you are having a hard time finding a parking space, please note that we understand the challenges, please drive around the hospital and park near Hospital Entrance 1. When you enter this entrance, you can ask a volunteer to direct or take you back to the surgical waiting area to check in. We appreciate everyone?s understanding of these expected challenges while we build for your future. Report to the Outpatient Waiting Room, entrance under the green pavilion located off [address], at time __07:00am on date 08/15/25 . Planned Procedure Time: __09:00am .? Time changes happen often and if your time is changed the preop area will call you the afternoon before. - You and your visitor will be asked to self-screen and do not enter if you have any COVID symptoms. Please call surgeon if you need to reschedule. - A mask is optional within the hospital at this time. Patients may have clear liquids (water, carbonated beverages, clear teas, apple juice) until 3 hours prior to surgery with a maximum of 20 ounces. - No food from midnight until time of surgery and no smoking, or chewing tobacco (or any form of nicotine). No chewing gum, candy or mints. (0600am) Take only the following medications with a SIP of water on the morning of surgery: NONE- Bring rescue inhaler DO NOT STOP ANY OF YOUR OTHER PRESCRIPTION MEDICATIONS PRIOR TO SURGERY EXCEPT THE FOLLOWING Hold all vitamins and supplements for 3 days per anesthesiologist. 08/11/25 Medications to discontinue per physician NONE Date to take last dose NONE Please no make-up, nail bengali, hairspray, perfume, deodorant, or body powder the day of surgery.? No jewelry (including any body piercings) or valuables the day of surgery, leave them at home.? Please take a shower or bath the night before, or the morning of, surgery with an antibacterial soap.? Wear comfortable, loose fitting clothing.? - Jewelry must be removed prior to entering the operating room.? Rings and piercings that are not removed may be cut off. - The hospital will not accept responsibility for valuables.? - Please leave all valuables, including medications, at home the day of surgery. If you are going home after surgery, a licensed explosives truck driver must drive you home.? - NO public transportation without another adult if you receive anesthesia. - We recommend that an adult stay with you for 24 hours following discharge. - We also recommend that you do not drive, make important decision, drink alcoholic beverages, or take any drugs that were not prescribed by your health care provider for at least 24 hours after your discharge time. Follow any additional instructions given to you from your surgeon. Telephone instructions given to __Patient and asked if any additional questions and then verbalized understanding. Patient advised to call surgeon office or pre surgery nurse liaison [phone] if any additional questions.
[2025-08-15] VITALS (11 sets, daily range): BP systolic 109–136; BP diastolic 61–85; PULSE 59–85; RESP 12–21; TEMP 35.8–36.7; O2SAT 94–100
--- OUTSIDE RECORDS SUMMARY | 2025-08-15 01:59 | XMS_ITS | Clinical Summary ---
Author Organization [facility] [employer] Address [address] [place] [address] Care Team Providers Care Silver Chaser Name Role Phone Jaylon Garnett MD Primary Care Provider [phone] Source Comments [facility] [employer],non-owned Affiliates and Associated Physician Practices is amultiple site organization consisting of ambulatory clinics and hospital sitesin [place], [place], [place] and [place]. This disclosure is being madepursuant to the Care Everywhere program and may not contain all information available regarding this patient. Last updated 18.[facility] [employer] Allergies No known active allergies Medications * [...] 02/07/1978 DTAP/TDAP/TD VACCINES (1 - Tdap) 02/11/1979 PAP SMEAR 02/11/1981 Cervical Cancer Screening 02/11/1990 PAP with HPV 02/11/1990 PNEUMOCOCCAL VACCINE 50+ (1 of 1 - PCV) 02/11/2010 ZOSTER VACCINE (1 of 2) 02/11/2010 SCREENING FOR DIABETES 03/09/2018 DEPRESSION SCREENING 09/25/2024 COVID-19 VACCINE (1 - 2024-2 6 season) 2025 INFLUENZA VACCINE (#1) 2025 Respiratory [...] STATE MEDICARE MEDICAID - [place] Care Teams Silver Chaser Relationship Specialty Start Date End Date Jaylon Garnett MD [address] [place] [id number] PCP - General Family Medicine 02/27/18
--- OUTSIDE RECORDS SUMMARY | 2025-08-15 01:59 | XMS_ITS | Clinical Summary ---
Author Organization [facility] Address [facility] [place] [address] Care Team Providers Care Sheet Tailer Name Role Phone Unavailable Primary Care Provider [...] topic Meningococcal Vaccine Aged Out No wesley guaanco eligible based on patient's age to complete this topic RSV Immunizations Under 20 Months Aged Out No longer eligible based on patient's age to complete this topic
[2025-08-15] MEDS: KETOROLAC 15 MG/ML VIAL (*BKC) IV PUSH ×2 (08:30→10:45)
[2025-08-15] MEDS: ACETAMINOPHEN 500 MG TABLET 1000 MG PO (08:30)
[2025-08-15] MEDS: LACTATED RINGERS 1,000 ML 30 ML IV CONT ×2 (08:30→11:05)
--- NOTE | 2025-08-15 09:17 | WPDHPUPDATE1 ---
History and Physical Update Update Date/Time: 08/15/25 09:17 History and Physical has been reviewed, including an updated exam of the patient. There are NO changes in the patient's condition. Risks, benefits, and alternatives have been discussed and questions answered. Patient agrees to proceed with procedure.
--- NOTE | 2025-08-15 09:33 | WPDANESEPPF ---
Anes - Initial Pre Proc Eval Procedure: Operation Date: 08/15/25 09:00 Proposed Procedures p Robotic Cholecystectomy, Possible Open - Paul Tracey MD Date/Time: 08/15/25 09:33 Surgeon: Paul Tracey MD Pre Op Diagnosis: biliary colic Patient Data Age: 65 Gender: F Height: 1.68 m Weight: 86.4 kg Last Vital Signs Temp 96.4 F L 08/15/25 08:30 Pulse 61 08/15/25 08:30 Resp 14 08/15/25 08:30 BP 127/71 08/15/25 08:30 Pulse Ox 97 08/15/25 08:30 O2 Del Method Room Air 08/15/25 08:30 Allergies Allergy/AdvReac Type Severity Reaction Status Date / Time codeine AdvReac Mild NAUSEA AND Verified 08/15/25 09:23 VOMITTING Sulfa (Sulfonamide AdvReac Mild Nausea Verified 08/15/25 09:23 Antibiotics) Home Medications ?Medication ?Instructions ?Recorded ?Confirmed ?Type duloxetine 60 mg capsule,delayed 60 mg PO .PM 10/22/19 08/07/25 History release metoprolol tartrate 25 mg tablet 25 mg PO .PM 02/07/20 08/07/25 History sumatriptan succinate 100 mg tablet 100 mg PO PRN PRN Headache 02/07/20 08/07/25 History lisinopril 10 mg tablet 10 mg PO DAILY 08/05/24 08/07/25 History albuterol sulfate 2.5 mg/3 mL 2.5 mg inhalation Q6H 08/05/25 08/07/25 History (0.083 %) solution for nebulization albuterol sulfate 90 mcg/actuation 1 inh inhalation Q4H 08/05/25 08/07/25 History aerosol inhaler (Ventolin HFA) multivitamin 1 tablet PO DAILY 08/05/25 08/07/25 History Patient hx anesthesia problems: none Family hx anesthesia problems: none Results Review: All pre-operative results and documents have been reviewed as part of the pre-operative evaluation. 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 H/O breast biopsy Family History Family History (Updated 08/05/25 @ 10:12 by Whitney Scherer MA) Father Diabetes mellitus Depression Hypertension Heart disease Mother Cancer Social History Social History Smoking status: Never smoker Second hand tobacco smoke exposure: No Alcohol intake: never Substance use: never Substance use type: does not use Living arrangements: alone Gender identity (if verbalized by the patient): Female Spiritual care concerns: No Anes - Eval Final PreProcedure Day of Procedure 08/15/25 09:33 Patient weight: obese Heart: regular rate and rhythm Lungs: clear to auscultation Airway: Mallampati scale class II Neurological: alert and oriented Last oral intake: >/= 8 hours ASA classification: III Emergent: no Anesthetic plan: proceed Anesthesia type and monitoring: general ETT and standard monitoring Results Review: All pre-operative results and documents have been reviewed as part of the pre-operative evaluation. Informed Consent: The patient's anesthetic plan and its attendant risks and benefits were discussed with the patient/family/POA. Questions were solicited and answers provided to the satisfaction of the patient/family/POA.
[2025-08-15] MEDS: ceFAZolin 2 GM in SODIUM CHLORIDE 0.9% IV 50 ML 100 ML IVPB (09:38)
[2025-08-15] MEDS: BUPivacaine HCL 0.5% 10 ML AMP 30 ML INFILTRATE (10:07)
[2025-08-15] MEDS: LIDO 1%/EPINEPHRINE/PF 1:200,000 30 ML VIAL XX (10:07)
--- NOTE | 2025-08-15 10:30 | S_PTH ---
PATIENT: Vanita Valladares LOC: [facility] U#:[id number] AGE/SX: 65/F ROOM: RE08/15/[address]: Paul Tracey MD : 1960 BED: DIS: 08/15/2025 SPEC #: [id number] RECD: 08/15/25 13:11 STATUS: ZULEMA REQ #: [id number] ANISH: 08/15/25 10:[address]: Paul Tracey DEPT: [facility] Surgical RECD BY: Roxie Yepez ENTERED: 08/15/25 13:11 SP TYPE: Surgical OTHR DR: Jaylon Garnett MD Tissues: A - Gallbladder Procedures: Hematoxylin and Eosin Stain Gross and Microscopic Level 3
--- NOTE | 2025-08-15 11:27 | P.OP_ITS ---
Procedure Note - Detailed Date of Procedure 08/15/25 Pre-op Diagnosis Biliary colic secondary to gallbladder dysfunction Post-op Diagnosis Same Procedure Performed Laparoscopic cholecystectomy Surgeon Paul Tracey MD Supervisor Education Soniya GARDINER Anesthesia General Indications Patient is a 65-year-old female who has been having issues with right upper quadrant abdominal pain which radiates to her right shoulder. He also has stool urgency after eating. Fatty food seems to make her symptoms worse. Abdominal distention no evidence of gallstones. She had a HIDA scan performed which showed a low ejection fraction of gallbladder at 20% signifying some gallbladder dysfunction. She presents now for elective laparoscopic cholecystectomy. Findings The gallbladder was partially enveloped with a layer of fatty adipose tissue. There was no adhesions of the omentum, stomach, duodenum, or colon to the gallbladder. The gallbladder wall was not particularly thickened and there was no obvious evidence of acute cholecystitis. No evidence of chronic cholecystitis either. Description of Procedure After informed consent was obtained the patient brought to the operating room she was placed in the supine position and general endotracheal anesthesia was administered. The abdomen was then prepped and draped usual sterile fashion. A time-out was then performed correctly identifying the patient as well as the procedure to be performed. She was given perioperative IV antibiotics. I then proceeded to enter the abdomen left upper quadrant utilizing a 5mm Optiview port. Once inside the abdomen insufflated to adequate pneumoperitoneum of 15mmHg of CO2. Under direct visualization a periumbilical 5mm trocar port was then placed in the laparoscopic switched over to this port and then looking into the epigastric region the abdomen I then placed a 10mm epigastric trocar port and then 2 more right lateral subcostal 5mm trocar ports all under direct visualization. The gallbladder was mildly distended. It was enveloped within a thin layer of visceral adipose tissue which was not the omentum. It was then held at the dome with a laparoscopic grasper and elevated over the right half liver towards right shoulder. I then proceeded to strip down the visceral peritoneum and adipose tissue into identified the infundibular gallbladder. A 2nd grasper was then used to hold the gallbladder at the infundibulum. The lateral traction on the infundibulum I then proceeded to continue my dissection of the visceral peritoneum off of the infundibular gallbladder to identify the cystic duct. The cystic duct was then dissected out circumferentially. Cystic artery was identified and dissected out circumferentially as well. Posterior wall the gallbladder at the infundibulum was dissected off of the liver into the critical view was obtained. At this point I then placed 2 clips proximally cystic duct and 2 clips distally high on infundibular gallbladder. The cystic duct was then divided Endo Rebeca. In a similar fashion the cystic artery was then clipped and divided as well. The gallbladder was then resected off the liver electrocautery. At 1 point the gallbladder wall was opened with the cautery and then none fact did bile drained out of the gallbladder. There was no gallstones noted. Once the gallbladder was completely free from liver is placed into an Endo-Catch bag and brought out through the epigastric port site. The gallbladder was sent to pathology for examination. I then aspirated much of the bile as I could from the right upper quadrant. I then irrigated with a L of normal saline solution. At the end of the irrigation the aspirated fluid was relatively clear. The gallbladder liver fossa was hemostatic. No other obvious evidence of bile leak was seen. I then removed all the trocar ports under direct visualization all port sites appeared hemostatic. The the abdomen was then allowed to decompress. The port sites irrigated sterile saline solution hemostasis was good. The 10mm epigastric trocar port fascial defect was then closed utilizing 0 Vicryl suture at the fascial level. The skin edges in all the port sites were then approximated utilizing a running subcuticular 4 Monocryl suture. Incisions were then cleaned and skin glue was applied. The patient tolerated the procedure well no complications. All sponges, needles, and instrument counts were correct at the end procedure. EBL was _20__cc. The patient was awakened and taken to recovery in stable and satisfactory condition. Implants None Estimated Blood Loss 20 Drains No Packing No Pathology Yes ( gallbladder to pathology) Complications No immediate complications Condition Stable Disposition PACU [facility] Billing Surgery - Charge Forward: Surgery Billing
== END 2025-08-15 13:57 | disposition home or self-care (01) ==
PROVIDERS: PCP Family Medicine; Visit Provider Surgery
PROC: 0FT44ZZ Resection of Gallbladder, Percutaneous Endoscopic Approach (ICD-10-PCS; CPT 47562; principal; 2025-08-15 09:00)
DX: K82.8 Other specified diseases of gallbladder (principal); K80.20 Calculus of gallbladder without cholecystitis without obstruction; E78.5 Hyperlipidemia, unspecified; I10 Essential (primary) hypertension; F41.9 Anxiety disorder, unspecified; K21.9 Gastro-esophageal reflux disease without esophagitis; F32.A Depression, unspecified; J44.9 Chronic obstructive pulmonary disease, unspecified; M79.7 Fibromyalgia; G90.09 Other idiopathic peripheral autonomic neuropathy; E66.9 Obesity, unspecified; Z68.30 Body mass index [BMI] 30.0-30.9, adult; Z79.51 Long term (current) use of inhaled steroids; Z79.891 Long term (current) use of opiate analgesic; Z79.1 Long term (current) use of non-steroidal anti-inflammatories (NSAID); Z98.890 Other specified postprocedural states; Z80.9 Family history of malignant neoplasm, unspecified; Z82.49 Family history of ischemic heart disease and other diseases of the circulatory system
CPT/HCPCS: 47562; 88304; J0690; A9270; J1100; J1171; J1885; J2003; J2004; J2250; J2405; J2704; J3010; J7030; J7120